=== PATIENT | female | born 1950 | race Caucasian/White ===

== ENCOUNTER 2019-05-15 00:03 | Inpatient (IN) | payer MEDICARE, MEDICAID ==
[~2019-05-15] VITALS: Ht 162.6 cm; Wt 92.6 kg
[2019-05-15 00:03] VITALS: BP 171/70
[~2019-05-15 00:03] MED LIST: NORCO 5-325 TA1 EACH ORAL
--- NOTE | 2019-05-15 00:03 | NUR ---
ED Nurse Note: Patient brought in by RA from home c/o SOB x 12hrs on and off. Saturation 96% on O2 tx @2L/min via nc. Not in any distress. Bilateral lungs are clear. Afebrile. VSS. Patient placed on cardiac cath rn.
--- NOTE | 2019-05-15 00:10 | NUR ---
ED Nurse Note: ERMD at bedside.
--- NOTE | 2019-05-15 00:30 | NUR ---
ED Nurse Note: IV line established. blood specimen collected and sent to lab.
--- NOTE | 2019-05-15 00:37 | NUR ---
ED Nurse Note: Xrya at bedside.
[2019-05-15 00:41] LABS: EOSINOPHILS % (AUTO) 1.5 % (0.0-3.0); HEMATOCRIT 25.7 % (37.0-47.0); HEMOGLOBIN 8.8 G/DL (12.0-16.0); LYMPHOCYTES % (AUTO) 14.5 % (20.0-45.0); MEAN CORPUSCULAR VOLUME 81 FL (80-99); MONOCYTES % (AUTO) 6.3 % (1.0-10.0); NEUTROPHILS % (AUTO) 76.8 % (45.0-75.0); PLATELET COUNT 180 K/UL (150-450); RED BLOOD COUNT 3.15 M/UL (4.20-5.40); RED CELL DISTRIBUTION WIDTH 13.3 % (11.6-14.8); WHITE BLOOD COUNT 7.1 K/UL (4.8-10.8)
[2019-05-15 01:06] LABS: ANION GAP 10 mmol/L (5-15); BLOOD UREA NITROGEN 34 mg/dL (7-18); CALCIUM 8.7 MG/DL (8.5-10.1); CARBON DIOXIDE 24 MMOL/L (21-32); CHLORIDE 112 MMOL/L (98-107); CREATININE 1.1 MG/DL (0.55-1.30); POTASSIUM 3.5 MMOL/L (3.5-5.1); SODIUM 145 MMOL/L (136-145)
[2019-05-15 01:17] LABS: ALANINE AMINOTRANSFERASE 9 U/L (12-78); ALBUMIN 2.8 G/DL (3.4-5.0); ALBUMIN/GLOBULIN RATIO 0.8 (1.0-2.7); ALKALINE PHOSPHATASE 70 U/L (46-116); ASPARTATE AMINO TRANSFERASE 12 U/L (15-37); BILIRUBIN,TOTAL 0.7 MG/DL (0.2-1.0)
--- NOTE | 2019-05-15 01:26 | Diagnostic Imaging Report ---
Indication: Shortness of breath Technique: One view of the chest Comparison: none Findings: There is bilateral interstitial disease, worse on the left than on the right. There is probably a pleural effusion on the left. There is some atelectasis at the right lung base. The heart size is borderline enlarged. There are left axillary surgical clips Impression: Borderline cardiomegaly Left effusion Bilateral interstitial congestion This agrees with the preliminary interpretation provided overnight by [facility] teleradiology service.
[2019-05-15] MEDS ORDERED: Hydromorphone 0.5mg/0.5ml inj IVP ONE ×2 (01:30→02:30)
--- NOTE | 2019-05-15 02:24 | NUR ---
ED Nurse Note: Pt seen sleeping in bed. No SOB. Not in nay distress. Will cont to monitor.
[2019-05-15 02:29] VITALS: BP 141/85
[2019-05-15] MEDS ORDERED: HYDROmorphone 1mg/ml Carpuject SUBQ PRN (04:00)
[2019-05-15 04:01] VITALS: BP 105/63
[2019-05-15] MEDS ORDERED: UNOBMED (04:08)
--- NOTE | 2019-05-15 04:28 | NUR ---
ED Nurse Note: Report given to Godwin STERLING.
[2019-05-15 04:30] VITALS: BP 120/85
--- NOTE | 2019-05-15 04:30 | NUR ---
TRANSFER TO FLOOR: Patient transferred to Telemetry unit. Report given to Godwin Carlton. Pt alert and oriented, verbally responsive. On O2 @2L/min via nc, saturating 100%. sinus rhythm. VSS. IV line on right AC 20g patent and intact. On Levaquin 750mg and NS 500ml, patent and infusing well. Afebrile. Pt unable to recall medications shes taking at home. Belongings list done. Family aware of the transfer.
--- NOTE | 2019-05-15 04:35 | NUR ---
NURSE NOTES: Luz Maria aeronautical test engineer received orders from Dr. Monroy: - Admitted inpatient for Pneumonia - continue home meds - pureed diet - DVT (SCDs) - follow pt's wishes for code status - Tylenol 500 mg PO q4h PRN for mild pain and temp over 100.5 - Dr. Rodriguez for pneumo - Dr. Kristopher Sharma for ID - Dr. Gama for renal - Dr. Kaur for cardio
[2019-05-15 04:45] VITALS: BP 159/73
--- NOTE | 2019-05-15 04:55 | NUR ---
NURSE NOTES: Received pt from [facility] alert and oriented x4 with no acute s/s of distress noted. Pale and jaundiced in appearance. On 2L NC, saturating at 99% VS stable, c/o of 8/10 headache. No wounds noted upon admission - but pt has notable dry scab scratches on bilateral lower extremities. Pt has only 1 night gown with her which pt refuses to remove and refuses to wear hospital gown. ekg monitor tech - Sinus Rhythm (78). Bed in lowest position, call light and belongings within reach.
--- NOTE | 2019-05-15 04:57 | NUR ---
NURSE NOTES: Pt unable to recall home meds. RN called and left message for son Bishop York ([phone]) to obtain meds, son did not answer phone call. Will ask morning shift to follow up.
--- NOTE | 2019-05-15 05:10 | NUR ---
NURSE NOTES: RN called son Fracisco York ([phone]) to obtain home meds for patient. Per Fracisco, "I did not consent to my mom to be admitted to this hospitall. She said that she wanted to be admitted to [facility] since her doctors are there." RN spoke with patient who stated, "When can I leave and be transferred to [facility]?" RN spoke with patient that she is admitted in telemetry unit of [facility] and transfer to [facility] will require further documentation, steps, and phone calls to accommodate transfer. Pt stated, "No, no. I wanted to be transferred to [facility], I did not want to be admitted in this hospital. My doctors are at [facility], they know how to take care of me." RN spoke with son, Fracisco, who stated that he will come in the AM to see his mom and speak to physician.
--- NOTE | 2019-05-15 05:27 | Emergency Room Report ---
History of Present Illness General Chief Complaint: Upper Respiratory Illness Source: Patient Present Illness HPI 69-year-old female presents ED for evaluation. Brought in by EMS from home. Complaining of shortness of breath x1 day. On and off. Denies chest pain. Denies cough. Denies fevers or chills. Status post renal transplant x2. Is on multiple medications. States she is compliant with her medications. States she was hospitalized about 1 month ago at [facility]. No other aggravating relieving factors. Denies any other associated symptoms Allergies: Coded Allergies: No Known Allergies (Unverified , 06/26/17) Patient History Past Medical History: DM, HTN, CHF Past Surgical History: other - kidney transplnt Pertinent Family History: none Social History: Denies: smoking, alcohol use, drug use Last Menstrual Period: na Now: No : 2 Para: 2 Immunizations: UTD Reviewed Nursing Documentation: PMH: Agreed; PSxH: Agreed Nursing Documentation-PMH Hx Cardiac Problems: Yes - CHF Hx Hypertension: Yes Hx Diabetes: Yes Hx Dialysis: No - kidney transplant Review of Systems All Other Systems: negative except mentioned in HPI Physical Exam Vital Signs Date Time Temp Pulse Resp B/P (MAP) Pulse Ox O2 Delivery O2 Flow Rate FiO2 05/14/19 23:57 97.9 84 20 171/70 (103) 93 Room Air 05/15/19 00:03 2.0 Sp02 EP Interpretation: reviewed, normal General Appearance: no apparent distress, alert, GCS 15, non-toxic Head: normocephalic, atraumatic Eyes: bilateral eye normal inspection, bilateral eye PERRL ENT: hearing grossly normal, normal pharynx, no angioedema, normal voice Neck: full range of motion, supple/symm/no masses Respiratory: chest non-tender, normal breath sounds, crackles, speaking full sentences Cardiovascular #1: regular rate, rhythm, no edema Cardiovascular #2: 2+ carotid (R), 2+ carotid (L), 2+ radial (R), 2+ radial (L) , 2+ dorsalis pedis (R), 2+ dorsalis pedis (L) Gastrointestinal: normal bowel sounds, non tender, soft, non-distended, no guarding, no rebound Rectal: deferred Genitourinary: normal inspection, no CVA tenderness Musculoskeletal: back normal, normal range of motion, gait/station normal, non- tender Neurologic: alert, motor strength/tone normal, oriented x3, sensory intact, responsive, speech normal Psychiatric: judgement/insight normal, memory normal, mood/affect normal, no suicidal/homicidal ideation Reflexes: 3+ bicep (R), 3+ bicep (L), 3+ tricep (R), 3+ tricep (L), 3+ knee (R) , 3+ knee (L) Skin: other - see nursing skin notes Lymphatic: no adenopathy Medical Decision Making Diagnostic Impression: Primary Impression: Pneumonia Qualified Codes: J18.9 - Pneumonia, unspecified organism Additional Impressions: CHF (congestive heart failure) Qualified Codes: I50.9 - Heart failure, unspecified Renal transplant, status post ER Course Hospital Course 69-year-old female presents ED complaining of shortness of breath Differential diagnoses include: IN/unstable angina, contusion, muscle strain, PTX, rib fracture Clinical course Patient placed on stretcher. on quality assurance monitor final. After initial history and physical I ordered labs, EKG, chest x-ray labs reviewed- no leukocytosis, hemoglobin/hematocrit stable, Cr ok, troponins negative, BNP elevated EKG - NSR, no acute ischemic changes inteprreted by me Chest x-ray- intersttial congestion - CHF vs PNA Multiple attempts made to contact PMD Dr. Bishop Villar. [facility] unable to accept patient at this time. Antibiotics given. Case discussed with Dr. Monroy and he agreed to accept the patient to his service for further care and support I. I feel this is a highly complex case requiring extensive working including EKG/Rhythm strip, Xray/CT/US, Blood/urine lab work, repeat exams while in ED, and administration of strong opiates/narcotics for pain control, admission to hospital or close patient follow up. Diagnosis - PNA, CHF, s/p renal transplant admitted to telemetry in serious condition Labs Test 05/15/19 00:31 05/15/19 03:40 White Blood Count 7.1 K/UL (4.8-10.8) Red Blood Count 3.15 M/UL (4.20-5.40) Hemoglobin 8.8 G/DL (12.0-16.0) Hematocrit 25.7 % (37.0-47.0) Mean Corpuscular Volume 81 FL (80-99) Mean Corpuscular Hemoglobin 27.9 PG (27.0-31.0) Mean Corpuscular Hemoglobin Concent 34.3 G/DL (32.0-36.0) Red Cell Distribution Width 13.3 % (11.6-14.8) Platelet Count 180 K/UL (150-450) Mean Platelet Volume 6.0 FL (6.5-10.1) Neutrophils (%) (Auto) 76.8 % (45.0-75.0) Lymphocytes (%) (Auto) 14.5 % (20.0-45.0) Monocytes (%) (Auto) 6.3 % (1.0-10.0) Eosinophils (%) (Auto) 1.5 % (0.0-3.0) Basophils (%) (Auto) 1.0 % (0.0-2.0) Sodium Level 145 MMOL/L (136-145) Potassium Level 3.5 MMOL/L (3.5-5.1) Chloride Level 112 MMOL/L (98-107) Carbon Dioxide Level 24 MMOL/L (21-32) Anion Gap 10 mmol/L (5-15) Blood Urea Nitrogen 34 mg/dL (7-18) Creatinine 1.1 MG/DL (0.55-1.30) Estimat Glomerular Filtration Rate mL/min (>60) Glucose Level 209 MG/DL (74-106) Calcium Level 8.7 MG/DL (8.5-10.1) Total Bilirubin 0.7 MG/DL (0.2-1.0) Aspartate Amino Transf (AST/SGOT) 12 U/L (15-37) Alanine Aminotransferase (ALT/SGPT) 9 U/L (12-78) Alkaline Phosphatase 70 U/L (46-116) Troponin I 0.036 ng/mL (0.000-0.056) Pro-B-Type Natriuretic Peptide 8488 pg/mL (0-125) Total Protein 6.2 G/DL (6.4-8.2) Albumin 2.8 G/DL (3.4-5.0) Globulin 3.4 g/dL Albumin/Globulin Ratio 0.8 (1.0-2.7) Lactic Acid Level 0.80 mmol/L (0.4-2.0) EKG Diagnostic Results Rate: normal Rhythm: NSR ST Segments: no acute changes ASA given to the pt in ED: No Rhythm Strip Diag. Results EP Interpretation: yes Rhythm: NSR, no PVC's, no ectopy Chest X-Ray Diagnostic Results Chest X-Ray Diagnostic Results : Chest X-Ray Ordered: Yes # of Views/Limited/Complete: 1 View Indication: Shortness of Breath EP Interpretation: Yes Interpretation: no pneumothorax, other - bilateral insterstitial infiltrates Impression: Other - chf/pna Electronically Signed by: Electronically signed by Kelvin Lindquist MD Last Vital Signs Date Time Temp Pulse Resp B/P (MAP) Pulse Ox O2 Delivery O2 Flow Rate FiO2 05/15/19 04:45 97.8 82 18 159/73 (101) 99 05/15/19 04:30 Nasal Cannula 2.0 Status: improved Disposition: ADMITTED INPATIENT Condition: Serious Referrals: NOT CHOSEN IPA/,REFERRING (PCP) Kelvin Lindquist MD May 15, 2019 05:27
--- NOTE | 2019-05-15 06:14 | NUR ---
NURSE NOTES: Son Fracisco arrived at bedside to pickle solution maker his mom and indicated his intention of leaving with the patient upon further discussion with her. Charge Nurse Luz Maria made aware.
--- NOTE | 2019-05-15 06:30 | NUR ---
NURSE NOTES: Pt and son informed RN that they wanted to leave against medical advice. RN advised pt and son that she is on Oxygen and advised them of risks of taking off Oxygen if she is unable to tolerate room air. Pt was adamant, "I don't care, I just want to go. You can take it off and see how I am without it, I'm okay." Son at bedside agreed to follow through with his mother's wishes, agreed to have pt be taken off Oxygen. Pt saturated at 96% at room air, breathing even and unlabored. RN informed Dr. Monroy and spoke with him regarding pt and son's wishes to leave the hospital and go to [facility] to be admitted there. Dr. Monroy, Charge Nurse Luz Maria, and Bakery And Deli Sales Manager No made aware of AMA.
--- NOTE | 2019-05-15 06:42 | NUR ---
AMA: Pt left in stable condition, on room air with son Fracisco in private vehicle. Pt refused to wear blanket or jacket upon transportation to private vehicle. IV site d/lory and wrist band removed as per protocol. Belongings with patient upon discharge. Upon removing IV, some of pt's blood got on blue night gown. Patient requested to have night gown be thrown away in trash, RN informed son Fracisco who agreed to follow with his mom's wishes. No new wounds noted upon discharge. SEE AMA FORM. Addendum: 05/15/19 at 0814 by Godwin Urias RN Patient and son, Fracisco York, both signed AMA form.
[2019-05-15] MEDS ORDERED: cefTRIAXone 1 GM in D5W 55 ML IVPB SCH (09:00)
--- NOTE | 2019-05-15 15:20 | Cardiology Report ---
APPROVED REPORT EKG Measurement Heart [id number] Sinus rhythm with marked sinus arrhythmia Septal infarct, age undetermined Abnormal ECG
--- NOTE | 2019-05-16 05:45 | History and Physical Report ---
DATE OF ADMISSION: 05/15/2019 HISTORY OF PRESENT ILLNESS: Please let this serve as History and Physical because the patient left against medical advice before I could see her. The patient just upon arrival to the floor, a couple of hours later insisted adamantly on leaving against medical advice. She wanted to go to [facility] and did not want to be admitted here. So, the patient left against medical advice a couple of hours after admission, and I could not do a History and Physical. So, please let this serve as History and Physical for the admission since she left AMA. The patient was a kidney transplant patient, and she was initially admitted for pneumonia and Dr. Bishop Mendoza is her early childhood education instructor. However, the patient signed AMA and wanted to go to [facility]. Originally came in with shortness of breath and was admitted for pneumonia. Cannot detail anymore because the patient left, and I could not obtain any history from the patient. Naomi Monroy M.D. DR: WILLEM JOB#: [id number] CC:
--- NOTE | 2019-05-16 10:39 | Discharge Summary ---
Discharge Summary Discharge Summary _ DATE OF ADMISSION: 05/15/2019 DATE OF DISCHARGE: 05/15/2019 Patient left AGAINST MEDICAL ADVICE REASON FOR ADMISSION: 69 years old female with past medical history of diabetes mellitus, congestive heart failure, hypertension, kidney transplantx2, presented to emergency room for evaluation complaining of intermittent shortness of breath for 1 day. Patient denied chest pain. Patient denied cough. Patient denied fever and chills. Patient reported compliance with her medications. Patient was hospitalized 1 month ago and [facility]. Upon evaluation patient required supplemental oxygen 2 L via nasal cannula to keep with oximetry above 92%. Blood pressure was high 171/70 , patient was afebrile. Laboratory work-up revealed no leukocytosis, hemoglobin 8.8 , hematocrit 25.7 , platelet count 180. Stable electrolytes. BUN 34, creatinine 1.1. Glucose 209. Troponin 0.036, pro BNP 8488 . Lactic acid 0.8. EKG revealed sinus rhythm with marked sinus arrhythmia. Chest x-ray revealed bilateral interstitial infiltrates , borderline cardiomegaly. In emergency department multiple attempts were made to reach her primary care provider Dr. Bishop Villar. [facility] did not accept the patient at this time. In ED Patient received empriic antibitoic and admitted to telemetry floor for further management. HOSPITAL COURSE: Patient admitted to telemetry floor . Supplemental oxygen provided and titrated to keep pulse oximetry above 92%. Pulse oximetry was stable on room air . Patient stayed only few hours and then decided to leave AMA and go to [facility]. The risks and consequences of signing AGAINST MEDICAL ADVICE were discussed with patient in detail. Patient verbalized understanding, nevertheless signed AMA form and left. FINAL DIAGNOSES: Pneumonia Congestive heart failure Status post renal transplantx2 I have been assigned to dictate discharge summary for this account. I was not involved in the patient's management. Dede Bryant NP May 16, 2019 10:39
== END 2019-05-15 06:55 | disposition left against medical advice (07) | DRG 194 ==
LOC: EDBD 00:03 → EMR 00:56 → 2E 03:35 → EDBEDREQ 04:07
DX: J18.9 Pneumonia, unspecified organism (principal); Z94.0 Kidney transplant status; I11.0 Hypertensive heart disease with heart failure; I50.9 Heart failure, unspecified; E11.9 Type 2 diabetes mellitus without complications; Z53.29 Procedure and treatment not carried out because of patient's decision for other reasons
CPT/HCPCS: 36415; 71045; 80053; 83605; 83880; 84484; 85025; 86710; 87040; 93005; 96365; 96375; 96376; 99285

== ENCOUNTER 2019-05-31 08:45 | Inpatient (IN) | payer MEDICARE, MEDICAID ==
[~2019-05-31] VITALS: Ht 157.5 cm; Wt 78.6 kg
[2019-05-31] VITALS (13 sets, daily range): BP systolic 88–110; BP diastolic 33–81
[~2019-05-31 08:45] MED LIST changes: +UNOBMED
--- NOTE | 2019-05-31 08:45 | NUR ---
ED Nurse Note: Pt BIBA from home with the c/o severe pain on LT leg. Pt is AOx4, cooperative. Per Pt she is claustrophobic. VSS. Per EMT pt has hx of DM and prev. kidney transplant. Placed on bed, hooked to director of cardiac cath lab.
--- NOTE | 2019-05-31 08:50 | NUR ---
ED Nurse Note: ERMD on bedside.
[2019-05-31] MEDS ORDERED: Morphine Sulfate 2mg/ml Inj(IV/IM USE ONLY) IM ONE (09:00)
--- NOTE | 2019-05-31 09:00 | NUR ---
ED Nurse Note: Pt still on stable condition. Able to obtain blood specimen, sent to labs.
--- NOTE | 2019-05-31 09:11 | Emergency Room Report ---
History of Present Illness General Chief Complaint: Lower Extremity Injury Source: Patient, EMS Present Illness HPI Patient presents with complaint of left leg pain Points mainly to the ankle on the lower leg region Did not complain of any knee pain or pelvic pain to me however there was report of possible discomfort from below the knee down to the ankle itself Denies any fall or trauma denies any chest pain or shortness of breath Patient reports that it has been hurting since last night she had a difficult time sleeping and presents for further evaluation On review of medical records there is significant past medical history including renal transplant, CHF, vascular disease Allergies: Coded Allergies: No Known Allergies (Unverified , 06/26/17) Patient History Past Medical History: see triage record Reviewed Nursing Documentation: PMH: Agreed; PSxH: Agreed Nursing Documentation-PMH Past Medical History: No History, Except For Hx Cardiac Problems: Yes - CKD Hx Hypertension: Yes Hx Diabetes: Yes Hx Cancer: No Hx Gastrointestinal Problems: No Hx Dialysis: No - kidney transplant Hx Neurological Problems: No Review of Systems All Other Systems: negative except mentioned in HPI Physical Exam Vital Signs Date Time Temp Pulse Resp B/P (MAP) Pulse Ox O2 Delivery O2 Flow Rate FiO2 05/31/19 08:39 98.1 99 20 119/59 (79) 94 Room Air Sp02 EP Interpretation: reviewed, normal General Appearance: moderate distress - Patient screaming in pain Head: normocephalic, atraumatic Eyes: bilateral eye PERRL, bilateral eye EOMI ENT: EOM grossly intact Neck: supple Respiratory: lungs clear, no respiratory distress, no retraction Cardiovascular #1: regular rate, rhythm Gastrointestinal: non tender, soft Musculoskeletal: other - Tenderness over the mid left dorsal foot no obvious erythema or fluctuance some minimal swelling is noted to the left calf area Neurologic: alert, oriented x3 Skin: other - Multiple areas of bruising Lymphatic: no adenopathy Procedures Critical Care Time Critical Care Time 80 minutes for multiple re-evaluations critical findings and presentation concerning for acute cardiopulmonary arrest not including any procedural time Medical Decision Making Diagnostic Impression: Primary Impression: GI bleed Additional Impressions: Leg pain Toe fracture, left ER Course On initial presentation multiple differentials including but not limited to acute fracture, DVT, sprain entertained patient did appear pale And blood work were also initiated and hemoglobin does return at 4.9 Patient remained in significant pain low-dose Dilaudid was provided which the patient requested she continued to scream Continuously and another dose of pain medication was provided Patient's x-ray shows some congestion However did not complain of any shortness of breath Patient has emergent type and screen provided and 1 unit was given in the ER of packed red blood cells Venous ultrasound does not reveal any obvious DVT and patient admitted to inpatient care for further evaluation Please note that the patient's foot x-ray did reveal evidence of acute third phalangeal fracture, given the patient's initial acute distress and delay in imaging Further intervention was deferred to inpatient process regarding any splint which the patient was not tolerating Labs Test 05/31/19 09:15 05/31/19 09:50 05/31/19 12:37 05/31/19 19:45 White Blood Count 11.7 K/UL (4.8-10.8) 10.5 K/UL (4.8-10.8) Red Blood Count 1.73 M/UL (4.20-5.40) 1.97 M/UL (4.20-5.40) Hemoglobin 4.9 G/DL (12.0-16.0) 5.7 G/DL (12.0-16.0) Hematocrit 14.8 % (37.0-47.0) 17.6 % (37.0-47.0) Mean Corpuscular Volume 86 FL (80-99) 89 FL (80-99) Mean Corpuscular Hemoglobin 28.2 PG (27.0-31.0) 29.1 PG (27.0-31.0) Mean Corpuscular Hemoglobin Concent 33.0 G/DL (32.0-36.0) 32.6 G/DL (32.0-36.0) Red Cell Distribution Width 18.2 % (11.6-14.8) 15.0 % (11.6-14.8) Platelet Count 206 K/UL (150-450) 167 K/UL (150-450) Mean Platelet Volume 5.8 FL (6.5-10.1) 6.5 FL (6.5-10.1) Neutrophils (%) (Auto) % (45.0-75.0) 81.4 % (45.0-75.0) Lymphocytes (%) (Auto) % (20.0-45.0) 10.2 % (20.0-45.0) Monocytes (%) (Auto) % (1.0-10.0) 6.7 % (1.0-10.0) Eosinophils (%) (Auto) % (0.0-3.0) 1.2 % (0.0-3.0) Basophils (%) (Auto) % (0.0-2.0) 0.5 % (0.0-2.0) Differential Total Cells Counted 100 Neutrophils % (Manual) 78 % (45-75) Lymphocytes % (Manual) 17 % (20-45) Monocytes % (Manual) 4 % (1-10) Eosinophils % (Manual) 1 % (0-3) Basophils % (Manual) 0 % (0-2) Band Neutrophils 0 % (0-8) Platelet Estimate Adequate Platelet Morphology Normal Polychromasia 1+ Hypochromasia 1+ Anisocytosis 2+ Sodium Level 138 MMOL/L (136-145) 138 MMOL/L (136-145) Potassium Level 4.1 MMOL/L (3.5-5.1) 4.5 MMOL/L (3.5-5.1) Chloride Level 108 MMOL/L (98-107) 108 MMOL/L (98-107) Carbon Dioxide Level 21 MMOL/L (21-32) 18 MMOL/L (21-32) Anion Gap 9 mmol/L (5-15) 12 mmol/L (5-15) Blood Urea Nitrogen 68 mg/dL (7-18) 68 mg/dL (7-18) Creatinine 1.0 MG/DL (0.55-1.30) 0.9 MG/DL (0.55-1.30) Estimat Glomerular Filtration Rate mL/min (>60) mL/min (>60) Glucose Level 153 MG/DL (74-106) 125 MG/DL (74-106) Calcium Level 8.7 MG/DL (8.5-10.1) 8.8 MG/DL (8.5-10.1) Troponin I 0.029 ng/mL (0.000-0.056) Prothrombin Time 13.0 SEC (9.30-11.50) Prothromb Time International Ratio 1.2 (0.9-1.1) Activated Partial Thromboplast Time 26 SEC (23-33) Arterial Blood pH 7.295 (7.350-7.450) Arterial Blood Partial Pressure CO2 45.0 mmHg (35.0-45.0) Arterial Blood Partial Pressure O2 147.8 mmHg (75.0-100.0) Arterial Blood HCO3 21.4 mmol/L (22.0-26.0) Arterial Blood Oxygen Saturation 97.7 % (95-100) Arterial Blood Base Excess -4.6 (-2-2) Rodolfo Test Positive Pro-B-Type Natriuretic Peptide 5831 pg/mL (0-125) Test 06/01/19 01:23 06/01/19 06:20 White Blood Count 10.2 K/UL (4.8-10.8) Red Blood Count 2.31 M/UL (4.20-5.40) Hemoglobin 6.9 G/DL (12.0-16.0) Hematocrit 20.0 % (37.0-47.0) Mean Corpuscular Volume 86 FL (80-99) Mean Corpuscular Hemoglobin 29.8 PG (27.0-31.0) Mean Corpuscular Hemoglobin Concent 34.5 G/DL (32.0-36.0) Red Cell Distribution Width 15.2 % (11.6-14.8) Platelet Count 160 K/UL (150-450) Mean Platelet Volume 6.6 FL (6.5-10.1) Neutrophils (%) (Auto) % (45.0-75.0) Lymphocytes (%) (Auto) % (20.0-45.0) Monocytes (%) (Auto) % (1.0-10.0) Eosinophils (%) (Auto) % (0.0-3.0) Basophils (%) (Auto) % (0.0-2.0) Differential Total Cells Counted 100 Neutrophils % (Manual) 77 % (45-75) Lymphocytes % (Manual) 14 % (20-45) Monocytes % (Manual) 8 % (1-10) Eosinophils % (Manual) 1 % (0-3) Basophils % (Manual) 0 % (0-2) Band Neutrophils 0 % (0-8) Platelet Estimate Adequate Platelet Morphology Normal EKG Diagnostic Results Rate: normal Rhythm: NSR ST Segments: other - Nonspecific ST and T wave changes Rhythm Strip Diag. Results EP Interpretation: yes Rate: 77 Rhythm: NSR, no PVC's, no ectopy Chest X-Ray Diagnostic Results Chest X-Ray Diagnostic Results : Chest X-Ray Ordered: Yes # of Views/Limited/Complete: 1 View Indication: Chest Pain EP Interpretation: Yes Interpretation: no consolidation, no pneumothorax, other - Pulmonary congestion Impression: Other - Pulmonary congestion Electronically Signed by: Naomi Antunez DO Other X-Ray Diagnostic Results Other X-Ray Diagnostic Results : X-Ray ordered: Left foot # of Views/Limited Vs Complete: 3 View Indication: Pain EP Interpretation: Yes Interpretation: no dislocation, no soft tissue swelling, other - Proximal third phalanx fracture Impression: Other - Proximal third phalanx fracture Electronically Signed by: Naomi Antunez DO Last Vital Signs Date Time Temp Pulse Resp B/P (MAP) Pulse Ox O2 Delivery O2 Flow Rate FiO2 05/31/19 08:39 98.1 99 20 119/59 (79) 94 Room Air Status: improved Disposition: ADMITTED INPATIENT Condition: Critical Referrals: NOT CHOSEN IPA/,REFERRING (PCP) Naomi Antunez DO May 31, 2019 09:11
[2019-05-31 09:31] LABS: HEMATOCRIT 14.8 % (37.0-47.0); MEAN CORPUSCULAR VOLUME 86 FL (80-99); PLATELET COUNT 206 K/UL (150-450); RED BLOOD COUNT 1.73 M/UL (4.20-5.40); RED CELL DISTRIBUTION WIDTH 18.2 % (11.6-14.8); WHITE BLOOD COUNT 11.7 K/UL (4.8-10.8)
[2019-05-31 09:35] LABS: HEMOGLOBIN 4.9 G/DL (12.0-16.0)
[2019-05-31 09:40] LABS: ANION GAP 9 mmol/L (5-15); BLOOD UREA NITROGEN 68 mg/dL (7-18); CALCIUM 8.7 MG/DL (8.5-10.1); CARBON DIOXIDE 21 MMOL/L (21-32); CHLORIDE 108 MMOL/L (98-107); POTASSIUM 4.1 MMOL/L (3.5-5.1); SODIUM 138 MMOL/L (136-145)
[2019-05-31] MEDS ORDERED: Hydromorphone 0.5mg/0.5ml inj IVP ONE (10:00)
[2019-05-31] MEDS ORDERED: HYDROmorphone 1mg/ml Carpuject IVP ONE (10:15)
[2019-05-31 10:45] LABS: INR 1.2 (0.9-1.1)
--- NOTE | 2019-05-31 11:07 | NUR ---
ED Nurse Note: Dr. Antunez spoke with pt's son, Fracisco York ; obtained telephone consent for blood transfusion.
--- NOTE | 2019-05-31 11:57 | Diagnostic Imaging Report ---
Indication: Foot pain Comparison: None Findings: 3 views of the left foot were obtained. There is a fracture involving the base of the fourth proximal phalange and suspected fracture at the base of the third proximal phalange as well. The bones are osteopenic. There are extensive small vessel arterial calcifications which may be related to renal disease or secondary hyperparathyroidism. Please correlate clinically. The bones are osteopenic. Osteoarthritis noted with marginal osteophytes joint space narrowing involving the foot and several locations. IMPRESSION: Suspected acute fractures involving the base of the third and fourth proximal phalanges. Osteoporosis. Other findings as above
--- NOTE | 2019-05-31 11:58 | Diagnostic Imaging Report ---
Indication: Dyspnea Comparison: 05/15/2019 A single view chest radiograph was obtained. Findings: Mixed interstitial alveolar opacities demonstrated within the lungs bilaterally. There is evidence of a left pleural effusion. Heart is enlarged. Lung volumes are low. Aorta is moderately calcified. Bones are osteopenic. IMPRESSION: Pulmonary edema. Left pleural effusion
--- NOTE | 2019-05-31 12:10 | Diagnostic Imaging Report ---
Indication: Left lower extremity pain and swelling. Technique: Duplex Doppler imaging performed from the left common femoral vein to the popliteal vein. FINDINGS: Normal compressibility demonstrated from the common femoral vein to the popliteal vein. Respiratory phasicity and good augmentation demonstrated on waveform analysis. There is no evidence of thrombosis. IMPRESSION: No evidence of deep venous thrombosis within the left lower extremity.
[2019-05-31] MEDS ORDERED: Albuterol/Ipratropium 3ml neb HHN PRN (12:15)
[2019-05-31] MEDS ORDERED: Pantoprazole Inj IV SCH (12:15)
[2019-05-31] MEDS ORDERED: HYDROmorphone 1mg/ml Carpuject IVP PRN (12:15)
--- NOTE | 2019-05-31 12:20 | History and Physical ---
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 Denies any fall or trauma denies any chest pain or shortness of breath. Patient reports that it has been hurting since last night she had a difficult time sleeping and presents for further evaluation. Information obtained from reviewing medical chart. At the time of my exam patient is lethargic on NRB mask. of note, early May she presented with shortness of breath patient was seen at [facility] early May before she signed out AMA and her son took her to [facility] 5 minutes after she got home. She was started on IV Lasix and continued on her antirejection medications. She also had PARAMJIT due to Toradol given in the ER and her creatinine returned to baseline. She continued on anticoagulation. She was stable to be discharged home Per [facility] records she had a EGD 01/30/19: medium amount of blood in stomach. Normal duodenum bulb and 2nd portion. S/p colonoscopy 01/30/2019: Diverticulosis left colon, non bleeding internal hemorrhoids. In the ER she was found to have hemoglobin 4.9, Bun 68, cr 1.0, and was pale. Received 2 units prbc Pain medication Placed on Oxygen mask Past medical history: As above Past surgical history: Cholecystectomy, renal transplant Family and social history: unable to obtain due to mental status Per [facility] chart review:Medications: BuSpar on 10 mg twice daily, Fioricet 50- 325-40 as needed for headache, carvedilol 25 mg twice daily, cinacalcet 30 mg every Monday, Starlix 120 mg 1 tab 3 times a day, nifedipine 30 mg daily, prednisone 5 mg daily Protonix 40 mg daily Xarelto 20 mg daily rosuvastatin 40 mg nightly, tacrolimus 1 mg every 12 hours, torsemide 20 mg daily, tramadol 50 mg every 4 hours as needed for pain ROS: unable to obtain due to mental status Allergies: Coded Allergies: No Known Allergies (Unverified , 06/26/17) Medication History Scheduled Amlodipine Besylate (Norvasc), 10 MG ORAL DAILY, (Reported) Buspirone Hcl* (Buspirone Hcl*), 10 MG ORAL BID, (Reported) Carvedilol* (Carvedilol*), 25 MG ORAL BID, (Reported) Cinacalcet* (Sensipar*), 30 MG ORAL THREE TIMES A WEEK, (Reported) Gabapentin* (Gabapentin*), 300 MG ORAL THREE TIMES A DAY, (Reported) Glipizide* (Glipizide*), 5 MG ORAL BIDAC, (Reported) Irbesartan* (Avapro*), 150 MG ORAL BID, (Reported) Lidocaine Patch* (Lidoderm Patch*), 1 PATCH TOPIC Q12HR, (Reported) Linagliptin (Tradjenta), 5 MG PO DAILY, (Reported) Magnesium Oxide (Magnesium), 400 MG PO DAILY, (Reported) Mycophenolate Mofetil (Mycophenolate Mofetil), 500 MG PO BID, (Reported) Nateglinide (Nateglinide), 120 MG PO THREE TIMES A DAY, (Reported) Pantoprazole* (Protonix*), 40 MG ORAL DAILY, (Reported) Potassium Chloride* (K-Dur*), 20 MEQ ORAL BID, (Reported) Prednisolone* (Prelone*), 5 MG ORAL DAILY, (Reported) Rosuvastatin Calcium* (Crestor*), 40 MG ORAL DAILY, (Reported) Tacrolimus (Tacrolimus), 2 MG PO BID, (Reported) Torsemide* (Demadex*), 20 MG ORAL DAILY, (Reported) Scheduled PRN Benzonatate* (Benzonatate*), 100 MG ORAL THREE TIMES A DAY PRN for For Cough, ( Reported) Butalb/Acetaminophen/Caffeine (Alazak-Xxpaolry-Okoh 50-325-40), Unknown Dose PO Q4HR PRN for HEADACHE, (Reported) Hydrocodone Bit/Acetaminophen 5-325* (Realitos 5-325*), 1 TAB ORAL Q6H PRN for For Pain Nitroglycerin 0.4MG table* (Nitroglycerin*), 0.4 MG SL Q 5MINS PRN for CHEST PAIN, (Reported) Tramadol Hcl* (Ultram*), 50 MG ORAL Q4HR PRN for For Pain, (Reported) Miscellaneous Medications Unable to Obtain Medications (Unable To Obtain Meds), (Reported) Discontinued Medications Tacrolimus (Tacrolimus), 0.5 GM MC Q12HR, (Reported) Discontinued Reason: Medication dose changed Patient History Healthcare decision maker Resuscitation status Advanced Directive on File Physical Exam Physical Exam Narrative General Appearance: respiratory distress on nrb mask, lethargic, gutierrez snot follow commands, pale Head: normocephalic, atraumatic Eyes: bilateral eye PERRL, bilateral eye EOMI ENT: EOM grossly intact Neck: supple Respiratory: lungs clear, no respiratory distress, no retraction Cardiovascular : regular rate, rhythm, no m/r/g, no edema Gastrointestinal: non tender, soft, non distended Musculoskeletal: Tenderness over the mid left dorsal foot Neurologic: Lethargic Skin: Multiple areas of bruising Last 24 Hour Vital Signs Date Time Temp Pulse Resp B/P (MAP) Pulse Ox O2 Delivery O2 Flow Rate FiO2 05/31/19 11:00 98.0 82 14 101/47 100 Simple Mask 10.0 05/31/19 09:50 98.0 05/31/19 08:39 98.1 99 20 119/59 (79) 94 Room Air Laboratory Tests Test 05/31/19 09:15 05/31/19 09:50 White Blood Count 11.7 K/UL (4.8-10.8) H Red Blood Count 1.73 M/UL (4.20-5.40) L Hemoglobin 4.9 G/DL (12.0-16.0) *L Hematocrit 14.8 % (37.0-47.0) L Mean Corpuscular Volume 86 FL (80-99) Mean Corpuscular Hemoglobin 28.2 PG (27.0-31.0) Mean Corpuscular Hemoglobin Concent 33.0 G/DL (32.0-36.0) Red Cell Distribution Width 18.2 % (11.6-14.8) H Platelet Count 206 K/UL (150-450) Mean Platelet Volume 5.8 FL (6.5-10.1) L Neutrophils (%) (Auto) % (45.0-75.0) Lymphocytes (%) (Auto) % (20.0-45.0) Monocytes (%) (Auto) % (1.0-10.0) Eosinophils (%) (Auto) % (0.0-3.0) Basophils (%) (Auto) % (0.0-2.0) Differential Total Cells Counted 100 Neutrophils % (Manual) 78 % (45-75) H Lymphocytes % (Manual) 17 % (20-45) L Monocytes % (Manual) 4 % (1-10) Eosinophils % (Manual) 1 % (0-3) Basophils % (Manual) 0 % (0-2) Band Neutrophils 0 % (0-8) Platelet Estimate Adequate Platelet Morphology Normal Polychromasia 1+ Hypochromasia 1+ Anisocytosis 2+ Sodium Level 138 MMOL/L (136-145) Potassium Level 4.1 MMOL/L (3.5-5.1) Chloride Level 108 MMOL/L (98-107) H Carbon Dioxide Level 21 MMOL/L (21-32) Anion Gap 9 mmol/L (5-15) Blood Urea Nitrogen 68 mg/dL (7-18) H Creatinine 1.0 MG/DL (0.55-1.30) Estimat Glomerular Filtration Rate mL/min (>60) Glucose Level 153 MG/DL (74-106) H Calcium Level 8.7 MG/DL (8.5-10.1) Troponin I 0.029 ng/mL (0.000-0.056) Prothrombin Time 13.0 SEC (9.30-11.50) H Prothromb Time International Ratio 1.2 (0.9-1.1) H Activated Partial Thromboplast Time 26 SEC (23-33) Height (Feet): 5 Height (Inches): 2.00 Weight (Pounds): 180 Objective Narrative CXR: pulmonary edema, L base effusion Foot xr: suspected acute fractures involving base of the 3rd and 4th proximal phalanges, osteoporosis Duplex LLE: negative for DVT EKG strip, personally reviewed by me: NSR@ 92 bpm, non specific acute st-t changes Assessment/Plan Status: stable Assessment/Plan: 69 year old female, with acute GI bleed likely upper. #Acute Encephalopathy. ? Dilaudid induced vs hypoxic #Acute upper GI bleed #Left foot base 3rd nad 4th phalanges fracture #CKD secondary to obstructive uropathy status post cadaveric renal transplant x2 on chronic immunosuppression #CAD #atrial fibrillation #hypertension #HFpEF #DM II #carotid stenosis #History of CVA Plan: -Admit to ICU -Transfuse prbc to hgb 8 given cardiac history . PPI bolus 80 mg, then drip -GI consult stat -Check stool for occult blood -Check ABG -Place on bipap -NPO -Hold home bp medications -Immunosuppression per nephrology consult -Ortho consult once hemodynamically more stable -Pain control -Call family, obtain further information, medication records -PCP: Bishop Villar -code: full code -vte ppx: NABIL mirza I spent 75 minutes on this patient's case, and 40 mins was dedicated to critical care Critical Care Services performed include: Telemetry Review Hemodynamic measurement interpretation Laboratory data review and interpretation Radiology image review and interpretation Interpretation of ABG's Discussion of patient's care with ICU team, ICU Nursing staff and/or consulting services time of this note may not reflect time of encounter. Cristian Zambrano M.D. May 31, 2019 12:20
[2019-05-31] MEDS ORDERED: Pantoprazole Inj IVP SCH (12:45)
--- NOTE | 2019-05-31 13:00 | NUR ---
ED Nurse Note: Pt still on blood transfusion; VSS, no signs of acute distress. Placed bed on low position, both side rails up. Will continue to monitor.
[2019-05-31] MEDS ORDERED: Pantoprazole Inj ONE (13:04)
--- NOTE | 2019-05-31 13:37 | NUR ---
ED Nurse Note: Per Dr. Antunez pt is okay to be on BIPAP once transferred to SDU.
--- NOTE | 2019-05-31 13:41 | NUR ---
NURSE NOTES: Received report ED ASHER Solis Addendum: 05/31/19 at 1428 by Onel GUERRA RN Primary ASHER Mari notified patient coming ,i got report
--- NOTE | 2019-05-31 13:50 | NUR ---
ED Nurse Note: per Dr. Antunez, ok to transfer the patient at this time, 2nd unit of PRBC can be started up stairs. RT paged.
--- NOTE | 2019-05-31 14:00 | NUR ---
TRANSFER TO [facility]: Patient transferred to [facility] RM 243-1 as ordered, per Dr. Rousseau. Report given to ASHER Menjivar. Belongings and medication list given to receiving RN. Family and or S/O informed of transfer.
--- NOTE | 2019-05-31 14:36 | NUR ---
HAND-OFF: Report given to ASHER Wan,patient pale,blood transfusion infusing,new order transfer to ICU,sitting up,transferred to ICU with respiratory therapist,Ghada,ASHER Mckee and ASHER Youssef Addendum: 05/31/19 at 1442 by Onel GUERRA RN has difficulty communication on BIPAP,uncomfortable with BIPAP
--- NOTE | 2019-05-31 14:36 | NUR ---
NURSE NOTES: Pt received from Tiara Kilgore RN without cardiopulmonary distress noted. Pt is asleep in bed and arousable to name, opens eyes spontaneously, pupils are both 3mm and reactive to light. Pt is unable to follow commands- Per ASHER Menjivar, pt was given multiple pain medication in ER that made her drowsy. Pt is SR hooked to monitor tech with 70 bpm HR, pt noted pale and cool to touch to feet. Pt currently on bipap 15/5 FiO2 100% spO2 100%. Lung sounds noted diminished to bilateral lower lobes and left upper lobe. Right upper lobe noted with rhonchi. Pt is currently NPO with hyperactive bowel sounds all quadrants. Abd is noted round and soft, non-tender. Pt is noted incontinent and voids in hilario pad. Pt has a RH 20g IV running PRBCs at 125 cc/hr. No signs of transfusion rxn, VS noted stable and recorded. Bed in lowest position, alarm on, side rails up x 3 - padded per seizure precaution, call light within reach. Will continue to monitor.
[2019-05-31] MEDS: NovoLOG Insulin Flexpen SUBQ SCH ×2 (16:30→21:00)
[2019-05-31] MEDS: Pantoprazole 80 MG in NS 250 ML IV SCH (16:48)
--- NOTE | 2019-05-31 17:16 | NUR ---
RESPIRATORY NOTES: Patient taken off BIPAP placed on NC 3LPM 32% FIO2.
--- NOTE | 2019-05-31 17:30 | NUR ---
NURSE NOTES: Pt cleaned and placed on purewick. Pt repositioned, no acute distress noted. Will continue to monitor.
--- NOTE | 2019-05-31 17:53 | NUR ---
NURSE NOTES: Pt now AAOx3, swabbed for MRSA, VRE and CRE. Wound care performed. on 3L NC spO2 98-100%. No acute distress. Will continue to monitor.
[2019-05-31] MEDS ORDERED: CRESTOR40 MG ORAL (18:14)
[2019-05-31] MEDS ORDERED: PROTONIX40 MG ORAL (18:14)
[2019-05-31] MEDS ORDERED: NORVASC10 MG ORAL (18:14)
[2019-05-31] MEDS ORDERED: BUTALB-ACETAMI1 EAC1 PO (18:14)
[2019-05-31] MEDS ORDERED: CARVEDILOL25 MG ORAL (18:14)
[2019-05-31] MEDS ORDERED: MAGNESIUM400 M1 PO (18:14)
[2019-05-31] MEDS ORDERED: SENSIPAR30 MG ORAL (18:14)
[2019-05-31] MEDS ORDERED: NITRO0.4 SL (18:14)
[2019-05-31] MEDS ORDERED: BENZONATATE200 MG ORAL (18:14)
[2019-05-31] MEDS ORDERED: GABAPENTIN300 MG ORAL (18:14)
[2019-05-31] MEDS ORDERED: TRAMADOL HCL50 MG ORAL (18:14)
[2019-05-31] MEDS ORDERED: PREDNISOLO15 MG/5 M1 ORAL (18:14)
[2019-05-31] MEDS ORDERED: AVAPRO150 MG ORAL (18:14)
[2019-05-31] MEDS ORDERED: LIDODERM700 M1 TOPIC (18:14)
[2019-05-31] MEDS ORDERED: MYCOPHENOLATE500 MG PO (18:14)
[2019-05-31] MEDS ORDERED: TRADJENTA5 MG PO (18:14)
[2019-05-31] MEDS ORDERED: BUSPIRONE HCL10 M1 ORAL (18:14)
[2019-05-31] MEDS ORDERED: TORSEMIDE20 MG ORAL (18:14)
[2019-05-31] MEDS ORDERED: NATEGLINIDE120 MG PO (18:14)
[2019-05-31] MEDS ORDERED: POTASSIUM CHLO20 ME1 ORAL (18:14)
[2019-05-31] MEDS ORDERED: GLIPIZIDE5 MG ORAL (18:14)
[2019-05-31] MEDS ORDERED: TACROLIMUS0.5 G1 MC (18:14)
--- NOTE | 2019-05-31 18:33 | NUR ---
NURSE NOTES: Left message for Dr Gaffney regarding EGD procedure consent, I let him know that pt's son Fracisco would like to speak to him for questions regarding EGD.
--- NOTE | 2019-05-31 18:50 | NUR ---
NURSE NOTES: Left message for Dr. Zambrano requesting call back to review pt's home meds. (Home med list obtained from pt's son Fracisco). Also requested orders for repeat CBC and BMP, DVT prophylaxis, and MD consults. Awaiting call back.
--- NOTE | 2019-05-31 19:30 | NUR ---
NURSE NOTES: Received pt in no apparent distress. Awake, alert, orientedx4 but currently complaining of pain on left leg. Pt irritable and wants some pain relief claiming the pain is really bothering her, and grades it at 7/10. Pt looked pale, afebrile and NSR on the monitor. Pt has a PIV on right hand g20 and Protonix gtt infusing at 8mg/h. No bleeding noted; denies nausea and vomiting, denies abdominal pain, denies SOB. On 3l NC and saturating 100% Voiding via purewick. Dr Landa called and updated on pt's status, reviewed home meds and received orders to transfuse one unit of PRBC and to give Lasix 20 mg after; repeat CBC after transfusion and transfuse another 1 unit if Hgb is less than 7. Also stat BNP ordered. Will continue to monitor for signs of bleeding.
--- NOTE | 2019-05-31 19:30 | NUR ---
NURSE NOTES: Received orders from Dr. Cordell Cox over phone who is covering for Dr. Kenya sagastume. Orders placed.
[2019-05-31] MEDS ORDERED: traMADol 50mg tab ORAL PRN ×2 (19:45→21:45)
--- NOTE | 2019-05-31 19:47 | NUR ---
HAND-OFF: Report given to ASHER Oates. Pt remains in unchanged condition, mentation improved since admission, pt is AAOx3 at this time in no acute distress on 3L NC spO2 100%.
--- NOTE | 2019-05-31 19:53 | NUR ---
NURSE NOTES: Dilaudid 1 mg IVP given for leg pain. Inserted another IV site on right AC using g 20 angiocath.
[2019-05-31 20:00] LABS: HEMATOCRIT 17.6 % (37.0-47.0); MEAN CORPUSCULAR VOLUME 89 FL (80-99); PLATELET COUNT 167 K/UL (150-450); RED BLOOD COUNT 1.97 M/UL (4.20-5.40); WHITE BLOOD COUNT 10.5 K/UL (4.8-10.8)
[2019-05-31 20:04] LABS: HEMOGLOBIN 5.7 G/DL (12.0-16.0)
[2019-05-31 20:06] LABS: BASOPHILS % (AUTO) 0.5 % (0.0-2.0); EOSINOPHILS % (AUTO) 1.2 % (0.0-3.0); LYMPHOCYTES % (AUTO) 10.2 % (20.0-45.0); MONOCYTES % (AUTO) 6.7 % (1.0-10.0); NEUTROPHILS % (AUTO) 81.4 % (45.0-75.0)
[2019-05-31 20:10] LABS: ANION GAP 12 mmol/L (5-15); BLOOD UREA NITROGEN 68 mg/dL (7-18); CALCIUM 8.8 MG/DL (8.5-10.1); CARBON DIOXIDE 18 MMOL/L (21-32); CHLORIDE 108 MMOL/L (98-107); CREATININE 0.9 MG/DL (0.55-1.30); POTASSIUM 4.5 MMOL/L (3.5-5.1); SODIUM 138 MMOL/L (136-145)
[2019-05-31] MEDS ORDERED: TACROLIMUS1 MG PO (20:13)
[2019-05-31] MEDS ORDERED: Miralax 17gm pkt ORAL PRN (21:00)
--- NOTE | 2019-05-31 21:00 | NUR ---
NURSE NOTES: 1 unit PRBC started on right AC IV; pre tx VSS. Pt sleeps on and off and still c/o pain on left leg. Tramadol given po.
--- NOTE | 2019-05-31 23:30 | NUR ---
NURSE NOTES: Called Dr Landa and informed him of the BNP result. Ordered to give Lasix 40mg IVP now and to cancel the 20mg he ordered earlier. Dose given
[2019-06-01] VITALS (17 sets, daily range): BP systolic 85–139; BP diastolic 24–116
--- NOTE | 2019-06-01 | Consultation ---
DATE OF CONSULTATION: 05/31/2019 GASTROENTEROLOGY CONSULTATION CHIEF COMPLAINT: Anemia and gastrointestinal bleeding. HISTORY OF PRESENT ILLNESS: The patient is a poor historian and currently on Venti mask and a dose of Dilaudid, so she is not a good historian. Most of the history is obtained from the chart from the recent discharge summary from [facility]. This is a 69-year-old female with numerous medical problems, which I will dictate in the second, apparently had an endoscopy and colonoscopy in January 2019 at [facility]. Endoscopy showed evidence of white nummular lesion in the esophagus, some amount of blood was seen in the stomach, but the source was not completely . Then, she had a colonoscopy, which showed evidence of diverticulosis in the left colon and hemorrhoids. The patient was admitted to the hospital for complaint of leg pain, was found to have a hemoglobin in very low ranges and GI consult was requested for possible evaluation for GI bleed. PAST MEDICAL HISTORY: 1. History of diastolic heart failure. 2. Aortic stenosis. 3. CHF. 4. CMV. 5. Coronary artery disease. 6. Diabetes. 7. DVT. 8. Gout. 9. Renal disease. 10. History of cholecystectomy. 11. Hyperlipidemia. 12. Hypertension. 13. Migraine headaches. 14. Paroxysmal atrial fibrillation. 15. PE. 16. Seizure disorder. 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 18. CVA. 19. Subdural hematoma. 20. Thyroid nodule. 21. Gastritis. 22. Diverticulosis. PAST SURGICAL HISTORY: As above. ALLERGIES: NSAIDs, metformin, sumatriptan. MEDICATIONS: Please see medication reconciliation list. SOCIAL HISTORY: The patient has no recent history of tobacco, alcohol, or IV drug use. FAMILY HISTORY: Noncontributory. REVIEW OF SYSTEMS: Limited. PHYSICAL EXAMINATION: GENERAL: Currently, in mild respiratory distress, on oxygen non-rebreather mask. VITAL SIGNS: Temperature 98, pulse 82, respirations 14, and blood pressure 101/47. HEENT: Normocephalic and atraumatic. Sclerae pale. NECK: Supple. No evidence of obvious lymphadenopathy. CARDIOVASCULAR: Tachy. Regular rate. Plus S1. Soft murmur in the left sternal border. LUNGS: Decreased breath sounds bilaterally diffusely on the supine exam. ABDOMEN: Soft and nontender. No rebound. No guarding. No peritoneal sign. EXTREMITIES: No cyanosis, no clubbing, no edema. LABORATORY AND DIAGNOSTIC DATA: White count is 11.7, hemoglobin 4.9, hematocrit 14, and platelet count is 206,000. Chem-7, sodium , potassium 4.1, BUN is 68, and creatinine is 1.0. ASSESSMENT AND PLANS: This is a 69-year-old female with profound anemia with hemoglobin of 4.9. BUN and creatinine ratio of 68 suggestive of possible upper GI bleeding. PLAN: The patient is NPO except for mild Protonix drip. The patient has received 2 units of blood transfusion to keep hemoglobin above 7. Given cardiac issues, we also make going to above 8. Plan to do an endoscopy once the patient is more stable most probably tomorrow. I want to thank, Dr. Zambrano, for this kind referral. Anuj Gaffney M.D. DR: NILDA JOB#: [id number] CC: Cristian Zambrano M.D.
--- NOTE | 2019-06-01 01:00 | NUR ---
NURSE NOTES: Pt irritable and complaining that she is constantly wet with urine. Cleaned and underpad changed.
[2019-06-01 01:31] LABS: MEAN CORPUSCULAR VOLUME 86 FL (80-99); PLATELET COUNT 160 K/UL (150-450); RED BLOOD COUNT 2.31 M/UL (4.20-5.40); RED CELL DISTRIBUTION WIDTH 15.2 % (11.6-14.8); WHITE BLOOD COUNT 10.2 K/UL (4.8-10.8)
[2019-06-01 01:37] LABS: HEMOGLOBIN 6.9 G/DL (12.0-16.0)
--- NOTE | 2019-06-01 02:00 | NUR ---
NURSE NOTES: Pt getting angry and irritable complaining she is constantly wet and refuses to use the purewick device. Pt wanted a franco cath inserted so she can rest and sleep. Complains that her left leg hurts a lot if she moves constantly. Order obtained for franco cath insertion; inserted a Fr 16. Dilaudid 2 mg IVP given
--- NOTE | 2019-06-01 02:15 | NUR ---
NURSE NOTES: 2nd unit of PRBC started for Hgb 6.9. No signs of bleeding noted. Will continue to monitor
[2019-06-01] MEDS: Pantoprazole 80 MG in NS 250 ML IV SCH (02:56)
--- NOTE | 2019-06-01 04:00 | NUR ---
NURSE NOTES: Blood transfusion in progress. No untoward reaction noted. IV site intact. VSS. AM care rendered. FC patent. Currently denies pain, denies SOB
--- NOTE | 2019-06-01 05:50 | NUR ---
NURSE NOTES: Transfusion completed without any incident. VSS, Pt asleep
[2019-06-01] MEDS: NovoLOG Insulin Flexpen SUBQ SCH ×4 (06:17→20:20)
[2019-06-01 07:01] LABS: BASOPHILS % (AUTO) 0.7 % (0.0-2.0); EOSINOPHILS % (AUTO) 1.1 % (0.0-3.0); HEMATOCRIT 23.8 % (37.0-47.0); HEMOGLOBIN 8.2 G/DL (12.0-16.0); LYMPHOCYTES % (AUTO) 10.5 % (20.0-45.0); MEAN CORPUSCULAR VOLUME 87 FL (80-99); MONOCYTES % (AUTO) 5.5 % (1.0-10.0); NEUTROPHILS % (AUTO) 82.2 % (45.0-75.0); PLATELET COUNT 128 K/UL (150-450); RED BLOOD COUNT 2.72 M/UL (4.20-5.40); RED CELL DISTRIBUTION WIDTH 14.9 % (11.6-14.8); WHITE BLOOD COUNT 11.8 K/UL (4.8-10.8)
--- NOTE | 2019-06-01 07:05 | NUR ---
RESPIRATORY NOTE: received pt off bipap, on 3L NC. no redness or skin wounds around facial area. pt in no apparent resp distress at this time. will cont to monitor.
[2019-06-01 07:12] LABS: ALANINE AMINOTRANSFERASE 14 U/L (12-78); ALBUMIN 2.7 G/DL (3.4-5.0); ALBUMIN/GLOBULIN RATIO 0.9 (1.0-2.7); ALKALINE PHOSPHATASE 66 U/L (46-116); ASPARTATE AMINO TRANSFERASE 19 U/L (15-37); BILIRUBIN,TOTAL 1.6 MG/DL (0.2-1.0); BLOOD UREA NITROGEN 75 mg/dL (7-18); CALCIUM 8.2 MG/DL (8.5-10.1); CHLORIDE 108 MMOL/L (98-107); CREATININE 1.6 MG/DL (0.55-1.30); SODIUM 137 MMOL/L (136-145)
[2019-06-01 07:13] LABS: BILIRUBIN,DIRECT 0.3 MG/DL (0.0-0.3)
--- NOTE | 2019-06-01 07:13 | NUR ---
HAND-OFF: Report given to Elva STERLING.
--- NOTE | 2019-06-01 07:20 | NUR ---
NURSE NOTES: Received bedside report from Иван STERLING. Pt. in bed, awake, a/o x 4. No sign of distress. On O2 at 2LPM via NC. Denies pain at present. NPO at present for possible EGD today. IV at right hand #20g. in placed and right AC #20g in placed patent/intact running Protonix drip with rate of 8cc/hr. Bed in low position, locked. Call light within reach. Will cont. to monitor.
[2019-06-01 07:38] LABS: CARBON DIOXIDE 16 MMOL/L (21-32)
--- NOTE | 2019-06-01 08:16 | NUR ---
NURSE NOTES: Pt. refused to sign consent for EGD procedure this a.m. Called Dr. Gaffney and told RN he coming to talk to the pt.
--- NOTE | 2019-06-01 08:24 | Pre-Procedure Note/Attestation ---
Pre-Procedure Note/Attestation Complete Prior to Procedure Planned Procedure: not applicable Procedure Narrative: egd Indications for Procedure Pre-Operative Diagnosis: GIB Attestation I attest that I discussed the nature of the procedure; its benefits; risks and complications; and alternatives (and the risks and benefits of such alternatives ), prior to the procedure, with the patient (or the patient's legal field marketing representative). I attest that, if there was a reasonable possibility of needing a blood transfusion, the patient (or the patient's legal field marketing representative) was given the [facility] standardized written summary, pursuant to the [employer] Blood Safety Act ([place] Health and Safety Code # 1645, as amended). I attest that I re-evaluated the patient just prior to the surgery and that there has been no change in the patient's H&P, except as documented below: Anuj Gaffney MD Jun 01, 2019 08:24
--- NOTE | 2019-06-01 08:26 | General Progress Note ---
Assessment/Plan Problem List: (1) GI bleed ICD Codes: K92.2 - Gastrointestinal hemorrhage, unspecified SNOMED: 24613047 (2) Pneumonia ICD Codes: J18.9 - Pneumonia, unspecified organism SNOMED: 045945546 (3) Upper respiratory symptom ICD Codes: R09.89 - Other specified symptoms and signs involving the circulatory and respiratory systems SNOMED: 086853561 (4) Contusion ICD Codes: T14.8 - Other injury of unspecified body region SNOMED: 405218683 Status: stable Assessment/Plan: s/p blood transfusion protonix pending EGd for today Subjective ROS Limited/Unobtainable: Yes Allergies: Coded Allergies: No Known Allergies (Unverified , 06/26/17) Objective Last 24 Hour Vital Signs Date Time Temp Pulse Resp B/P (MAP) Pulse Ox O2 Delivery O2 Flow Rate FiO2 06/01/19 07:04 77 20 95 06/01/19 07:00 98.6 72 11 103/43 (63) 98 06/01/19 06:10 73 11 94/71 (79) 06/01/19 06:00 73 11 94/71 (79) 98 06/01/19 05:00 12 92/32 (52) 99 06/01/19 04:00 Nasal Cannula 3.0 Nasal Cannula 3.0 Nasal Cannula 3.0 06/01/19 04:00 97.8 74 9 90/40 (57) 100 06/01/19 04:00 75 06/01/19 03:00 76 9 98/40 (59) 93 06/01/19 02:00 82 18 94/54 (67) 100 06/01/19 01:00 73 14 97/24 (48) 100 06/01/19 00:00 Nasal Cannula 3.0 Nasal Cannula 3.0 Nasal Cannula 3.0 06/01/19 00:00 97.7 76 15 94/25 (48) 100 05/31/19 23:00 71 20 93/61 (72) 100 05/31/19 22:00 79 17 92/45 (61) 100 05/31/19 21:00 74 12 94/33 (53) 100 05/31/19 20:00 96.5 76 19 104/37 (59) 99 05/31/19 20:00 Nasal Cannula 3.0 Nasal Cannula 3.0 Nasal Cannula 3.0 05/31/19 20:00 76 05/31/19 19:00 76 28 103/39 (60) 100 05/31/19 18:30 76 24 105/39 (61) 100 05/31/19 18:00 71 13 88/34 (52) 100 05/31/19 17:54 Nasal Cannula 3.0 Nasal Cannula 3.0 Nasal Cannula 3.0 05/31/19 17:16 3.0 05/31/19 17:00 97.5 69 15 104/41 (62) 100 05/31/19 16:00 71 05/31/19 16:00 Bi-pap Bi-pap Bi-pap 05/31/19 16:00 69 15 98/40 (59) 100 05/31/19 15:45 45 05/31/19 15:00 100 05/31/19 15:00 70 05/31/19 15:00 69 15 99/38 (58) 100 05/31/19 15:00 Bi-pap Bi-pap Bi-pap 05/31/19 14:36 97.8 73 15 110/41 (64) 100 05/31/19 14:32 102 24 99 Bi-Pap 100 05/31/19 14:31 114 24 99 Facial 100 05/31/19 14:00 98.0 84 18 102/84 100 Simple Mask 10.0 05/31/19 13:15 98.0 85 16 101/81 100 Simple Mask 10.0 05/31/19 11:00 98.0 82 14 101/47 100 Simple Mask 10.0 05/31/19 09:50 98.0 05/31/19 08:39 98.1 99 20 119/59 (79) 94 Room Air Intake and Output 05/31/19 06/01/19 19:00 07:00 Intake Total 545 ml 1235 ml Output Total 160 ml Balance 545 ml 1075 ml Intake Oral 240 ml 360 ml IV Total 55 ml 275 ml Blood Product 250 ml 600 ml Output Urine Total 160 ml # Voids 1 Laboratory Tests 05/31/19 09:15: White Blood Count 11.7H, Red Blood Count 1.73L, Hemoglobin 4.9*L, Hematocrit 14.8L, Mean Corpuscular Volume 86, Mean Corpuscular Hemoglobin 28.2, Mean Corpuscular Hemoglobin Concent 33.0, Red Cell Distribution Width 18.2H, Platelet Count 206, Mean Platelet Volume 5.8L, Neutrophils (%) (Auto) , Lymphocytes (%) (Auto) , Monocytes (%) (Auto) , Eosinophils (%) (Auto) , Basophils (%) (Auto) , Differential Total Cells Counted 100, Neutrophils % ( Manual) 78H, Lymphocytes % (Manual) 17L, Monocytes % (Manual) 4, Eosinophils % ( Manual) 1, Basophils % (Manual) 0, Band Neutrophils 0, Platelet Estimate Adequate, Platelet Morphology Normal, Polychromasia 1+, Hypochromasia 1+, Anisocytosis 2+, Sodium Level 138, Potassium Level 4.1, Chloride Level 108H, Carbon Dioxide Level 21, Anion Gap 9, Blood Urea Nitrogen 68H, Creatinine 1.0, Estimat Glomerular Filtration Rate , Glucose Level 153H, Calcium Level 8.7, Troponin I 0.029 05/31/19 09:50: Prothrombin Time 13.0H, Prothromb Time International Ratio 1.2H, Activated Partial Thromboplast Time 26 05/31/19 12:37: Arterial Blood pH 7.295L, Arterial Blood Partial Pressure CO2 45.0, Arterial Blood Partial Pressure O2 147.8H, Arterial Blood HCO3 21.4L, Arterial Blood Oxygen Saturation 97.7, Arterial Blood Base Excess -4.6L, Rodolfo Test Positive 05/31/19 19:45: White Blood Count 10.5, Red Blood Count 1.97L, Hemoglobin 5.7*L, Hematocrit 17.6L, Mean Corpuscular Volume 89, Mean Corpuscular Hemoglobin 29.1, Mean Corpuscular Hemoglobin Concent 32.6, Red Cell Distribution Width 15.0H, Platelet Count 167, Mean Platelet Volume 6.5, Neutrophils (%) (Auto) 81.4H, Lymphocytes (%) (Auto) 10.2L, Monocytes (%) (Auto) 6.7, Eosinophils (%) (Auto) 1.2, Basophils (%) (Auto) 0.5, Sodium Level 138, Potassium Level 4.5, Chloride Level 108H, Carbon Dioxide Level 18L, Anion Gap 12, Blood Urea Nitrogen 68H, Creatinine 0.9, Estimat Glomerular Filtration Rate , Glucose Level 125H, Calcium Level 8.8, Pro-B-Type Natriuretic Peptide 5831H 06/01/19 01:23: White Blood Count 10.2, Red Blood Count 2.31L, Hemoglobin 6.9*L, Hematocrit 20.0L, Mean Corpuscular Volume 86, Mean Corpuscular Hemoglobin 29.8, Mean Corpuscular Hemoglobin Concent 34.5, Red Cell Distribution Width 15.2H, Platelet Count 160, Mean Platelet Volume 6.6, Neutrophils (%) (Auto) , Lymphocytes (%) (Auto) , Monocytes (%) (Auto) , Eosinophils (%) (Auto) , Basophils (%) (Auto) , Differential Total Cells Counted 100, Neutrophils % ( Manual) 77H, Lymphocytes % (Manual) 14L, Monocytes % (Manual) 8, Eosinophils % ( Manual) 1, Basophils % (Manual) 0, Band Neutrophils 0, Platelet Estimate Adequate, Platelet Morphology Normal 06/01/19 06:20: White Blood Count 11.8H, Red Blood Count 2.72L, Hemoglobin 8.2L, Hematocrit 23.8L, Mean Corpuscular Volume 87, Mean Corpuscular Hemoglobin 30.0, Mean Corpuscular Hemoglobin Concent 34.4, Red Cell Distribution Width 14.9H, Platelet Count 128L, Mean Platelet Volume 5.8L, Neutrophils (%) (Auto) 82.2H, Lymphocytes (%) (Auto) 10.5L, Monocytes (%) (Auto) 5.5, Eosinophils (%) (Auto) 1.1, Basophils (%) (Auto) 0.7, Sodium Level 137, Potassium Level 5.0, Chloride Level 108H, Carbon Dioxide Level 16L, Blood Urea Nitrogen 75H, Creatinine 1.6#H , Estimat Glomerular Filtration Rate , Glucose Level 143H, Calcium Level 8.2L, Total Bilirubin 1.6H, Direct Bilirubin 0.3, Aspartate Amino Transf (AST/SGOT) 19 , Alanine Aminotransferase (ALT/SGPT) 14, Alkaline Phosphatase 66, Total Protein 5.6L, Albumin 2.7L, Globulin 2.9, Albumin/Globulin Ratio 0.9L Height (Feet): 5 Height (Inches): 2.00 Weight (Pounds): 178 General Appearance: alert EENT: normal ENT inspection Neck: supple Cardiovascular: normal rate Respiratory/Chest: decreased breath sounds Abdomen: normal bowel sounds, non tender, soft Extremities: non-tender Anuj Gaffney MD Jun 01, 2019 08:26
[2019-06-01] MEDS ORDERED: Ketamine 500mg/10ml vial ONE (08:56)
[2019-06-01] MEDS ORDERED: LR 1000ml ONE (09:00)
[2019-06-01] MEDS ORDERED: Lidocaine 1% MPF 10mg/ml 5ml ONE (09:00)
[2019-06-01] MEDS ORDERED: Propofol 200mg/20ml IV ONE (09:00)
[2019-06-01] MEDS ORDERED: Mycophenolate 250mg cap ORAL SCH (09:00)
--- NOTE | 2019-06-01 09:00 | NUR ---
NURSE NOTES: EGD procedure on going at bedside with Dr. Gaffney and Dr. Gillespie.
--- NOTE | 2019-06-01 09:06 | Endoscopy Procedure Note ---
Endoscopy Procedure Note General Indication for Procedure: gib Operative Findings/Diagnosis: gastritis Specimen: yes Pt Tolerated Procedure Well: Yes Estimated Blood Loss: none Anesthesia Anesthesiologist: patti Anesthesia: MAC Inserted Devices Implant(s) used?: No GI Core Measures 50 yrs or older w/o bx or poly: Not Applicable 10yrs. F/U recommended: Not Applicable Anuj Gaffney MD Jun 01, 2019 09:06
--- NOTE | 2019-06-01 09:10 | Anethesia Preoperative Eval ---
Anesthesia Pre-op PMH/ROS General Date of Evaluation: Jun 01, 2019 Time of Evaluation: 08:54 Anesthesiologist: Jose Miguel ASA Score: ASA 4 - Emergency Mallampati Score Class I : Soft palate, uvula, fauces, pillars visible Class II: Soft palate, uvula, fauces visible Class III: Soft palate, base of uvula visible Class IV: Only hard plate visible Mallampati Classification: Class III Surgeon: Yeimy Diagnosis: GI Bleed Surgical Procedure: EGD Anesthesia History: none Family History: no anesthesia problems Allergies: Coded Allergies: No Known Allergies (Unverified , 06/26/17) Medications: see eMAR Patient NPO?: Yes Past Medical History Cardiovascular: Reports: HTN, other - CHF, Cardiomyopathy Gastrointestinal/Genitourinary: Reports: GERD, ESRD - Dialysis Neurologic/Psychiatric: Reports: CVA - Seizures Endocrine: Reports: DM Hematology/Immune: Reports: anemia, other - Squamous Cell CA Other: obesity - BMI 34 Anesthesia Pre-op Phys. Exam Physician Exam Last Vital Signs Date Time Temp Pulse Resp B/P (MAP) Pulse Ox O2 Delivery O2 Flow Rate FiO2 06/01/19 08:00 79 12 86/27 (46) 100 06/01/19 07:00 98.6 06/01/19 04:00 Nasal Cannula 3.0 Nasal Cannula 3.0 Nasal Cannula 3.0 05/31/19 15:45 45 Constitutional: NAD Neurologic: CN 2-12 intact Cardiovascular: RRR Respiratory: CTA Gastrointestinal: S/NT/ND Airway Exam Mallampati Score: Class III MO: limited ROM: limited Teeth: missing, intact Anesthesia Pre-op A/P Labs Hematology Test 05/31/19 09:15 05/31/19 19:45 06/01/19 01:23 06/01/19 06:20 White Blood Count 11.7 K/UL (4.8-10.8) H 10.5 K/UL (4.8-10.8) 10.2 K/UL (4.8-10.8) 11.8 K/UL (4.8-10.8) H Red Blood Count 1.73 M/UL (4.20-5.40) L 1.97 M/UL (4.20-5.40) L 2.31 M/UL (4.20-5.40) L 2.72 M/UL (4.20-5.40) L Hemoglobin 4.9 G/DL (12.0-16.0) *L 5.7 G/DL (12.0-16.0) *L 6.9 G/DL (12.0-16.0) *L 8.2 G/DL (12.0-16.0) L Hematocrit 14.8 % (37.0-47.0) L 17.6 % (37.0-47.0) L 20.0 % (37.0-47.0) L 23.8 % (37.0-47.0) L Mean Corpuscular Volume 86 FL (80-99) 89 FL (80-99) 86 FL (80-99) 87 FL ( 80-99) Mean Corpuscular Hemoglobin 28.2 PG (27.0-31.0) 29.1 PG (27.0-31.0) 29.8 PG (27.0-31.0) 30.0 PG (27.0-31.0) Mean Corpuscular Hemoglobin Concent 33.0 G/DL (32.0-36.0) 32.6 G/DL (32.0-36.0) 34.5 G/DL (32.0-36.0) 34.4 G/DL (32.0-36.0) Red Cell Distribution Width 18.2 % (11.6-14.8) H 15.0 % (11.6-14.8) H 15.2 % (11.6-14.8) H 14.9 % (11.6-14.8) H Platelet Count 206 K/UL (150-450) 167 K/UL (150-450) 160 K/UL (150-450) 128 K/UL (150-450) L Mean Platelet Volume 5.8 FL (6.5-10.1) L 6.5 FL (6.5-10.1) 6.6 FL (6.5-10.1) 5.8 FL (6.5-10.1) L Neutrophils (%) (Auto) % (45.0-75.0) 81.4 % (45.0-75.0) H % (45.0-75.0) 82.2 % (45.0-75.0) H Lymphocytes (%) (Auto) % (20.0-45.0) 10.2 % (20.0-45.0) L % (20.0-45.0) 10.5 % (20.0-45.0) L Monocytes (%) (Auto) % (1.0-10.0) 6.7 % (1.0-10.0) % (1.0-10.0) 5.5 % (1.0-10.0) Eosinophils (%) (Auto) % (0.0-3.0) 1.2 % (0.0-3.0) % (0.0-3.0) 1.1 % (0.0-3.0) Basophils (%) (Auto) % (0.0-2.0) 0.5 % (0.0-2.0) % (0.0-2.0) 0.7 % (0.0-2.0) Differential Total Cells Counted 100 100 Neutrophils % (Manual) 78 % (45-75) H 77 % (45-75) H Lymphocytes % (Manual) 17 % (20-45) L 14 % (20-45) L Monocytes % (Manual) 4 % (1-10) 8 % (1-10) Eosinophils % (Manual) 1 % (0-3) 1 % (0-3) Basophils % (Manual) 0 % (0-2) 0 % (0-2) Band Neutrophils 0 % (0-8) 0 % (0-8) Platelet Estimate Adequate Adequate Platelet Morphology Normal Normal Polychromasia 1+ Hypochromasia 1+ Anisocytosis 2+ Coagulation Test 05/31/19 09:50 Prothrombin Time 13.0 SEC (9.30-11.50) H Prothromb Time International Ratio 1.2 (0.9-1.1) H Activated Partial Thromboplast Time 26 SEC (23-33) Chemistry Test 05/31/19 09:15 05/31/19 19:45 06/01/19 06:20 Sodium Level 138 MMOL/L (136-145) 138 MMOL/L (136-145) 137 MMOL/L (136-145) Potassium Level 4.1 MMOL/L (3.5-5.1) 4.5 MMOL/L (3.5-5.1) 5.0 MMOL/L (3.5-5.1) Chloride Level 108 MMOL/L (98-107) H 108 MMOL/L (98-107) H 108 MMOL/L (98-107) H Carbon Dioxide Level 21 MMOL/L (21-32) 18 MMOL/L (21-32) L 16 MMOL/L (21-32) L Anion Gap 9 mmol/L (5-15) 12 mmol/L (5-15) Blood Urea Nitrogen 68 mg/dL (7-18) H 68 mg/dL (7-18) H 75 mg/dL (7-18) H Creatinine 1.0 MG/DL (0.55-1.30) 0.9 MG/DL (0.55-1.30) 1.6 MG/DL (0.55-1.30) #H Estimat Glomerular Filtration Rate mL/min (>60) mL/min (>60) mL/min (>60) Glucose Level 153 MG/DL (74-106) H 125 MG/DL (74-106) H 143 MG/DL (74-106) H Calcium Level 8.7 MG/DL (8.5-10.1) 8.8 MG/DL (8.5-10.1) 8.2 MG/DL (8.5-10.1) L Troponin I 0.029 ng/mL (0.000-0.056) Pro-B-Type Natriuretic Peptide 5831 pg/mL (0-125) H Total Bilirubin 1.6 MG/DL (0.2-1.0) H Direct Bilirubin 0.3 MG/DL (0.0-0.3) Aspartate Amino Transf (AST/SGOT) 19 U/L (15-37) Alanine Aminotransferase (ALT/SGPT) 14 U/L (12-78) Alkaline Phosphatase 66 U/L (46-116) Total Protein 5.6 G/DL (6.4-8.2) L Albumin 2.7 G/DL (3.4-5.0) L Globulin 2.9 g/dL Albumin/Globulin Ratio 0.9 (1.0-2.7) L Risk Assessment & Plan Assessment: ASA 4E Plan: GA Status Change Before Surgery: Sajan Sherman MD 28, 2019 09:10
--- NOTE | 2019-06-01 09:41 | Immediate Post-Op Evaluation ---
Immediate Post-Op Evalulation Immediate Post-Op Evalulation Procedure: EGD Date of Evaluation: Jun 01, 2019 Time of Evaluation: 09:52 IV Fluids: 25cc NS Blood Products: 0 Estimated Blood Loss: 2 Urinary Output: 0 Blood Pressure Systolic: 91 Blood Pressure Diastolic: 57 Pulse Rate: 83 Respiratory Rate: 18 O2 Sat by Pulse Oximetry: 98 Temperature (Fahrenheit): 98.3 Pain Score (1-10): 1 Nausea: No Vomiting: No Complications 0 Patient Status: awake, reacts, patent, none Hydration Status: adequate Sajan Gillespie MD Jun 01, 2019 09:41
--- NOTE | 2019-06-01 09:42 | 48 Hour Post Anesthesia Eval ---
Post Anesthesia Evaluation Procedure: EGD Date of Evaluation: Jun 01, 2019 Time of Evaluation: 11:56 Blood Pressure Systolic: 89 0: 52 Pulse Rate: 84 Respiratory Rate: 18 Temperature (Fahrenheit): 98.4 O2 Sat by Pulse Oximetry: 97 Airway: patent Nausea: No Vomiting: No Pain Intensity: 1 Hydration Status: adequate Cardiopulmonary Status: Stable Mental Status/LOC: patient returned to baseline Follow-up Care/Observations: 0 Post-Anesthesia Complications: 0 Follow-up care needed: N/A Sajan Gillespie MD Jun 01, 2019 09:42
--- NOTE | 2019-06-01 10:00 | NUR ---
NURSE NOTES: S/P EGD procedure. Pt. tolerated procedure well. Remained stable.
[2019-06-01 11:23] LABS: CHOLESTEROL 91 MG/DL (< 200); FERRITIN 288 NG/ML (8-388); HDL CHOLESTEROL 28 MG/DL (40-60); PHOSPHORUS 4.3 MG/DL (2.5-4.9); TRIGLYCERIDES 321 MG/DL (30-150)
--- NOTE | 2019-06-01 12:00 | NUR ---
NURSE NOTES: Pt. awake keeps on asking for water to drink. Assisted pt. to drink water and she is taking ice chips. Remain stable.
--- NOTE | 2019-06-01 12:00 | Procedure Note ---
DATE OF PROCEDURE: 06/01/2019 SURGEON: Anuj Gaffney M.D. PROCEDURE: Upper endoscopy with biopsy. ANESTHESIA: Per Dr. Sajan Gillespie. INSTRUMENT: Olympus adult flexible upper endoscope. INDICATION: Upper GI bleeding. REASON FOR PROCEDURE: The procedure, risks, benefits, and possible consequences, including hemorrhage, aspiration, perforation and infection, and alternative treatments, were explained to the patient/legal guardian by Dr. Anuj Gaffney and the patient/legal guardian understood and accepted these risks. DESCRIPTION OF PROCEDURE: After informed consent was obtained and the patient was adequately sedated, Olympus upper endoscope was advanced from mouth into the second portion of duodenum and retroflexion was performed in the stomach. The patient has evidence of diffuse gastritis. Random biopsy from antrum was obtained to rule out H. pylori infection. Otherwise, there was no evidence of any active upper GI bleeding source. At this time, the scope was gradually retrieved and procedure was terminated. SUMMARY OF FINDINGS: Gastritis, status post biopsy, otherwise normal upper endoscopic examination. RECOMMENDATIONS: Follow up biopsy results and treat accordingly. We will going to start the patient on clear liquid diet and advance as tolerated. We are going to send the stool for OB. If the stool OB comes back positive, the patient might benefit from colonoscopy for evaluation of GI bleeding. I want to thank, Dr. Rousseau, for this kind referral. Anuj Gaffney M.D. DR: MAURY JOB#: [id number] CC: Oswald Rousseau M.D.; Fax#: [phone]
--- NOTE | 2019-06-01 12:01 | Consultation ---
Consult Note Consult Note asked to eval at the request of Mer Zambrano and Aurea ( Patient's Patient Monitor) Patient admitted via ER yesterday Normal BUN and Cr on admit today Cr up 1.6] ER: Patient presents with complaint of left leg pain Points mainly to the ankle on the lower leg region Did not complain of any knee pain or pelvic pain to me however there was report of possible discomfort from below the knee down to the ankle itself Denies any fall or trauma denies any chest pain or shortness of breath Patient reports that it has been hurting since last night she had a difficult time sleeping and presents for further evaluation On review of medical records there is significant past medical history including renal transplant, CHF, vascular disease No Known Allergies (Unverified , 06/26/17) Past Medical History: No History, Except For Hx Cardiac Problems: Yes - CKD Hx Hypertension: Yes Hx Diabetes: Yes Hx Dialysis: No - kidney transplant examined in ICU Data reviewed . Assessment/Plan Severe Anemia transfused 5 units Acute renal failure s/p Kidney Tx DM Obese Hypotension h/o Obstructive uropathy CAD At fib Carotid Stenosis CVA s/p cholecystectomy Spaulding Fluid challenge monitor renal parameters Keep BP and BS in check Per orders Joaquim Gama MD Jun 01, 2019 12:01
[2019-06-01] MEDS ORDERED: Hydrocortisone 100mg Inj IV SCH (12:15)
[2019-06-01 12:51] LABS: % IRON SATURATION 27 % (15-50); IRON 57 ug/dL (50-175); TOTAL IRON BINDING CAPACITY 208 ug/dL (250-450)
--- NOTE | 2019-06-01 13:00 | NUR ---
NURSE NOTES: Pt. turned and repositioned.
--- NOTE | 2019-06-01 16:29 | Cardiac Electrophysiology PN ---
Subjective Subjective [id number] Objective Last 24 Hour Vital Signs Date Time Temp Pulse Resp B/P (MAP) Pulse Ox O2 Delivery O2 Flow Rate FiO2 06/01/19 14:00 84 29 130/116 (121) 92 06/01/19 13:21 100 Nasal Cannula 3.0 32 06/01/19 13:00 82 28 128/90 (103) 97 06/01/19 12:00 Nasal Cannula 3.0 Nasal Cannula 3.0 Nasal Cannula 3.0 06/01/19 12:00 98.8 76 24 85/66 (72) 100 06/01/19 10:00 81 15 89/32 (51) 99 06/01/19 09:42 84 18 97 06/01/19 09:41 83 18 98 06/01/19 09:00 81 14 91/34 (53) 98 06/01/19 08:00 79 12 86/27 (46) 100 06/01/19 08:00 Nasal Cannula 3.0 Nasal Cannula 3.0 Nasal Cannula 3.0 06/01/19 08:00 76 06/01/19 07:04 77 20 95 06/01/19 07:00 98.6 72 11 103/43 (63) 98 06/01/19 06:10 73 11 94/71 (79) 06/01/19 06:00 73 11 94/71 (79) 98 06/01/19 05:00 12 92/32 (52) 99 06/01/19 04:00 Nasal Cannula 3.0 Nasal Cannula 3.0 Nasal Cannula 3.0 06/01/19 04:00 97.8 74 9 90/40 (57) 100 06/01/19 04:00 75 06/01/19 03:00 76 9 98/40 (59) 93 06/01/19 02:00 82 18 94/54 (67) 100 06/01/19 01:00 73 14 97/24 (48) 100 06/01/19 00:00 Nasal Cannula 3.0 Nasal Cannula 3.0 Nasal Cannula 3.0 06/01/19 00:00 97.7 76 15 94/25 (48) 100 05/31/19 23:00 71 20 93/61 (72) 100 05/31/19 22:00 79 17 92/45 (61) 100 05/31/19 21:00 74 12 94/33 (53) 100 05/31/19 20:00 96.5 76 19 104/37 (59) 99 05/31/19 20:00 Nasal Cannula 3.0 Nasal Cannula 3.0 Nasal Cannula 3.0 05/31/19 20:00 76 05/31/19 19:00 76 28 103/39 (60) 100 05/31/19 18:30 76 24 105/39 (61) 100 05/31/19 18:00 71 13 88/34 (52) 100 05/31/19 17:54 Nasal Cannula 3.0 Nasal Cannula 3.0 Nasal Cannula 3.0 05/31/19 17:16 3.0 05/31/19 17:00 97.5 69 15 104/41 (62) 100 Intake and Output 05/31/19 06/01/19 19:00 07:00 Intake Total 545 ml 1235 ml Output Total 180 ml Balance 545 ml 1055 ml Intake Oral 240 ml 360 ml IV Total 55 ml 275 ml Blood Product 250 ml 600 ml Output Urine Total 180 ml # Voids 1 Laboratory Tests Test 05/31/19 19:45 06/01/19 01:23 06/01/19 06:20 06/01/19 11:45 White Blood Count 10.5 K/UL (4.8-10.8) 10.2 K/UL (4.8-10.8) 11.8 K/UL (4.8-10.8) H Red Blood Count 1.97 M/UL (4.20-5.40) L 2.31 M/UL (4.20-5.40) L 2.72 M/UL (4.20-5.40) L Hemoglobin 5.7 G/DL (12.0-16.0) *L 6.9 G/DL (12.0-16.0) *L 8.2 G/DL (12.0-16.0) L Hematocrit 17.6 % (37.0-47.0) L 20.0 % (37.0-47.0) L 23.8 % (37.0-47.0) L Mean Corpuscular Volume 89 FL (80-99) 86 FL (80-99) 87 FL (80-99) Mean Corpuscular Hemoglobin 29.1 PG (27.0-31.0) 29.8 PG (27.0-31.0) 30.0 PG (27.0-31.0) Mean Corpuscular Hemoglobin Concent 32.6 G/DL (32.0-36.0) 34.5 G/DL (32.0-36.0) 34.4 G/DL (32.0-36.0) Red Cell Distribution Width 15.0 % (11.6-14.8) H 15.2 % (11.6-14.8) H 14.9 % (11.6-14.8) H Platelet Count 167 K/UL (150-450) 160 K/UL (150-450) 128 K/UL (150-450) L Mean Platelet Volume 6.5 FL (6.5-10.1) 6.6 FL (6.5-10.1) 5.8 FL (6.5-10.1) L Neutrophils (%) (Auto) 81.4 % (45.0-75.0) H % (45.0-75.0) 82.2 % (45.0-75.0) H Lymphocytes (%) (Auto) 10.2 % (20.0-45.0) L % (20.0-45.0) 10.5 % (20.0-45.0) L Monocytes (%) (Auto) 6.7 % (1.0-10.0) % (1.0-10.0) 5.5 % (1.0-10.0) Eosinophils (%) (Auto) 1.2 % (0.0-3.0) % (0.0-3.0) 1.1 % (0.0-3.0) Basophils (%) (Auto) 0.5 % (0.0-2.0) % (0.0-2.0) 0.7 % (0.0-2.0) Sodium Level 138 MMOL/L (136-145) 137 MMOL/L (136-145) Potassium Level 4.5 MMOL/L (3.5-5.1) 5.0 MMOL/L (3.5-5.1) Chloride Level 108 MMOL/L (98-107) H 108 MMOL/L (98-107) H Carbon Dioxide Level 18 MMOL/L (21-32) L 16 MMOL/L (21-32) L Anion Gap 12 mmol/L (5-15) Blood Urea Nitrogen 68 mg/dL (7-18) H 75 mg/dL (7-18) H Creatinine 0.9 MG/DL (0.55-1.30) 1.6 MG/DL (0.55-1.30) #H Estimat Glomerular Filtration Rate mL/min (>60) mL/min (>60) Glucose Level 125 MG/DL (74-106) H 143 MG/DL (74-106) H Calcium Level 8.8 MG/DL (8.5-10.1) 8.2 MG/DL (8.5-10.1) L Pro-B-Type Natriuretic Peptide 5831 pg/mL (0-125) H Differential Total Cells Counted 100 Neutrophils % (Manual) 77 % (45-75) H Lymphocytes % (Manual) 14 % (20-45) L Monocytes % (Manual) 8 % (1-10) Eosinophils % (Manual) 1 % (0-3) Basophils % (Manual) 0 % (0-2) Band Neutrophils 0 % (0-8) Platelet Estimate Adequate Platelet Morphology Normal Hemoglobin A1c 5.7 % (4.3-6.0) Phosphorus Level 4.3 MG/DL (2.5-4.9) Magnesium Level 2.2 MG/DL (1.8-2.4) Ferritin 288 NG/ML (8-388) Total Bilirubin 1.6 MG/DL (0.2-1.0) H Direct Bilirubin 0.3 MG/DL (0.0-0.3) Aspartate Amino Transf (AST/SGOT) 19 U/L (15-37) Alanine Aminotransferase (ALT/SGPT) 14 U/L (12-78) Alkaline Phosphatase 66 U/L (46-116) Total Protein 5.6 G/DL (6.4-8.2) L Albumin 2.7 G/DL (3.4-5.0) L Globulin 2.9 g/dL Albumin/Globulin Ratio 0.9 (1.0-2.7) L Triglycerides Level 321 MG/DL (30-150) H Cholesterol Level 91 MG/DL (< 200) LDL Cholesterol 22 mg/dL (<100) HDL Cholesterol 28 MG/DL (40-60) L Cholesterol/HDL Ratio 3.3 (3.3-4.4) Folate 16.2 NG/ML (8.6-58.9) Iron Level 57 ug/dL (50-175) Total Iron Binding Capacity 208 ug/dL (250-450) L Percent Iron Saturation 27 % (15-50) Unsaturated Iron Binding 151 ug/dL (112-346) Vitamin B12 Level 552 PG/ML (193-986) Anderson Reddy MD Jun 01, 2019 16:29
[2019-06-01] MEDS ORDERED: NS 275ml ONE (17:43)
[2019-06-01] MEDS ORDERED: Tubing IV Blood Pump IV ONE (17:43)
[2019-06-01] MEDS ORDERED: Docusate 100mg cap ORAL SCH (18:00)
[2019-06-01] MEDS: Docusate 100mg cap ORAL SCH (18:15)
[2019-06-01] MEDS ORDERED: traMADol 50mg tab ORAL PRN (18:15)
[2019-06-01] MEDS ORDERED: Albuterol/Ipratropium 3ml neb HHN PRN (18:15)
[2019-06-01] MEDS: Mycophenolate 250mg cap ORAL SCH (18:15)
--- NOTE | 2019-06-01 19:17 | General Progress Note ---
Assessment/Plan Problem List: (1) Upper respiratory infection ICD Codes: J06.9 - Acute upper respiratory infection, unspecified SNOMED: 81298520 (2) Leg pain ICD Codes: M79.606 - Pain in leg, unspecified SNOMED: 77881100 (3) Pneumonia ICD Codes: J18.9 - Pneumonia, unspecified organism SNOMED: 998591606 (4) GI bleed ICD Codes: K92.2 - Gastrointestinal hemorrhage, unspecified SNOMED: 03290777 (5) Upper respiratory symptom ICD Codes: R09.89 - Other specified symptoms and signs involving the circulatory and respiratory systems SNOMED: 864193911 Status: stable Assessment/Plan: 69 year old female, with acute GI bleed likely upper. #Acute Encephalopathy. ? Dilaudid induced vs hypoxic #Acute upper GI bleed s/p EGD showing gastris #Left foot base 3rd nad 4th phalanges fracture #CKD secondary to obstructive uropathy status post cadaveric renal transplant x2 on chronic immunosuppression #CAD #atrial fibrillation #hypertension #HFpEF #DM II #carotid stenosis #History of CVA Plan: - f/u egd path, f/u fobt, if positive, consider colo -Transfuse prbc to hgb 8 given cardiac history . PPI bolus 80 mg, then drip -GI consult stat -Check stool for occult blood -Check ABG -Place on bipap - advance diet per gi -Hold home bp medications -Immunosuppression per nephrology consult -Ortho consult once hemodynamically more stable -Pain control -Call family, obtain further information, medication records -PCP: Bishop Villar -code: full code -vte ppx: SCD boots I spent 75 minutes on this patient's case, and 40 mins was dedicated to critical care time of this note may not reflect time of encounter. Subjective Date patient seen: Jun 01, 2019 Allergies: Coded Allergies: No Known Allergies (Unverified , 06/26/17) Subjective patient feels anxious denies bleeding, sob, cp Objective Last 24 Hour Vital Signs Date Time Temp Pulse Resp B/P (MAP) Pulse Ox O2 Delivery O2 Flow Rate FiO2 06/01/19 16:00 Nasal Cannula 3.0 Nasal Cannula 3.0 Nasal Cannula 3.0 06/01/19 16:00 98.9 97 19 139/84 (102) 91 06/01/19 15:37 85 06/01/19 14:00 84 29 130/116 (121) 92 06/01/19 13:21 100 Nasal Cannula 3.0 32 06/01/19 13:00 82 28 128/90 (103) 97 06/01/19 12:00 Nasal Cannula 3.0 Nasal Cannula 3.0 Nasal Cannula 3.0 06/01/19 12:00 98.8 76 24 85/66 (72) 100 06/01/19 11:48 78 06/01/19 10:00 81 15 89/32 (51) 99 06/01/19 09:42 84 18 97 06/01/19 09:41 83 18 98 06/01/19 09:00 81 14 91/34 (53) 98 06/01/19 08:00 79 12 86/27 (46) 100 06/01/19 08:00 Nasal Cannula 3.0 Nasal Cannula 3.0 Nasal Cannula 3.0 06/01/19 08:00 76 06/01/19 07:04 77 20 95 06/01/19 07:00 98.6 72 11 103/43 (63) 98 06/01/19 06:10 73 11 94/71 (79) 06/01/19 06:00 73 11 94/71 (79) 98 06/01/19 05:00 12 92/32 (52) 99 06/01/19 04:00 Nasal Cannula 3.0 Nasal Cannula 3.0 Nasal Cannula 3.0 06/01/19 04:00 97.8 74 9 90/40 (57) 100 06/01/19 04:00 75 06/01/19 03:00 76 9 98/40 (59) 93 06/01/19 02:00 82 18 94/54 (67) 100 06/01/19 01:00 73 14 97/24 (48) 100 06/01/19 00:00 Nasal Cannula 3.0 Nasal Cannula 3.0 Nasal Cannula 3.0 06/01/19 00:00 97.7 76 15 94/25 (48) 100 05/31/19 23:00 71 20 93/61 (72) 100 05/31/19 22:00 79 17 92/45 (61) 100 05/31/19 21:00 74 12 94/33 (53) 100 05/31/19 20:00 96.5 76 19 104/37 (59) 99 05/31/19 20:00 Nasal Cannula 3.0 Nasal Cannula 3.0 Nasal Cannula 3.0 05/31/19 20:00 76 Intake and Output 05/31/19 06/01/19 19:00 07:00 Intake Total 545 ml 1235 ml Output Total 180 ml Balance 545 ml 1055 ml Intake Oral 240 ml 360 ml IV Total 55 ml 275 ml Blood Product 250 ml 600 ml Output Urine Total 180 ml # Voids 1 Laboratory Tests 05/31/19 19:45: White Blood Count 10.5, Red Blood Count 1.97L, Hemoglobin 5.7*L, Hematocrit 17.6L, Mean Corpuscular Volume 89, Mean Corpuscular Hemoglobin 29.1, Mean Corpuscular Hemoglobin Concent 32.6, Red Cell Distribution Width 15.0H, Platelet Count 167, Mean Platelet Volume 6.5, Neutrophils (%) (Auto) 81.4H, Lymphocytes (%) (Auto) 10.2L, Monocytes (%) (Auto) 6.7, Eosinophils (%) (Auto) 1.2, Basophils (%) (Auto) 0.5, Sodium Level 138, Potassium Level 4.5, Chloride Level 108H, Carbon Dioxide Level 18L, Anion Gap 12, Blood Urea Nitrogen 68H, Creatinine 0.9, Estimat Glomerular Filtration Rate , Glucose Level 125H, Calcium Level 8.8, Pro-B-Type Natriuretic Peptide 5831H 06/01/19 01:23: White Blood Count 10.2, Red Blood Count 2.31L, Hemoglobin 6.9*L, Hematocrit 20.0L, Mean Corpuscular Volume 86, Mean Corpuscular Hemoglobin 29.8, Mean Corpuscular Hemoglobin Concent 34.5, Red Cell Distribution Width 15.2H, Platelet Count 160, Mean Platelet Volume 6.6, Neutrophils (%) (Auto) , Lymphocytes (%) (Auto) , Monocytes (%) (Auto) , Eosinophils (%) (Auto) , Basophils (%) (Auto) , Differential Total Cells Counted 100, Neutrophils % ( Manual) 77H, Lymphocytes % (Manual) 14L, Monocytes % (Manual) 8, Eosinophils % ( Manual) 1, Basophils % (Manual) 0, Band Neutrophils 0, Platelet Estimate Adequate, Platelet Morphology Normal 06/01/19 06:20: White Blood Count 11.8H, Red Blood Count 2.72L, Hemoglobin 8.2L, Hematocrit 23.8L, Mean Corpuscular Volume 87, Mean Corpuscular Hemoglobin 30.0, Mean Corpuscular Hemoglobin Concent 34.4, Red Cell Distribution Width 14.9H, Platelet Count 128L, Mean Platelet Volume 5.8L, Neutrophils (%) (Auto) 82.2H, Lymphocytes (%) (Auto) 10.5L, Monocytes (%) (Auto) 5.5, Eosinophils (%) (Auto) 1.1, Basophils (%) (Auto) 0.7, Sodium Level 137, Potassium Level 5.0, Chloride Level 108H, Carbon Dioxide Level 16L, Blood Urea Nitrogen 75H, Creatinine 1.6#H , Estimat Glomerular Filtration Rate , Glucose Level 143H, Calcium Level 8.2L, Hemoglobin A1c 5.7, Phosphorus Level 4.3, Magnesium Level 2.2, Ferritin 288, Total Bilirubin 1.6H, Direct Bilirubin 0.3, Aspartate Amino Transf (AST/SGOT) 19 , Alanine Aminotransferase (ALT/SGPT) 14, Alkaline Phosphatase 66, Total Protein 5.6L, Albumin 2.7L, Globulin 2.9, Albumin/Globulin Ratio 0.9L, Triglycerides Level 321H, Cholesterol Level 91, LDL Cholesterol 22, HDL Cholesterol 28L, Cholesterol/HDL Ratio 3.3, Folate 16.2 06/01/19 11:45: Iron Level 57, Total Iron Binding Capacity 208L, Percent Iron Saturation 27, Unsaturated Iron Binding 151, Vitamin B12 Level 552 Height (Feet): 5 Height (Inches): 2.00 Weight (Pounds): 178 General Appearance: mild distress, obese, alert oriented x3 Neck: non-tender, normal alignment, supple Cardiovascular: normal rate, regular rhythm, regularly irregular Respiratory/Chest: lungs clear, normal breath sounds, no respiratory distress Abdomen: non tender, soft, no organomegaly Extremities: normal range of motion, non-tender Edema: no edema noted Arm (L), no edema noted Arm (R), no edema noted Leg (L), no edema noted Leg (R), no edema noted Pedal (L), no edema noted Pedal (R), no edema noted Generalized Neurologic: rod piler II-XII grossly normal, oriented x 3, responsive Margaret Lorenzo DO Jun 01, 2019 19:17
--- NOTE | 2019-06-01 19:21 | NUR ---
HAND-OFF: Report given to Naveed STERLING. Pt. remain stable.
--- NOTE | 2019-06-01 20:00 | NUR ---
NURSE NOTES: Patient received and is awake and oriented. Patient is trached to ventilator AC 16/600/30%/6 Portex 7.0. Patient is NSR on the monitor and BP is stable. Patient has an macerated wound around the an old GT site that covered with a dry dressing. Patient has a Purewick and working well. Sacral wound noted. Right IJ TLC noted running TKO , no acute distress at this time, will continue to monitor. Addendum: 06/02/19 at 0043 by KIM TAM RN NURSE NOTES: wrong patient entry, wrong patient, disregard this note.
--- NOTE | 2019-06-01 20:00 | NUR ---
NURSE NOTES: Patient received from Nava STERLING. Patient is awake and oriented X4, Patient can make needs know. R Ac 20G and R FA 20G SL. L wrist 22G SL. Patient is in semi-fowlers position and receiving 3L NC O2. Spaulding catheter noted. No respiratory distress at this time. Will continue to monitor. NSR.
[2019-06-01] MEDS: Carvedilol 25mg Tab ORAL SCH (20:14)
[2019-06-01] MEDS: LORazepam 1mg tab ORAL PRN (20:14)
[2019-06-01] MEDS: Atorvastatin 20mg tab ORAL SCH (20:14)
[2019-06-01] MEDS: Pantoprazole Inj IVP SCH (20:14)
[2019-06-01] MEDS ORDERED: Atorvastatin 20mg tab ORAL SCH (21:00)
[2019-06-01] MEDS ORDERED: Carvedilol 25mg Tab ORAL SCH (21:00)
[2019-06-01] MEDS ORDERED: Pantoprazole Inj IVP SCH (21:00)
[2019-06-01] MEDS ORDERED: Miralax 17gm pkt ORAL PRN (21:00)
[2019-06-02] VITALS: BP 142/60
[2019-06-02] MEDS: HYDROmorphone 1mg/ml Carpuject IVP PRN
--- NOTE | 2019-06-02 | NUR ---
NURSE NOTES: Patient contnues to state of having left lower extremity pain. I have given patient Dilaudid already and patient states that its not working very well. Patient was repositioned and elevated extremity for comfort. Vitals have remained stable.
--- NOTE | 2019-06-02 00:45 | Consultation ---
DATE OF CONSULTATION: 06/01/2019 CARDIOLOGY CONSULTATION CONSULTING PHYSICIAN: Anderson Reddy M.D. REFERRING PHYSICIAN: 1. Oswald Rousseau M.D. 2. Cristian Zambrano M.D. REASON FOR CONSULTATION: Management of hypertension and paroxysmal atrial fibrillation. HISTORY OF PRESENT ILLNESS: The patient is a 69-year-old lady with history of hypertension and paroxysmal atrial fibrillation as well as chronic kidney disease secondary to obstructive uropathy status post renal transplant x2, on chronic immunosuppression. The patient reportedly has also coronary artery disease and history of heart failure with preserved ejection fraction, type 2 diabetes , history of CVA, as well as history of prior cholecystectomy. The patient presented to the emergency room complaining of left leg pain as well as ankle pain. The patient was noted to be severely anemic. Per the patient's records, the patient had EGD on January 30, 2019 that had medium amount of blood in the stomach and normal duodenal bulb. The patient also had colonoscopy in January 22, 2019 that showed diverticulosis of left colon. The patient was seen in May at [facility] where she signed out AMA and she was taken to [facility] after she got home. On this admission, the patient was found to have hemoglobin of 4.9, BUN of 68, and creatinine of 1. The patient received 2 units of blood transfusion. The patient underwent EGD earlier this morning by Dr. Gaffney that showed gastritis. At the time of my evaluation, the patient denies any chest pain or shortness of breath. REVIEW OF SYSTEMS: Review of systems was negative other than what was mentioned in the history of present illness. PAST MEDICAL HISTORY: As mentioned above. MEDICATIONS: Include Norvasc 10 mg daily, Coreg 25 mg b.i.d., Avapro 150 mg daily, Crestor, Demadex 20 mg daily, prednisone, tacrolimus, glipizide, and buspirone. FAMILY HISTORY: Noncontributory. SOCIAL HISTORY: She lives at home. Does not smoke or drink alcohol. PHYSICAL EXAMINATION: VITAL SIGNS: Show blood pressure of 130/90, pulse is 90, respirations 18, and she is afebrile. HEAD AND NECK: Shows no JVD. LUNGS: Clear. CARDIOVASCULAR: Shows regular S1 and S2 with no gallop. ABDOMEN: Soft. EXTREMITIES: Trace pitting edema. LABORATORY AND DIAGNOSTIC DATA: Her EKG shows sinus rhythm with inferolateral ischemia. Her labs show hemoglobin was 4.9, currently after blood transfusion is 8.2, white count of 11.8, and platelet count is 128,000. Sodium is 137, potassium 5.0, BUN of 75, creatinine 1.6, and glucose of 143. BNP is 5831. Her first troponin is negative. ASSESSMENT AND PLAN: 1. Paroxysmal atrial fibrillation, currently in sinus rhythm. The patient is off anticoagulation obviously in view of gastrointestinal bleed. 2. Inferolateral ischemia on the EKG, likely due to severe anemia. EKG will be repeated. We will get an echocardiogram for further evaluation. 3. Upper GI bleed with hemoglobin of 4.5. The patient underwent esophagogastroduodenoscopy by Dr. Gaffney today that showed gastritis and underwent biopsy. Otherwise normal upper gastrointestinal examination. 4. Severe azotemia, likely due to gastrointestinal bleed, status post renal transplant, followed by Dr. Gama, who is corporate aircraft mechanic, . 5. Diabetes. 6. Obesity. 7. History of . 8. History of CVA. 9. History of cholecystectomy. Thank you very much, Dr. Zambrano, for allowing me to participate in the care of this patient. Please do not hesitate to contact me for any questions regarding my evaluation. Anderson Reddy M.D. DR: BARRINGTON JOB#: [id number] CC:
--- NOTE | 2019-06-02 02:00 | NUR ---
NURSE NOTES: Patient continues state pain of lower leg pain, left leg, IV meds not due yet, patient is refusing PO pain medications.
--- NOTE | 2019-06-02 03:38 | NUR ---
NURSE NOTES: Patient is refusing AM EKG at this time, will try again later, patient is stable at this time.
[2019-06-02 04:00] VITALS: BP 144/63
[2019-06-02 04:02] LABS: HEMATOCRIT 20.6 % (37.0-47.0); MEAN CORPUSCULAR VOLUME 89 FL (80-99); PLATELET COUNT 151 K/UL (150-450); RED BLOOD COUNT 2.32 M/UL (4.20-5.40); WHITE BLOOD COUNT 10.3 K/UL (4.8-10.8)
--- NOTE | 2019-06-02 04:11 | NUR ---
NURSE NOTES: Patient continues to refuse AM EKG. Patient was cleaned and reposition, no BM. Urine collected and sent to lab. Patient continues to left foot pain, already gave 2mg of Dilaudid. BP is stable.
--- NOTE | 2019-06-02 05:46 | NUR ---
NURSE NOTES: Asked if I could do AM EKG but patient refuses at this time stating that patient wants better pain medication if she is to comply. Patient refuses PO pain medication.
[2019-06-02] MEDS: NovoLOG Insulin Flexpen SUBQ SCH ×4 (05:56→22:12)
[2019-06-02 06:00] LABS: ALANINE AMINOTRANSFERASE 14 U/L (12-78); ALBUMIN 2.9 G/DL (3.4-5.0); ALKALINE PHOSPHATASE 62 U/L (46-116); ANION GAP 13 mmol/L (5-15); ASPARTATE AMINO TRANSFERASE 12 U/L (15-37); BILIRUBIN,TOTAL 0.8 MG/DL (0.2-1.0); BLOOD UREA NITROGEN 77 mg/dL (7-18); CALCIUM 8.4 MG/DL (8.5-10.1); CARBON DIOXIDE 17 MMOL/L (21-32); CHLORIDE 110 MMOL/L (98-107); CREATININE 1.4 MG/DL (0.55-1.30); PHOSPHORUS 3.9 MG/DL (2.5-4.9); POTASSIUM 4.9 MMOL/L (3.5-5.1); SODIUM 139 MMOL/L (136-145)
--- NOTE | 2019-06-02 06:49 | NUR ---
NURSE NOTES: Called Dr. Cope answering service line and left messgae regarding Hg of 7.0, awaiting for Dr. Cope production proofreader
--- NOTE | 2019-06-02 06:55 | NUR ---
NURSE NOTES: Dr. Leonardo Simpson called back, I gave him updates on patients status. Dr. Patterson wants to have another CBC at noon to follow up on patients hg level, until now just monitor patient. Patient is hemodynamically stable at this time.
--- NOTE | 2019-06-02 07:25 | NUR ---
NURSE NOTES: Received report from Linda Shaw RN. Patient awake in bed, alert and oriented x 4, able to make needs known. Receiving O2 via nasal cannula @ 3L/min, no s/s of respiratory distress noted. Spaulding catheter patent and draining well. Left wrist 22g, right hand 20g and right AC 20g saline locks patent and asymptomatic. Bed locked in lowest position with padded side rails up x 3. All needs attended to. Call light within reach. Will continue to monitor.
[2019-06-02 08:00] VITALS: BP 138/63
[2019-06-02] MEDS: Docusate 100mg cap ORAL SCH ×2 (09:00→17:40)
[2019-06-02] MEDS: Pantoprazole Inj IVP SCH ×2 (09:09→22:05)
--- NOTE | 2019-06-02 09:09 | General Progress Note ---
Assessment/Plan Problem List: (1) GI bleed ICD Codes: K92.2 - Gastrointestinal hemorrhage, unspecified SNOMED: 00850737 (2) Pneumonia ICD Codes: J18.9 - Pneumonia, unspecified organism SNOMED: 477858839 (3) Upper respiratory symptom ICD Codes: R09.89 - Other specified symptoms and signs involving the circulatory and respiratory systems SNOMED: 523231205 (4) Contusion ICD Codes: T14.8 - Other injury of unspecified body region SNOMED: 738603238 Status: stable Assessment/Plan: s/p EGD yesterday no obvious active GIB on diet fu H&H stool ob Subjective ROS Limited/Unobtainable: Yes Allergies: Coded Allergies: No Known Allergies (Unverified , 06/26/17) Objective Last 24 Hour Vital Signs Date Time Temp Pulse Resp B/P (MAP) Pulse Ox O2 Delivery O2 Flow Rate FiO2 06/02/19 08:00 98.4 87 18 138/63 (88) 97 06/02/19 07:17 96 Nasal Cannula 3.0 32 06/02/19 04:00 99.0 91 20 144/63 (90) 97 06/02/19 04:00 88 06/02/19 04:00 Nasal Cannula 3.0 Nasal Cannula 3.0 Nasal Cannula 3.0 06/02/19 00:21 87 20 100 Nasal Cannula 3.0 32 88 20 100 06/02/19 00:00 96.0 88 22 142/60 (87) 100 06/02/19 00:00 91 06/02/19 00:00 Nasal Cannula 3.0 Nasal Cannula 3.0 Nasal Cannula 3.0 06/01/19 20:14 97 139/84 06/01/19 20:00 95 22 130/64 (86) 93 06/01/19 20:00 Nasal Cannula 3.0 Nasal Cannula 3.0 Nasal Cannula 3.0 06/01/19 20:00 90 06/01/19 19:26 91 Nasal Cannula 3.0 32 06/01/19 16:00 Nasal Cannula 3.0 Nasal Cannula 3.0 Nasal Cannula 3.0 06/01/19 16:00 98.9 97 19 139/84 (102) 91 06/01/19 15:37 85 06/01/19 14:00 84 29 130/116 (121) 92 06/01/19 13:21 100 Nasal Cannula 3.0 32 06/01/19 13:00 82 28 128/90 (103) 97 06/01/19 12:00 Nasal Cannula 3.0 Nasal Cannula 3.0 Nasal Cannula 3.0 06/01/19 12:00 98.8 76 24 85/66 (72) 100 06/01/19 11:48 78 06/01/19 10:00 81 15 89/32 (51) 99 06/01/19 09:42 84 18 97 06/01/19 09:41 83 18 98 Intake and Output 06/01/19 06/02/19 19:00 07:00 Intake Total 550 ml 200 ml Output Total 420 ml 700 ml Balance 130 ml -500 ml Intake Oral 250 ml 200 ml IV Total 300 ml Output Urine Total 420 ml 700 ml Laboratory Tests 06/01/19 11:45: Iron Level 57, Total Iron Binding Capacity 208L, Percent Iron Saturation 27, Unsaturated Iron Binding 151, Vitamin B12 Level 552 06/01/19 19:00: Troponin I 0.007 06/02/19 03:40: Troponin I 0.016, White Blood Count 10.3, Red Blood Count 2.32L, Hemoglobin 7.0L , Hematocrit 20.6L, Mean Corpuscular Volume 89, Mean Corpuscular Hemoglobin 30.3 , Mean Corpuscular Hemoglobin Concent 34.1, Red Cell Distribution Width 15.0H, Platelet Count 151, Mean Platelet Volume 6.7, Neutrophils (%) (Auto) , Lymphocytes (%) (Auto) , Monocytes (%) (Auto) , Eosinophils (%) (Auto) , Basophils (%) (Auto) , Differential Total Cells Counted 100, Neutrophils % ( Manual) 92H, Lymphocytes % (Manual) 5L, Monocytes % (Manual) 3, Eosinophils % ( Manual) 0, Basophils % (Manual) 0, Band Neutrophils 0, Platelet Estimate Adequate, Platelet Morphology Normal, Anisocytosis 1+, Sodium Level 139, Potassium Level 4.9, Chloride Level 110H, Carbon Dioxide Level 17L, Anion Gap 13 , Blood Urea Nitrogen 77H, Creatinine 1.4H, Estimat Glomerular Filtration Rate , Glucose Level 239H, Lactic Acid Level 0.80, Uric Acid 10.3H, Calcium Level 8.4L, Phosphorus Level 3.9, Magnesium Level 2.3, Total Bilirubin 0.8, Aspartate Amino Transf (AST/SGOT) 12L, Alanine Aminotransferase (ALT/SGPT) 14, Alkaline Phosphatase 62, C-Reactive Protein, Quantitative 7.6H, Pro-B-Type Natriuretic Peptide 33558X, Total Protein 5.9L, Albumin 2.9L, Globulin 3.0, Albumin/ Globulin Ratio 1.0, Lipase 62L, Thyroid Stimulating Hormone (TSH) 0.234L 06/02/19 04:00: Urine Eosinophils None seen Height (Feet): 5 Height (Inches): 2.00 Weight (Pounds): 175 General Appearance: alert EENT: normal ENT inspection Neck: supple Cardiovascular: normal rate Respiratory/Chest: decreased breath sounds Abdomen: normal bowel sounds, non tender, soft Extremities: non-tender Anuj Gaffney MD Jun 02, 2019 09:09
[2019-06-02] MEDS: LORazepam 1mg tab ORAL PRN (09:10)
[2019-06-02] MEDS: Mycophenolate 250mg cap ORAL SCH ×2 (09:10→17:40)
[2019-06-02] MEDS: Carvedilol 25mg Tab ORAL SCH ×2 (09:10→22:05)
--- NOTE | 2019-06-02 10:38 | General Progress Note ---
Assessment/Plan Problem List: (1) Upper respiratory infection ICD Codes: J06.9 - Acute upper respiratory infection, unspecified SNOMED: 10964952 (2) Leg pain ICD Codes: M79.606 - Pain in leg, unspecified SNOMED: 47721237 (3) Pneumonia ICD Codes: J18.9 - Pneumonia, unspecified organism SNOMED: 899863913 (4) GI bleed ICD Codes: K92.2 - Gastrointestinal hemorrhage, unspecified SNOMED: 17596296 (5) Upper respiratory symptom ICD Codes: R09.89 - Other specified symptoms and signs involving the circulatory and respiratory systems SNOMED: 875848800 Status: stable Assessment/Plan: 69 year old female, with acute GI bleed likely upper. #Acute Encephalopathy. ? Dilaudid induced vs hypoxic #Acute upper GI bleed s/p EGD showing gastris #Left foot base 3rd nad 4th phalanges fracture #CKD secondary to obstructive uropathy status post cadaveric renal transplant x2 on chronic immunosuppression #CAD #atrial fibrillation #hypertension #HFpEF #DM II #carotid stenosis #History of CVA Plan: - f/u egd path, f/u fobt, if positive, consider colo IV fluids stopped, left pleural effusion to be evaluated for thoracentesis tomorrow, follow-up TTE -Transfuse prbc to hgb 8 given cardiac history . PPI bolus 80 mg, then drip -GI consult stat -Check stool for occult blood -Check ABG -Place on bipap - advance diet per gi -Hold home bp medications -Immunosuppression per nephrology consult -Ortho consult once hemodynamically more stable -Pain control -Call family, obtain further information, medication records -PCP: Bishop Villar -code: full code -vte ppx: SCD boots I spent 40minutes on this patient's case, 50% was dedicated to care coordination and counseling I spent an additional 36 Minutes on reviewing patient's chart from admission. This includes review of imaging, labs, notes, and interpretation of results. Time of note may not reflect time of encounter time of this note may not reflect time of encounter. Subjective Date patient seen: Jun 02, 2019 Allergies: Coded Allergies: No Known Allergies (Unverified , 06/26/17) Subjective patient feels anxious denies bleeding, sob, cp the time of my note may not reflect the time of my patient encounter. No melena or hematochezia, 2 L nasal cannula with O2 saturation of 90% Objective Last 24 Hour Vital Signs Date Time Temp Pulse Resp B/P (MAP) Pulse Ox O2 Delivery O2 Flow Rate FiO2 06/02/19 09:10 87 138/63 06/02/19 08:00 Nasal Cannula 3.0 Nasal Cannula 3.0 Nasal Cannula 3.0 06/02/19 08:00 98.4 87 18 138/63 (88) 97 06/02/19 07:17 96 Nasal Cannula 3.0 32 06/02/19 04:00 99.0 91 20 144/63 (90) 97 06/02/19 04:00 88 06/02/19 04:00 Nasal Cannula 3.0 Nasal Cannula 3.0 Nasal Cannula 3.0 06/02/19 00:21 87 20 100 Nasal Cannula 3.0 32 88 20 100 06/02/19 00:00 96.0 88 22 142/60 (87) 100 06/02/19 00:00 91 06/02/19 00:00 Nasal Cannula 3.0 Nasal Cannula 3.0 Nasal Cannula 3.0 06/01/19 20:14 97 139/84 06/01/19 20:00 95 22 130/64 (86) 93 06/01/19 20:00 Nasal Cannula 3.0 Nasal Cannula 3.0 Nasal Cannula 3.0 06/01/19 20:00 90 06/01/19 19:26 91 Nasal Cannula 3.0 32 06/01/19 16:00 Nasal Cannula 3.0 Nasal Cannula 3.0 Nasal Cannula 3.0 06/01/19 16:00 98.9 97 19 139/84 (102) 91 06/01/19 15:37 85 06/01/19 14:00 84 29 130/116 (121) 92 06/01/19 13:21 100 Nasal Cannula 3.0 32 06/01/19 13:00 82 28 128/90 (103) 97 06/01/19 12:00 Nasal Cannula 3.0 Nasal Cannula 3.0 Nasal Cannula 3.0 06/01/19 12:00 98.8 76 24 85/66 (72) 100 06/01/19 11:48 78 Intake and Output 06/01/19 06/02/19 19:00 07:00 Intake Total 550 ml 200 ml Output Total 420 ml 700 ml Balance 130 ml -500 ml Intake Oral 250 ml 200 ml IV Total 300 ml Output Urine Total 420 ml 700 ml Laboratory Tests 06/01/19 11:45: Iron Level 57, Total Iron Binding Capacity 208L, Percent Iron Saturation 27, Unsaturated Iron Binding 151, Vitamin B12 Level 552 06/01/19 19:00: Troponin I 0.007 06/02/19 03:40: Troponin I 0.016, White Blood Count 10.3, Red Blood Count 2.32L, Hemoglobin 7.0L , Hematocrit 20.6L, Mean Corpuscular Volume 89, Mean Corpuscular Hemoglobin 30.3 , Mean Corpuscular Hemoglobin Concent 34.1, Red Cell Distribution Width 15.0H, Platelet Count 151, Mean Platelet Volume 6.7, Neutrophils (%) (Auto) , Lymphocytes (%) (Auto) , Monocytes (%) (Auto) , Eosinophils (%) (Auto) , Basophils (%) (Auto) , Differential Total Cells Counted 100, Neutrophils % ( Manual) 92H, Lymphocytes % (Manual) 5L, Monocytes % (Manual) 3, Eosinophils % ( Manual) 0, Basophils % (Manual) 0, Band Neutrophils 0, Platelet Estimate Adequate, Platelet Morphology Normal, Anisocytosis 1+, Sodium Level 139, Potassium Level 4.9, Chloride Level 110H, Carbon Dioxide Level 17L, Anion Gap 13 , Blood Urea Nitrogen 77H, Creatinine 1.4H, Estimat Glomerular Filtration Rate , Glucose Level 239H, Lactic Acid Level 0.80, Uric Acid 10.3H, Calcium Level 8.4L, Phosphorus Level 3.9, Magnesium Level 2.3, Total Bilirubin 0.8, Aspartate Amino Transf (AST/SGOT) 12L, Alanine Aminotransferase (ALT/SGPT) 14, Alkaline Phosphatase 62, C-Reactive Protein, Quantitative 7.6H, Pro-B-Type Natriuretic Peptide 29084O, Total Protein 5.9L, Albumin 2.9L, Globulin 3.0, Albumin/ Globulin Ratio 1.0, Lipase 62L, Thyroid Stimulating Hormone (TSH) 0.234L 06/02/19 04:00: Urine Eosinophils None seen Height (Feet): 5 Height (Inches): 2.00 Weight (Pounds): 175 Objective GENERAL: No acute distress, appears comfortable, alert, patient anxious HEENT: NCAT, non-icteric eyes, pupils PERRLA Neck: No cervical lymphadenopathy, trachea midline CV: Regular rate and rhythm, no murmurs rubs or gallops RESP: Decreased breath sounds left lower lung field, otherwise clear to auscultation bilaterally ABD: soft, non-distended, no TTP EXT: Normal muscle tone, +5/5 muscle strength NEURO: No obvious deficits, alert and oriented x3 Margaret Lorenzo DO Jun 02, 2019 10:38
--- NOTE | 2019-06-02 10:51 | Nephrology Progress Note ---
Assessment/Plan Problem List: (1) Acute renal failure (2) DMII (diabetes mellitus, type 2) (3) Severe anemia (4) Kidney transplant status Assessment Severe Anemia transfused 5 units Acute renal failure- Cr down to 1.4 from 1.6 s/p Kidney Tx DM Obese Hypotension h/o Obstructive uropathy CAD At fib Carotid Stenosis CVA s/p cholecystectomy Plan [place] Fluid challenge as needed more transfusion for low H&H IV Iron once monitor renal parameters Keep BP and BS in check ECHO RESULTS?? Per orders Subjective ROS Limited/Unobtainable: No Constitutional: Reports: malaise, weakness Objective Objective Last 24 Hour Vital Signs Date Time Temp Pulse Resp B/P (MAP) Pulse Ox O2 Delivery O2 Flow Rate FiO2 06/02/19 09:10 87 138/63 06/02/19 08:00 Nasal Cannula 3.0 Nasal Cannula 3.0 Nasal Cannula 3.0 06/02/19 08:00 98.4 87 18 138/63 (88) 97 06/02/19 07:53 80 06/02/19 07:17 96 Nasal Cannula 3.0 32 06/02/19 04:00 99.0 91 20 144/63 (90) 97 06/02/19 04:00 88 06/02/19 04:00 Nasal Cannula 3.0 Nasal Cannula 3.0 Nasal Cannula 3.0 06/02/19 00:21 87 20 100 Nasal Cannula 3.0 32 88 20 100 06/02/19 00:00 96.0 88 22 142/60 (87) 100 06/02/19 00:00 91 06/02/19 00:00 Nasal Cannula 3.0 Nasal Cannula 3.0 Nasal Cannula 3.0 06/01/19 20:14 97 139/84 06/01/19 20:00 95 22 130/64 (86) 93 06/01/19 20:00 Nasal Cannula 3.0 Nasal Cannula 3.0 Nasal Cannula 3.0 06/01/19 20:00 90 06/01/19 19:26 91 Nasal Cannula 3.0 32 06/01/19 16:00 Nasal Cannula 3.0 Nasal Cannula 3.0 Nasal Cannula 3.0 06/01/19 16:00 98.9 97 19 139/84 (102) 91 06/01/19 15:37 85 06/01/19 14:00 84 29 130/116 (121) 92 06/01/19 13:21 100 Nasal Cannula 3.0 32 06/01/19 13:00 82 28 128/90 (103) 97 06/01/19 12:00 Nasal Cannula 3.0 Nasal Cannula 3.0 Nasal Cannula 3.0 06/01/19 12:00 98.8 76 24 85/66 (72) 100 06/01/19 11:48 78 Intake and Output 06/01/19 06/02/19 19:00 07:00 Intake Total 550 ml 200 ml Output Total 420 ml 700 ml Balance 130 ml -500 ml Intake Oral 250 ml 200 ml IV Total 300 ml Output Urine Total 420 ml 700 ml Laboratory Tests 06/01/19 11:45: Iron Level 57, Total Iron Binding Capacity 208L, Percent Iron Saturation 27, Unsaturated Iron Binding 151, Vitamin B12 Level 552 06/01/19 19:00: Troponin I 0.007 06/02/19 03:40: Troponin I 0.016, White Blood Count 10.3, Red Blood Count 2.32L, Hemoglobin 7.0L , Hematocrit 20.6L, Mean Corpuscular Volume 89, Mean Corpuscular Hemoglobin 30.3 , Mean Corpuscular Hemoglobin Concent 34.1, Red Cell Distribution Width 15.0H, Platelet Count 151, Mean Platelet Volume 6.7, Neutrophils (%) (Auto) , Lymphocytes (%) (Auto) , Monocytes (%) (Auto) , Eosinophils (%) (Auto) , Basophils (%) (Auto) , Differential Total Cells Counted 100, Neutrophils % ( Manual) 92H, Lymphocytes % (Manual) 5L, Monocytes % (Manual) 3, Eosinophils % ( Manual) 0, Basophils % (Manual) 0, Band Neutrophils 0, Platelet Estimate Adequate, Platelet Morphology Normal, Anisocytosis 1+, Sodium Level 139, Potassium Level 4.9, Chloride Level 110H, Carbon Dioxide Level 17L, Anion Gap 13 , Blood Urea Nitrogen 77H, Creatinine 1.4H, Estimat Glomerular Filtration Rate , Glucose Level 239H, Lactic Acid Level 0.80, Uric Acid 10.3H, Calcium Level 8.4L, Phosphorus Level 3.9, Magnesium Level 2.3, Total Bilirubin 0.8, Aspartate Amino Transf (AST/SGOT) 12L, Alanine Aminotransferase (ALT/SGPT) 14, Alkaline Phosphatase 62, C-Reactive Protein, Quantitative 7.6H, Pro-B-Type Natriuretic Peptide 05148Q, Total Protein 5.9L, Albumin 2.9L, Globulin 3.0, Albumin/ Globulin Ratio 1.0, Lipase 62L, Thyroid Stimulating Hormone (TSH) 0.234L 06/02/19 04:00: Urine Eosinophils None seen Height (Feet): 5 Height (Inches): 2.00 Weight (Pounds): 175 General Appearance: no apparent distress, lethargic Cardiovascular: tachycardia Respiratory/Chest: decreased breath sounds Abdomen: soft, distended Joaquim Gama MD Jun 02, 2019 10:51
[2019-06-02] MEDS ORDERED: Iron Sucrose 200 MG in NS 50 ML IV SCH (11:00)
[2019-06-02 12:00] VITALS: BP 130/69
--- NOTE | 2019-06-02 12:22 | NUR ---
RD ASSESSMENT & RECOMMENDATIONS SEE CARE ACTIVITY FOR COMPLETE ASSESSMENT DAILY ESTIMATED NEEDS: Needs based on Wounds, cardiac, renal, 57kg adj 25-35 kcals/kg 8517-6083 total kcals 1.25-1.5 g protein/kg 71-86 g total protein fluid per MD NUTRITION DIAGNOSIS: Increased kcal and pro needs r/t wound healing as evidenced by sacral redness and R heel DTPI. CURRENT DIET:Full liquid diet PO DIET RECOMMENDATIONS: Advance as tolerated to Soft/ CCHO LOW / LOW NA diet ADDITIONAL RECOMMENDATIONS: 1) Wound care: add AURE FRUIT PUNCH in 8oz H2O BID + Vit C 250mg daily 2) Pt refused Ensure/ or Glucerna 3) High Pro snacks in b.w meals as tolerated w/ advanced diet 4) [employer]ENDER eval if appropriate
--- NOTE | 2019-06-02 14:51 | Cardiac Electrophysiology PN ---
Assessment/Plan Assessment/Plan 1. Paroxysmal atrial fibrillation, currently in sinus rhythm. On Coreg 25 bid. Off anticoagulation in view of gastrointestinal bleed. 2. Inferolateral ischemia on the EKG, likely due to severe anemia. EKG will be repeated. Echocardiogram pendingf 3. Upper GI bleed with hemoglobin of 4.5. S/P 5 units of PRBC. The patient underwent esophagogastroduodenoscopy by Dr. Gaffney that showed gastritis and underwent biopsy. Otherwise normal upper gastrointestinal examination. 4. Severe azotemia, likely due to gastrointestinal bleed, status post renal transplant, followed by Dr. 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 Diabetes. 6. Obesity. 7. History of CVA. 8. History of cholecystectomy. Subjective Subjective Alert in NAD. No CP or SOB. RN at bedside Objective Last 24 Hour Vital Signs Date Time Temp Pulse Resp B/P (MAP) Pulse Ox O2 Delivery O2 Flow Rate FiO2 06/02/19 12:00 Nasal Cannula 3.0 Nasal Cannula 3.0 Nasal Cannula 3.0 06/02/19 12:00 98.3 82 18 130/69 (89) 98 06/02/19 11:33 71 06/02/19 09:10 87 138/63 06/02/19 08:00 Nasal Cannula 3.0 Nasal Cannula 3.0 Nasal Cannula 3.0 06/02/19 08:00 98.4 87 18 138/63 (88) 97 06/02/19 07:53 80 06/02/19 07:17 96 Nasal Cannula 3.0 32 06/02/19 04:00 99.0 91 20 144/63 (90) 97 06/02/19 04:00 88 06/02/19 04:00 Nasal Cannula 3.0 Nasal Cannula 3.0 Nasal Cannula 3.0 06/02/19 00:21 87 20 100 Nasal Cannula 3.0 32 88 20 100 06/02/19 00:00 96.0 88 22 142/60 (87) 100 06/02/19 00:00 91 06/02/19 00:00 Nasal Cannula 3.0 Nasal Cannula 3.0 Nasal Cannula 3.0 06/01/19 20:14 97 139/84 06/01/19 20:00 95 22 130/64 (86) 93 06/01/19 20:00 Nasal Cannula 3.0 Nasal Cannula 3.0 Nasal Cannula 3.0 06/01/19 20:00 90 06/01/19 19:26 91 Nasal Cannula 3.0 32 06/01/19 16:00 Nasal Cannula 3.0 Nasal Cannula 3.0 Nasal Cannula 3.0 06/01/19 16:00 98.9 97 19 139/84 (102) 91 06/01/19 15:37 85 Intake and Output 06/01/19 06/02/19 19:00 07:00 Intake Total 550 ml 200 ml Output Total 420 ml 700 ml Balance 130 ml -500 ml Intake Oral 250 ml 200 ml IV Total 300 ml Output Urine Total 420 ml 700 ml Laboratory Tests Test 06/01/19 19:00 06/02/19 03:40 06/02/19 04:00 Troponin I 0.007 ng/mL (0.000-0.056) 0.016 ng/mL (0.000-0.056) White Blood Count 10.3 K/UL (4.8-10.8) Red Blood Count 2.32 M/UL (4.20-5.40) L Hemoglobin 7.0 G/DL (12.0-16.0) L Hematocrit 20.6 % (37.0-47.0) L Mean Corpuscular Volume 89 FL (80-99) Mean Corpuscular Hemoglobin 30.3 PG (27.0-31.0) Mean Corpuscular Hemoglobin Concent 34.1 G/DL (32.0-36.0) Red Cell Distribution Width 15.0 % (11.6-14.8) H Platelet Count 151 K/UL (150-450) Mean Platelet Volume 6.7 FL (6.5-10.1) Neutrophils (%) (Auto) % (45.0-75.0) Lymphocytes (%) (Auto) % (20.0-45.0) Monocytes (%) (Auto) % (1.0-10.0) Eosinophils (%) (Auto) % (0.0-3.0) Basophils (%) (Auto) % (0.0-2.0) Differential Total Cells Counted 100 Neutrophils % (Manual) 92 % (45-75) H Lymphocytes % (Manual) 5 % (20-45) L Monocytes % (Manual) 3 % (1-10) Eosinophils % (Manual) 0 % (0-3) Basophils % (Manual) 0 % (0-2) Band Neutrophils 0 % (0-8) Platelet Estimate Adequate Platelet Morphology Normal Anisocytosis 1+ Sodium Level 139 MMOL/L (136-145) Potassium Level 4.9 MMOL/L (3.5-5.1) Chloride Level 110 MMOL/L (98-107) H Carbon Dioxide Level 17 MMOL/L (21-32) L Anion Gap 13 mmol/L (5-15) Blood Urea Nitrogen 77 mg/dL (7-18) H Creatinine 1.4 MG/DL (0.55-1.30) H Estimat Glomerular Filtration Rate mL/min (>60) Glucose Level 239 MG/DL (74-106) H Lactic Acid Level 0.80 mmol/L (0.4-2.0) Uric Acid 10.3 MG/DL (2.6-7.2) H Calcium Level 8.4 MG/DL (8.5-10.1) L Phosphorus Level 3.9 MG/DL (2.5-4.9) Magnesium Level 2.3 MG/DL (1.8-2.4) Total Bilirubin 0.8 MG/DL (0.2-1.0) Aspartate Amino Transf (AST/SGOT) 12 U/L (15-37) L Alanine Aminotransferase (ALT/SGPT) 14 U/L (12-78) Alkaline Phosphatase 62 U/L (46-116) C-Reactive Protein, Quantitative 7.6 mg/dL (0.00-0.90) H Pro-B-Type Natriuretic Peptide 57981 pg/mL (0-125) H Total Protein 5.9 G/DL (6.4-8.2) L Albumin 2.9 G/DL (3.4-5.0) L Globulin 3.0 g/dL Albumin/Globulin Ratio 1.0 (1.0-2.7) Lipase 62 U/L (73-393) L Thyroid Stimulating Hormone (TSH) 0.234 uiU/mL (0.358-3.740) Urine Eosinophils None seen (NONE SEEN) Objective HEAD AND NECK: No JVD. LUNGS: Clear. CARDIOVASCULAR: Regular S1 and S2 with no gallop. ABDOMEN: Soft. EXTREMITIES: Trace pitting edema. Anderson Reddy MD Jun 02, 2019 14:51
[2019-06-02 16:00] VITALS: BP 114/54
--- NOTE | 2019-06-02 18:00 | NUR ---
NURSE NOTES: Patient previously refused labs x 2. Dr. Lorenzo notified. Re-educated patient and patient agreed to have labs drawn. Laboratory made aware.
--- NOTE | 2019-06-02 19:00 | NUR ---
NURSE NOTES: Pt report received from Lolis Olmos RN CHRIS. pt is alert and oriented times 2, able to answer yes or no to simple questions. pt is on ekg monitor tech showing NSR, no cardiac abnormalities noted. pt is currently on T piece sating at 100%, no resp distress noted. Pt bed is low, locked, armed, bed rails up times 3, call light within reach. will follow plan of care. Addendum: 06/03/19 at 0125 by BEV SHEN RN NURSE NOTES: Pt report received from Lolis Olmos RN CHRIS. pt is alert and oriented times 2, able to answer yes or no to simple questions. pt is on ekg monitor tech showing NSR, no cardiac abnormalities noted. pt is currently on nasal canula sating at 100%, no resp distress noted. Pt bed is low, locked, armed, bed rails up times 3, call light within reach. will follow plan of care.
[2019-06-02 19:14] LABS: HEMATOCRIT 17.4 % (37.0-47.0); MEAN CORPUSCULAR VOLUME 90 FL (80-99); PLATELET COUNT 125 K/UL (150-450); RED BLOOD COUNT 1.92 M/UL (4.20-5.40); RED CELL DISTRIBUTION WIDTH 14.1 % (11.6-14.8); WHITE BLOOD COUNT 8.1 K/UL (4.8-10.8)
--- NOTE | 2019-06-02 19:17 | NUR ---
HAND-OFF: Report given to Arron Card RN. Endorsed to follow up on CBC results
[2019-06-02 19:21] LABS: BASOPHILS % (AUTO) 0.2 % (0.0-2.0); EOSINOPHILS % (AUTO) 0.3 % (0.0-3.0); LYMPHOCYTES % (AUTO) 5.8 % (20.0-45.0); MONOCYTES % (AUTO) 4.7 % (1.0-10.0); NEUTROPHILS % (AUTO) 88.9 % (45.0-75.0)
[2019-06-02] MEDS ORDERED: NS 275ml ONE (19:34)
[2019-06-02] MEDS ORDERED: Tubing IV Secondary IV ONE (19:34)
--- NOTE | 2019-06-02 19:42 | NUR ---
NURSE NOTES: Called MD Cope office. reported Urgent lab values and requested urgent request for MD Cope orders for critical lab value of HGB 6.0. pt appears stable at the moment.
--- NOTE | 2019-06-02 19:55 | NUR ---
NURSE NOTES: Called MD Gama to report critical lab of HGB 6.0. stated to contact [facility].
[2019-06-02 20:00] VITALS: BP 132/61
--- NOTE | 2019-06-02 20:00 | NUR ---
NURSE NOTES: Spoke with MD Swenson covoring for MD Rousseau. reported critical lab value HGB 6.0, current vital signs, 136/61, HR 83, o2 95%, aux temp 97.0. MD Swenson ordered 1 Unit PRBC. will follow orders. Addendum: 06/02/19 at 2017 by BEV SHEN RN NURSE NOTES: Spoke with MD Swenson covoring for MD Rousseau. reported critical lab value HGB 6.0, current vital signs, 136/61, HR 83, o2 95%, aux temp 97.0. MD Swenson ordered 1 Unit PRBC, repeat CBC, BNP in 0400 AM LABS. will follow orders.
--- NOTE | 2019-06-02 20:59 | NUR ---
NURSE NOTES: Pt refuses to have IV line. Reminded pt that IV is needed for blood transfusion. endorsed to construction plumber NEMIA. RN stated she will reeducate Pt.
[2019-06-02] MEDS: Atorvastatin 20mg tab ORAL SCH (22:05)
--- NOTE | 2019-06-02 23:35 | NUR ---
NURSE NOTES: Pts blood transfusion has now begun. pt is stable.
[2019-06-03] VITALS: BP 141/68
--- NOTE | 2019-06-03 03:40 | NUR ---
NURSE NOTES: blood (PRBC) sent back to lab. Addendum: 06/03/19 at 0529 by BEV SHEN RN NURSE NOTES: blood (PRBC) finished and sent back to lab.
[2019-06-03 04:00] VITALS: BP 146/62
[2019-06-03] MEDS: NovoLOG Insulin Flexpen SUBQ SCH ×4 (05:43→21:28)
[2019-06-03 06:33] LABS: HEMATOCRIT 19.8 % (37.0-47.0); MEAN CORPUSCULAR VOLUME 91 FL (80-99); PLATELET COUNT 117 K/UL (150-450); RED BLOOD COUNT 2.19 M/UL (4.20-5.40); RED CELL DISTRIBUTION WIDTH 15.3 % (11.6-14.8); WHITE BLOOD COUNT 7.8 K/UL (4.8-10.8)
[2019-06-03 06:57] LABS: PHOSPHORUS 2.6 MG/DL (2.5-4.9)
[2019-06-03 07:06] LABS: HEMOGLOBIN 6.5 G/DL (12.0-16.0)
--- NOTE | 2019-06-03 07:20 | NUR ---
HAND-OFF: Report given to Drew STERLING. Pt remains stable. Addendum: 06/03/19 at 0810 by BEV SHEN RN HAND-OFF: Report given to Melida Shea RN. Pt remains stable.
[2019-06-03 07:32] LABS: ALANINE AMINOTRANSFERASE 13 U/L (12-78); ALBUMIN 2.9 G/DL (3.4-5.0); ALBUMIN/GLOBULIN RATIO 1.1 (1.0-2.7); ALKALINE PHOSPHATASE 57 U/L (46-116); ANION GAP 11 mmol/L (5-15); ASPARTATE AMINO TRANSFERASE 9 U/L (15-37); BILIRUBIN,TOTAL 1.3 MG/DL (0.2-1.0); BLOOD UREA NITROGEN 60 mg/dL (7-18); CALCIUM 8.5 MG/DL (8.5-10.1); CARBON DIOXIDE 19 MMOL/L (21-32); CHLORIDE 113 MMOL/L (98-107); CREATININE 1.1 MG/DL (0.55-1.30); POTASSIUM 3.9 MMOL/L (3.5-5.1); SODIUM 143 MMOL/L (136-145)
[2019-06-03 07:36] LABS: BILIRUBIN,DIRECT 0.3 MG/DL (0.0-0.3)
--- NOTE | 2019-06-03 07:46 | General Progress Note ---
Assessment/Plan Problem List: (1) Severe anemia ICD Codes: D64.9 - Anemia, unspecified SNOMED: 422504669 (2) DMII (diabetes mellitus, type 2) ICD Codes: E11.9 - Type 2 diabetes mellitus without complications SNOMED: 69692268 (3) Acute renal failure ICD Codes: N17.9 - Acute kidney failure, unspecified SNOMED: 64414818 (4) GI bleed ICD Codes: K92.2 - Gastrointestinal hemorrhage, unspecified SNOMED: 19695568 (5) Toe fracture, left ICD Codes: S92.912A - Unspecified fracture of left toe(s), initial encounter for closed fracture SNOMED: 47189117 (6) Contusion ICD Codes: T14.8 - Other injury of unspecified body region SNOMED: 451632908 Status: stable Assessment/Plan: 69 year old female, with acute GI bleed likely upper. #Acute Encephalopathy. ? Dilaudid induced vs hypoxic #Acute upper GI bleed, egd unrevealing #Left foot base 3rd nad 4th phalanges fracture #CKD secondary to obstructive uropathy status post cadaveric renal transplant x2 on chronic immunosuppression #CAD #atrial fibrillation #hypertension #HFpEF #DM II #carotid stenosis #History of CVA Plan: -continue to monitor in SDU -Transfuse prbc to hgb 8 given cardiac history . PPI -GI consult appreciated, s/p EGD, no source of bleeding. No stool for occult blood yet. ?retroperitoneal bleed. For CT abdomen pelvis -Check stool for occult blood -bipap prn, o2 via nc, keep sats >92% -Immunosuppression per nephrology consult -Ortho consult once hemodynamically more stable -Pain control -PCP: Bishop Villar -code: full code -vte ppx: SCD boots I spent 40 minutes on this patient's case, and 20 mins dedicated to counselling and care coordination. case d/w consultants and patient's pcp Dr. Villar. time of this note may not reflect time of encounter. Subjective Date patient seen: Jun 03, 2019 ROS Limited/Unobtainable: No Constitutional: Reports: weakness, other - leg pain HEENT: Denies: no symptoms, eye pain, blurred vision, tearing, double vision, ear pain, ear discharge, nose pain, nose congestion, throat pain, throat swelling, mouth pain, mouth swelling, other Cardiovascular: Denies: no symptoms, chest pain, edema, irregular heart rate, lightheadedness, palpitations, syncope, other Respiratory: Reports: shortness of breath Gastrointestinal/Abdominal: Denies: no symptoms, abdomen distended, abdominal pain, black stools, tarry stools, blood in stool, constipated, diarrhea, difficulty swallowing, nausea, poor appetite, poor fluid intake, rectal bleeding , vomiting, other Hematologic/Lymphatic: Reports: anemia Allergies: Coded Allergies: No Known Allergies (Unverified , 06/26/17) Subjective seen, has required multiple prbc transfusions ( over the weekend. EGD without source of bleed. renal function better. Only complains of pain in her leg and sob Objective Last 24 Hour Vital Signs Date Time Temp Pulse Resp B/P (MAP) Pulse Ox O2 Delivery O2 Flow Rate FiO2 06/03/19 04:00 97.7 93 21 146/62 (90) 98 06/03/19 04:00 Nasal Cannula 3.0 Nasal Cannula 3.0 Nasal Cannula 3.0 06/03/19 03:57 94 06/03/19 00:00 97.4 83 20 141/68 (92) 98 06/03/19 00:00 Nasal Cannula 3.0 Nasal Cannula 3.0 Nasal Cannula 3.0 06/02/19 23:24 93 06/02/19 22:05 89 135/69 06/02/19 21:05 96 Nasal Cannula 4.0 36 06/02/19 20:00 97.2 85 19 132/61 (84) 99 06/02/19 20:00 Nasal Cannula 3.0 Nasal Cannula 3.0 Nasal Cannula 3.0 06/02/19 19:36 78 06/02/19 17:02 98.3 06/02/19 16:04 77 06/02/19 16:00 98.3 74 17 114/54 (74) 97 06/02/19 16:00 Nasal Cannula 3.0 Nasal Cannula 3.0 Nasal Cannula 3.0 06/02/19 12:00 Nasal Cannula 3.0 Nasal Cannula 3.0 Nasal Cannula 3.0 06/02/19 12:00 98.3 82 18 130/69 (89) 98 06/02/19 11:33 71 06/02/19 09:10 87 138/63 06/02/19 08:00 Nasal Cannula 3.0 Nasal Cannula 3.0 Nasal Cannula 3.0 06/02/19 08:00 98.4 87 18 138/63 (88) 97 06/02/19 07:53 80 Intake and Output 06/02/19 06/03/19 19:00 07:00 Intake Total 520 ml Output Total 900 ml 1100 ml Balance -380 ml -1100 ml Intake Oral 360 ml IV Total 160 ml Output Urine Total 900 ml 1100 ml Laboratory Tests 06/02/19 18:45: White Blood Count 8.1, Red Blood Count 1.92L, Hemoglobin 6.0*L, Hematocrit 17.4L , Mean Corpuscular Volume 90, Mean Corpuscular Hemoglobin 31.0, Mean Corpuscular Hemoglobin Concent 34.3, Red Cell Distribution Width 14.1, Platelet Count 125L, Mean Platelet Volume 6.6, Neutrophils (%) (Auto) 88.9H, Lymphocytes (%) (Auto) 5.8L, Monocytes (%) (Auto) 4.7, Eosinophils (%) (Auto) 0.3, Basophils (%) (Auto) 0.2, Differential Total Cells Counted 100, Neutrophils % ( Manual) 96H, Lymphocytes % (Manual) 4L, Monocytes % (Manual) 0L, Eosinophils % ( Manual) 0, Basophils % (Manual) 0, Band Neutrophils 0, Platelet Estimate DecreasedL, Platelet Morphology Normal, Polychromasia 1+, Anisocytosis 1+ 06/03/19 05:35: White Blood Count 7.8, Red Blood Count 2.19L, Hemoglobin 6.5*L, Hematocrit 19.8L , Mean Corpuscular Volume 91, Mean Corpuscular Hemoglobin 29.7, Mean Corpuscular Hemoglobin Concent 32.8, Red Cell Distribution Width 15.3H, Platelet Count 117L, Mean Platelet Volume 6.4L, Neutrophils (%) (Auto) , Lymphocytes (%) (Auto) , Monocytes (%) (Auto) , Eosinophils (%) (Auto) , Basophils (%) (Auto) , Neutrophils % (Manual) [Pending], Lymphocytes % (Manual) [Pending], Platelet Estimate [Pending], Platelet Morphology [Pending], Sodium Level 143, Potassium Level 3.9, Chloride Level 113H, Carbon Dioxide Level 19L, Anion Gap 11, Blood Urea Nitrogen 60H, Creatinine 1.1, Estimat Glomerular Filtration Rate , Glucose Level 200H, Calcium Level 8.5, Phosphorus Level 2.6, Magnesium Level 2.2, Total Bilirubin 1.3H, Direct Bilirubin 0.3, Aspartate Amino Transf (AST/SGOT) 9L, Alanine Aminotransferase (ALT/SGPT) 13, Alkaline Phosphatase 57, Troponin I 0.028, Total Protein 5.6L, Albumin 2.9L, Globulin 2.7 , Albumin/Globulin Ratio 1.1 Height (Feet): 5 Height (Inches): 2.00 Weight (Pounds): 175 General Appearance: alert, mild distress EENT: pale conjunctivae Neck: supple Cardiovascular: normal peripheral pulses, normal rate, regular rhythm, no gallop/murmur, no JVD Respiratory/Chest: lungs clear, respiratory distress Abdomen: normal bowel sounds, non tender, soft, no organomegaly Edema: trace edema Neurologic: oriented x 3, responsive Cristian Zambrano M.D. Jun 03, 2019 07:46
[2019-06-03 08:00] VITALS: BP 148/63
[2019-06-03] MEDS ORDERED: Omnipaque-300 100ml vial INJ PRN (08:45)
--- NOTE | 2019-06-03 08:47 | General Progress Note ---
Assessment/Plan Problem List: (1) GI bleed ICD Codes: K92.2 - Gastrointestinal hemorrhage, unspecified SNOMED: 58704232 (2) Pneumonia ICD Codes: J18.9 - Pneumonia, unspecified organism SNOMED: 471660648 (3) Upper respiratory symptom ICD Codes: R09.89 - Other specified symptoms and signs involving the circulatory and respiratory systems SNOMED: 155878702 (4) Contusion ICD Codes: T14.8 - Other injury of unspecified body region SNOMED: 879465867 Status: stable Assessment/Plan: s/p EGD no obvious active GIB on diet fu H&H stool ob bowel regimen CT of abd and pelvic pending blood transfusion for today Subjective ROS Limited/Unobtainable: Yes Allergies: Coded Allergies: No Known Allergies (Unverified , 06/26/17) Objective Last 24 Hour Vital Signs Date Time Temp Pulse Resp B/P (MAP) Pulse Ox O2 Delivery O2 Flow Rate FiO2 06/03/19 08:00 99.2 96 32 148/63 (91) 96 06/03/19 04:00 97.7 93 21 146/62 (90) 98 06/03/19 04:00 Nasal Cannula 3.0 Nasal Cannula 3.0 Nasal Cannula 3.0 06/03/19 03:57 94 06/03/19 00:00 97.4 83 20 141/68 (92) 98 06/03/19 00:00 Nasal Cannula 3.0 Nasal Cannula 3.0 Nasal Cannula 3.0 06/02/19 23:24 93 06/02/19 22:05 89 135/69 06/02/19 21:05 96 Nasal Cannula 4.0 36 06/02/19 20:00 97.2 85 19 132/61 (84) 99 06/02/19 20:00 Nasal Cannula 3.0 Nasal Cannula 3.0 Nasal Cannula 3.0 06/02/19 19:36 78 06/02/19 17:02 98.3 06/02/19 16:04 77 06/02/19 16:00 98.3 74 17 114/54 (74) 97 06/02/19 16:00 Nasal Cannula 3.0 Nasal Cannula 3.0 Nasal Cannula 3.0 06/02/19 12:00 Nasal Cannula 3.0 Nasal Cannula 3.0 Nasal Cannula 3.0 06/02/19 12:00 98.3 82 18 130/69 (89) 98 06/02/19 11:33 71 06/02/19 09:10 87 138/63 Intake and Output 06/02/19 06/03/19 19:00 07:00 Intake Total 520 ml Output Total 900 ml 1100 ml Balance -380 ml -1100 ml Intake Oral 360 ml IV Total 160 ml Output Urine Total 900 ml 1100 ml Laboratory Tests 06/02/19 18:45: White Blood Count 8.1, Red Blood Count 1.92L, Hemoglobin 6.0*L, Hematocrit 17.4L , Mean Corpuscular Volume 90, Mean Corpuscular Hemoglobin 31.0, Mean Corpuscular Hemoglobin Concent 34.3, Red Cell Distribution Width 14.1, Platelet Count 125L, Mean Platelet Volume 6.6, Neutrophils (%) (Auto) 88.9H, Lymphocytes (%) (Auto) 5.8L, Monocytes (%) (Auto) 4.7, Eosinophils (%) (Auto) 0.3, Basophils (%) (Auto) 0.2, Differential Total Cells Counted 100, Neutrophils % ( Manual) 96H, Lymphocytes % (Manual) 4L, Monocytes % (Manual) 0L, Eosinophils % ( Manual) 0, Basophils % (Manual) 0, Band Neutrophils 0, Platelet Estimate DecreasedL, Platelet Morphology Normal, Polychromasia 1+, Anisocytosis 1+ 06/03/19 05:35: White Blood Count 7.8, Red Blood Count 2.19L, Hemoglobin 6.5*L, Hematocrit 19.8L , Mean Corpuscular Volume 91, Mean Corpuscular Hemoglobin 29.7, Mean Corpuscular Hemoglobin Concent 32.8, Red Cell Distribution Width 15.3H, Platelet Count 117L, Mean Platelet Volume 6.4L, Neutrophils (%) (Auto) , Lymphocytes (%) (Auto) , Monocytes (%) (Auto) , Eosinophils (%) (Auto) , Basophils (%) (Auto) , Neutrophils % (Manual) [Pending], Lymphocytes % (Manual) [Pending], Platelet Estimate [Pending], Platelet Morphology [Pending], Sodium Level 143, Potassium Level 3.9, Chloride Level 113H, Carbon Dioxide Level 19L, Anion Gap 11, Blood Urea Nitrogen 60H, Creatinine 1.1, Estimat Glomerular Filtration Rate , Glucose Level 200H, Calcium Level 8.5, Phosphorus Level 2.6, Magnesium Level 2.2, Total Bilirubin 1.3H, Direct Bilirubin 0.3, Aspartate Amino Transf (AST/SGOT) 9L, Alanine Aminotransferase (ALT/SGPT) 13, Alkaline Phosphatase 57, Troponin I 0.028, Total Protein 5.6L, Albumin 2.9L, Globulin 2.7 , Albumin/Globulin Ratio 1.1 Height (Feet): 5 Height (Inches): 2.00 Weight (Pounds): 175 General Appearance: alert EENT: normal ENT inspection Neck: supple Cardiovascular: normal rate Respiratory/Chest: decreased breath sounds Abdomen: normal bowel sounds, non tender, soft Extremities: non-tender Anuj Gaffney MD Jun 03, 2019 08:47
[2019-06-03] MEDS: Carvedilol 25mg Tab ORAL SCH ×2 (09:08→21:26)
[2019-06-03] MEDS: Lactulose 10gm/15ml UDC ORAL SCH ×2 (09:09→17:19)
[2019-06-03] MEDS: Mycophenolate 250mg cap ORAL SCH ×2 (09:09→17:19)
[2019-06-03] MEDS: Docusate 100mg cap ORAL SCH ×2 (09:09→17:19)
[2019-06-03] MEDS: HYDROmorphone 1mg/ml Carpuject IVP PRN ×2 (09:10→17:19)
[2019-06-03] MEDS: Pantoprazole Inj IVP SCH ×2 (09:10→21:16)
--- NOTE | 2019-06-03 09:47 | CDS Physician Query ---
Clarification is required for compliance, coding accuracy, and to reflect severity of illness for this patient Dear Dr. Young Date: 06.03.19 CDS: Elisa Steele Please clarify the specific type of anemia below:patient diagnosed with severe anemia, tranfused on 05.31,06.01 and 06.02. Acuity [ ]Acute [ ]Acute on Chronic [ ]Chronic Etiology [ ] Blood loss [ ] ESRD [ ] Neoplastic disease [ ] Iron deficiency [ ] GI Bleeding [ ] Anemia of chronic disease [ ] Dilutional [ ] Postoperative [ *] Unable to determine [ ] Other: Present on Admission: [ ] Yes [ ] No [ ] Clinically Undetermined Physician signature Date Please also document in your Progress Notes and/or Discharge Summary and indicate if the condition was present on admission. MTDD
--- NOTE | 2019-06-03 09:52 | CDS Physician Query ---
Clarification is required for compliance, coding accuracy, and to reflect severity of illness for this patient Dear Dr. Zambrano Date: 06.03.19 CDS: Elisa Steele Encephalopathy is documented as being diaudid induced versus hypoxic. Please indicate the nature and chronicity of the condition below: [ ] Metabolic Encephalopathy [ ] Toxic Encephalopathy [x ] Toxic - Metabolic Encephalopathy [ ] Encephalopathy, Other [ ] Dementia with Delirium [ x] Hypoxic encephalopathy [ ] Posterior reversible encephalopathy syndrome [ ] Other: [ ] Not Applicable Present on Admission: [ x] Yes [ ] No [ ] Clinically Undetermined janet zambrano 06/04/2019 Physician signature Date Please also document in your Progress Notes and/or Discharge Summary and indicate if the condition was present on admission. DERICK
--- NOTE | 2019-06-03 11:39 | NUR ---
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 98.0 HR 99 RR 20 B/P 119/59 WBC 11.7 H/H 4.9/14.8 BUN 69 PT 13.0 INR 1.2 PH 7.29 PCO2 45.0 PO2 147.8 HCO3 21.4 O2 SAT 92.7 SIMPLE MASK CXR= LEFT PLEURAL EFFUSION RIGHT FOOT X-RAY=ACUTE FRACTURE VENOUS DOPPLER= NEGATIVE IS: MORPHINE IV ADMITTED TO STEP DOWN STEP DOWN STATUS DCP RETURN HOME
--- NOTE | 2019-06-03 11:50 | Nephrology Progress Note ---
Assessment/Plan Problem List: (1) Acute renal failure Assessment: Cr lowering (2) DMII (diabetes mellitus, type 2) (3) Severe anemia (4) Kidney transplant status Assessment Severe Anemia transfused 5 units Acute renal failure- Cr down to 1.1 from 1.4 from 1.6 s/p Kidney Tx DM Obese Hypotension h/o Obstructive uropathy CAD At fib Carotid Stenosis CVA s/p cholecystectomy Plan Spaulding Fluid challenge as needed more transfusion for low H&H IV Iron once monitor renal parameters Keep BP and BS in check ECHO RESULTS?? reordered Per orders Subjective ROS Limited/Unobtainable: No Constitutional: Reports: malaise, weakness Objective Objective Last 24 Hour Vital Signs Date Time Temp Pulse Resp B/P (MAP) Pulse Ox O2 Delivery O2 Flow Rate FiO2 06/03/19 09:40 99.2 06/03/19 09:08 96 148/63 06/03/19 08:00 99.2 96 32 148/63 (91) 96 06/03/19 07:26 94 Nasal Cannula 4.0 36 06/03/19 04:00 97.7 93 21 146/62 (90) 98 06/03/19 04:00 Nasal Cannula 3.0 Nasal Cannula 3.0 Nasal Cannula 3.0 06/03/19 03:57 94 06/03/19 00:00 97.4 83 20 141/68 (92) 98 06/03/19 00:00 Nasal Cannula 3.0 Nasal Cannula 3.0 Nasal Cannula 3.0 06/02/19 23:24 93 06/02/19 22:05 89 135/69 06/02/19 21:05 96 Nasal Cannula 4.0 36 06/02/19 20:00 97.2 85 19 132/61 (84) 99 06/02/19 20:00 Nasal Cannula 3.0 Nasal Cannula 3.0 Nasal Cannula 3.0 06/02/19 19:36 78 06/02/19 17:02 98.3 06/02/19 16:04 77 06/02/19 16:00 98.3 74 17 114/54 (74) 97 06/02/19 16:00 Nasal Cannula 3.0 Nasal Cannula 3.0 Nasal Cannula 3.0 06/02/19 12:00 Nasal Cannula 3.0 Nasal Cannula 3.0 Nasal Cannula 3.0 06/02/19 12:00 98.3 82 18 130/69 (89) 98 Intake and Output 06/02/19 06/03/19 19:00 07:00 Intake Total 520 ml Output Total 900 ml 1100 ml Balance -380 ml -1100 ml Intake Oral 360 ml IV Total 160 ml Output Urine Total 900 ml 1100 ml Laboratory Tests 06/02/19 18:45: White Blood Count 8.1, Red Blood Count 1.92L, Hemoglobin 6.0*L, Hematocrit 17.4L , Mean Corpuscular Volume 90, Mean Corpuscular Hemoglobin 31.0, Mean Corpuscular Hemoglobin Concent 34.3, Red Cell Distribution Width 14.1, Platelet Count 125L, Mean Platelet Volume 6.6, Neutrophils (%) (Auto) 88.9H, Lymphocytes (%) (Auto) 5.8L, Monocytes (%) (Auto) 4.7, Eosinophils (%) (Auto) 0.3, Basophils (%) (Auto) 0.2, Differential Total Cells Counted 100, Neutrophils % ( Manual) 96H, Lymphocytes % (Manual) 4L, Monocytes % (Manual) 0L, Eosinophils % ( Manual) 0, Basophils % (Manual) 0, Band Neutrophils 0, Platelet Estimate DecreasedL, Platelet Morphology Normal, Polychromasia 1+, Anisocytosis 1+ 06/03/19 05:35: White Blood Count 7.8, Red Blood Count 2.19L, Hemoglobin 6.5*L, Hematocrit 19.8L , Mean Corpuscular Volume 91, Mean Corpuscular Hemoglobin 29.7, Mean Corpuscular Hemoglobin Concent 32.8, Red Cell Distribution Width 15.3H, Platelet Count 117L, Mean Platelet Volume 6.4L, Neutrophils (%) (Auto) , Lymphocytes (%) (Auto) , Monocytes (%) (Auto) , Eosinophils (%) (Auto) , Basophils (%) (Auto) , Differential Total Cells Counted 100, Neutrophils % ( Manual) 90H, Lymphocytes % (Manual) 6L, Monocytes % (Manual) 4, Eosinophils % ( Manual) 0, Basophils % (Manual) 0, Band Neutrophils 0, Platelet Estimate DecreasedL, Platelet Morphology Normal, Polychromasia 1+, Anisocytosis 1+, Hypochromasia 1+, Sodium Level 143, Potassium Level 3.9, Chloride Level 113H, Carbon Dioxide Level 19L, Anion Gap 11, Blood Urea Nitrogen 60H, Creatinine 1.1 , Estimat Glomerular Filtration Rate , Glucose Level 200H, Calcium Level 8.5, Phosphorus Level 2.6, Magnesium Level 2.2, Total Bilirubin 1.3H, Direct Bilirubin 0.3, Aspartate Amino Transf (AST/SGOT) 9L, Alanine Aminotransferase ( ALT/SGPT) 13, Alkaline Phosphatase 57, Troponin I 0.028, Total Protein 5.6L, Albumin 2.9L, Globulin 2.7, Albumin/Globulin Ratio 1.1 06/03/19 08:30: Uric Acid 9.8H Height (Feet): 5 Height (Inches): 2.00 Weight (Pounds): 175 General Appearance: no apparent distress, lethargic Cardiovascular: tachycardia Respiratory/Chest: decreased breath sounds Abdomen: distended Joqauim Gama MD Jun 03, 2019 11:50
[2019-06-03 12:00] VITALS: BP 136/67
--- NOTE | 2019-06-03 12:00 | NUR ---
NURSE NOTES: O2 down to 85, pt now on Non- Rebreather mask, continue monitoring.
--- NOTE | 2019-06-03 14:42 | NUR ---
NURSE NOTES: received pt in the bed, awake, agitated, vital signs stable, no co pain, pt on o2 3l, HGB 6.5, one unit of PRBC ordered, skin warm and dry to touch, Spaulding with yellow urine, bed in low position, call light within reach.
--- NOTE | 2019-06-03 15:10 | Consultation ---
Consult Note Assessment/Plan DICT # [id number] Jose Miranda MD Jun 03, 2019 15:10
--- NOTE | 2019-06-03 15:44 | NUR ---
NURSE NOTES: ABG done, dr. WHITMAN notified with result.
[2019-06-03 16:00] VITALS: BP 127/60
--- NOTE | 2019-06-03 16:04 | Cardiac Electrophysiology PN ---
Assessment/Plan Assessment/Plan 1. Paroxysmal atrial fibrillation, currently in sinus rhythm. On Coreg 25 bid. Off anticoagulation in view of gastrointestinal bleed. 2. Inferolateral ischemia on the EKG, likely due to severe anemia. Echocardiogram EF 65% 3. Upper GI bleed with hemoglobin of 4.5. S/P 5 units of PRBC. Getting another PRBC today S/P EGD by Dr. Gaffney that showed gastritis and underwent biopsy. Otherwise normal upper gastrointestinal examination. 4. Severe azotemia, likely due to gastrointestinal bleed, status post renal transplant, followed by Dr. Gama, who is psychiatric np. 5. Diabetes. 6. Obesity. 7. History of CVA. 8. History of cholecystectomy. Subjective Subjective Alert in NAD. No CP or SOB. RN at bedside. Constantly asking for water. Just had PRBC transfusion. Objective Last 24 Hour Vital Signs Date Time Temp Pulse Resp B/P (MAP) Pulse Ox O2 Delivery O2 Flow Rate FiO2 06/03/19 12:00 98.9 86 28 136/67 (90) 90 06/03/19 12:00 Nasal Cannula 3.0 Non-Rebreather 3.0 Nasal Cannula 06/03/19 12:00 86 06/03/19 11:48 99.2 06/03/19 09:40 99.2 06/03/19 09:08 96 148/63 06/03/19 08:00 99.2 96 32 148/63 (91) 96 06/03/19 08:00 96 06/03/19 08:00 Nasal Cannula 3.0 Nasal Cannula 3.0 Nasal Cannula 3.0 06/03/19 07:26 94 Nasal Cannula 4.0 36 06/03/19 04:00 97.7 93 21 146/62 (90) 98 06/03/19 04:00 Nasal Cannula 3.0 Nasal Cannula 3.0 Nasal Cannula 3.0 06/03/19 03:57 94 06/03/19 00:00 97.4 83 20 141/68 (92) 98 06/03/19 00:00 Nasal Cannula 3.0 Nasal Cannula 3.0 Nasal Cannula 3.0 06/02/19 23:24 93 06/02/19 22:05 89 135/69 06/02/19 21:05 96 Nasal Cannula 4.0 36 06/02/19 20:00 97.2 85 19 132/61 (84) 99 06/02/19 20:00 Nasal Cannula 3.0 Nasal Cannula 3.0 Nasal Cannula 3.0 06/02/19 19:36 78 06/02/19 17:02 98.3 06/02/19 16:04 77 06/02/19 16:00 98.3 74 17 114/54 (74) 97 06/02/19 16:00 Nasal Cannula 3.0 Nasal Cannula 3.0 Nasal Cannula 3.0 Intake and Output 06/02/19 06/03/19 19:00 07:00 Intake Total 520 ml Output Total 900 ml 1100 ml Balance -380 ml -1100 ml Intake Oral 360 ml IV Total 160 ml Output Urine Total 900 ml 1100 ml Laboratory Tests Test 06/02/19 18:45 06/03/19 05:35 06/03/19 05:38 06/03/19 08:30 White Blood Count 8.1 K/UL (4.8-10.8) 7.8 K/UL (4.8-10.8) Red Blood Count 1.92 M/UL (4.20-5.40) L 2.19 M/UL (4.20-5.40) L Hemoglobin 6.0 G/DL (12.0-16.0) *L 6.5 G/DL (12.0-16.0) *L Hematocrit 17.4 % (37.0-47.0) L 19.8 % (37.0-47.0) L Mean Corpuscular Volume 90 FL (80-99) 91 FL (80-99) Mean Corpuscular Hemoglobin 31.0 PG (27.0-31.0) 29.7 PG (27.0-31.0) Mean Corpuscular Hemoglobin Concent 34.3 G/DL (32.0-36.0) 32.8 G/DL (32.0-36.0) Red Cell Distribution Width 14.1 % (11.6-14.8) 15.3 % (11.6-14.8) H Platelet Count 125 K/UL (150-450) L 117 K/UL (150-450) L Mean Platelet Volume 6.6 FL (6.5-10.1) 6.4 FL (6.5-10.1) L Neutrophils (%) (Auto) 88.9 % (45.0-75.0) H % (45.0-75.0) Lymphocytes (%) (Auto) 5.8 % (20.0-45.0) L % (20.0-45.0) Monocytes (%) (Auto) 4.7 % (1.0-10.0) % (1.0-10.0) Eosinophils (%) (Auto) 0.3 % (0.0-3.0) % (0.0-3.0) Basophils (%) (Auto) 0.2 % (0.0-2.0) % (0.0-2.0) Differential Total Cells Counted 100 100 Neutrophils % (Manual) 96 % (45-75) H 90 % (45-75) H Lymphocytes % (Manual) 4 % (20-45) L 6 % (20-45) L Monocytes % (Manual) 0 % (1-10) L 4 % (1-10) Eosinophils % (Manual) 0 % (0-3) 0 % (0-3) Basophils % (Manual) 0 % (0-2) 0 % (0-2) Band Neutrophils 0 % (0-8) 0 % (0-8) Platelet Estimate Decreased L Decreased L Platelet Morphology Normal Normal Polychromasia 1+ 1+ Anisocytosis 1+ 1+ Hypochromasia 1+ Sodium Level 143 MMOL/L (136-145) Potassium Level 3.9 MMOL/L (3.5-5.1) Chloride Level 113 MMOL/L (98-107) H Carbon Dioxide Level 19 MMOL/L (21-32) L Anion Gap 11 mmol/L (5-15) Blood Urea Nitrogen 60 mg/dL (7-18) H Creatinine 1.1 MG/DL (0.55-1.30) Estimat Glomerular Filtration Rate mL/min (>60) Glucose Level 200 MG/DL (74-106) H Calcium Level 8.5 MG/DL (8.5-10.1) Phosphorus Level 2.6 MG/DL (2.5-4.9) Magnesium Level 2.2 MG/DL (1.8-2.4) Total Bilirubin 1.3 MG/DL (0.2-1.0) H Direct Bilirubin 0.3 MG/DL (0.0-0.3) Aspartate Amino Transf (AST/SGOT) 9 U/L (15-37) L Alanine Aminotransferase (ALT/SGPT) 13 U/L (12-78) Alkaline Phosphatase 57 U/L (46-116) Troponin I 0.028 ng/mL (0.000-0.056) Total Protein 5.6 G/DL (6.4-8.2) L Albumin 2.9 G/DL (3.4-5.0) L Globulin 2.7 g/dL Albumin/Globulin Ratio 1.1 (1.0-2.7) D-Dimer Pending Pro-B-Type Natriuretic Peptide 45524 pg/mL (0-125) H Uric Acid 9.8 MG/DL (2.6-7.2) H Test 06/03/19 14:27 Arterial Blood pH 7.305 (7.350-7.450) Arterial Blood Partial Pressure CO2 38.3 mmHg (35.0-45.0) Arterial Blood Partial Pressure O2 107.9 mmHg (75.0-100.0) H Arterial Blood HCO3 18.6 mmol/L (22.0-26.0) L Arterial Blood Oxygen Saturation 96.9 % (95-100) Arterial Blood Base Excess 7.1 (-2-2) H Rodolfo Test Positive Microbiology Date/Time Source Procedure Growth Status 05/31/19 19:00 Nasal Nares Right MRSA Culture - Final NO METHICILLIN RESISTANT STAPH AUREUS... Complete 05/31/19 19:00 Rectum - Final NO CARBAPENEM-RESISTANT ENTEROBACTERI... Complete 05/31/19 19:00 Rectum VRE Culture - Final Enterococcus Faecalis - Vre Complete Objective HEAD AND NECK: No JVD. LUNGS: Clear. CARDIOVASCULAR: Regular S1 and S2 with no gallop. ABDOMEN: Soft. EXTREMITIES: Trace pitting edema. Anderson Reddy MD Jun 03, 2019 16:04
--- NOTE | 2019-06-03 16:40 | NUR ---
NURSE NOTES: blood transfusion completed, no reaction, vital signs stable, pt not stable to go to CT, dr. Gaffney aware.
--- NOTE | 2019-06-03 19:00 | Consultation ---
DATE OF CONSULTATION: 06/03/2019 PULMONARY CONSULTATION CONSULTING PHYSICIAN: Jose Miranda M.D. REFERRING PHYSICIAN: Cristian Zambrano M.D. REASON FOR CONSULTATION: Respiratory failure. HISTORY OF PRESENT ILLNESS: The patient is a 69-year-old female with a history of obstructive uropathy and CKD status post cadaveric transplant x2, CAD, atrial fibrillation, hypertension, CHF, pulmonary hypertension, diabetes, carotic stenosis, and prior CVA, who initially presented with left leg pain. She had no fall or trauma. She was seen and evaluated, was hypoxemic. She presented with shortness of breath earlier in the month, but signed out AMA and went to [facility]. She was treated for decompensated heart failure there. She also had PARAMJIT secondary to Toradol, but her creatinine returned to baseline. She had an endoscopy a few months ago. Here in the ER, she was noted to be markedly anemic with a hemoglobin of 4.9 and uremia. The patient has since had an endoscopy, which was unrevealing for source of bleeding. She is getting CT of the abdomen and pelvis today and further blood draws. She was initially treated with BiPAP, but she has been refusing the BiPAP. She was saturating well on nasal cannula 2 to 3 liters, but today she became more hypoxemic requiring a non-rebreather facemask. Her last blood gas from the was 7.29/45/__/. As stated, she is getting PRBCs today. The patient herself notes shortness of breath. Denies cough. Denies wheezing. Denies hemoptysis. No fevers, chills, chest pain, or other complaints. PAST MEDICAL HISTORY: 1. End-stage renal disease secondary to obstructive uropathy, status post cadaveric transplant x2. 2. CAD. 3. AFib. 4. Hypertension. 5. CHF with diastolic dysfunction. 6. Diabetes. 7. Carotid stenosis. 8. Prior CVA. 9. Prior cholecystectomy. ALLERGIES: No known drug allergies. MEDICATIONS: Prior to admission medications reviewed. Current medications reviewed. SOCIAL HISTORY: She denies tobacco, alcohol, or drug use. FAMILY HISTORY: Noncontributory. REVIEW OF SYSTEMS: Negative other than history of present illness. PHYSICAL EXAMINATION: VITAL SIGNS: Temperature 99.2, pulse 96, blood pressure 140/60, and respiratory rate 32. Saturating 98% on non-rebreather mask. GENERAL: She is an obese female, in no acute distress. Awake, alert, and oriented x3. HEENT: Normocephalic and atraumatic. Oropharynx is clear with moist mucous membranes. NECK: Supple. No lymphadenopathy or JVD. CHEST: Bibasilar rales, scattered coarse. HEART: Regular rate and rhythm. ABDOMEN: Soft, nontender, and nondistended. EXTREMITIES: No cyanosis or clubbing. There is 1+ edema. ANCILLARY DATA: ABG from May 31, 7./45/__/. CBC, white count 7.8, hemoglobin 6.5, and platelet count 117,000. INR 1.2. Sodium 142, potassium 3.9, chloride 113, bicarbonate 19, gap 11, BUN 60, creatinine 1.1. Glucose 200. Uric acid 9.8. Urinalysis, no eos seen. Cultures no growth so far. Chest x-ray from admission showed a left-sided pleural effusion and pulmonary edema. Duplex ultrasound from the admission showed no evidence of DVT. Echocardiogram from presentation from the showed an LVEF of 65%, mild left LVH, no collapse of IVC, normal pulmonic valve and tricuspid valve. PA systolic pressure of 90 with moderate to severe TR. ASSESSMENT: The patient is a 69-year-old female with a history of end-stage renal disease secondary to presumed obstructive uropathy, status post cadaveric transplant x2, presenting with acute anemia presumed to be secondary to gastrointestinal bleed, though her endoscopy was unrevealing. She is progressively hypoxemic likely secondary to decompensated heart failure. Unfortunately, I's and O's have not been managed, but her initial chest x-ray on presentation was suggestive of pulmonary edema with an effusion. We will repeat an x-ray as well as a BNP, but I suspect that the patient will require some diuresis. I will get a D-dimer to rule out venous thromboembolism as well. We will check a repeat ABG to assess baseline gas exchange and I will write for p.r.n. BiPAP. PROBLEM LIST: 1. Acute hypoxemic and hypercapnic respiratory failure. 2. Congestive heart failure with diastolic dysfunction, valvular heart disease, and pulmonary hypertension. 3. 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 4. History of obstructive uropathy. 5. Likely acute on chronic anemia, status post negative EGD, still with suspicion for gastrointestinal source of bleeding. 6. Multiple medical problems: Diabetes, hypertension, congestive heart failure with preserved ejection fraction, paroxysmal atrial fibrillation, history of carotid stenosis, and prior CVA. TREATMENT PLAN: 1. Optimize pulmonary hygiene/mobilize as tolerated. 2. Titrate down FiO2 to keep saturations greater than 90%. 3. BiPAP as needed and nightly. Continue current settings with IPAP of 15, EPAP of 5. 4. Check an ABG to assess baseline gas exchange. 5. P.r.n. DuoNebs. 6. Monitor volumes and renal function, I would consider more aggressive diuresis. We will discuss with team. 7. Monitor H and H, transfuse as needed. 8. Follow up GI records, consider colonoscopy and WCE. Follow-up CT abdomen and pelvis. 9. Aspiration precautions. 10. DVT prophylaxis, SCDs. 11. The patient is a Full Code, continue to discuss goals of care. Dr. Zambrano, thank you for allowing me to assist in the care of the patient. If I may be of any assistance, please do not hesitate to ask. Jose Miranda M.D. DR: ADOLPH JOB#: [id number] CC:
--- NOTE | 2019-06-03 19:29 | NUR ---
HAND-OFF: Report given to TANYA STERLING, no distress at this time.
--- NOTE | 2019-06-03 19:30 | NUR ---
NURSE NOTES: Received pt from ASHER Montez. Pt is AAOX3 with forgetfulness, vss, no acute distress, and on data modeler. Pt on non-rebreather at 100% saturating at 98%, full liquid diet. Pt keeps taking off mask with family member at bedside. Left forearm 18g and Lt/Rt upper arm AV-shunt (dialysis) non-functioning. Bed at its lowest position, call light in reach and x3 bed and rails are up.
[2019-06-03 20:00] VITALS: BP 134/63
--- NOTE | 2019-06-03 20:48 | NUR ---
NURSE NOTES: Denisa from lab called to report lab could not be drawn due to AV shunt, difficult to draw on swollen right arm and IV running on left. IV was turned off in order to draw left arm. Will call Lab [id number] to redraw.
[2019-06-03] MEDS: Atorvastatin 20mg tab ORAL SCH (21:16)
--- NOTE | 2019-06-03 21:20 | NUR ---
NURSE NOTES: Labs completed. IV turned back on.
[2019-06-03 21:43] LABS: HEMOGLOBIN 7.4 G/DL (12.0-16.0); MEAN CORPUSCULAR VOLUME 90 FL (80-99); PLATELET COUNT 112 K/UL (150-450); RED BLOOD COUNT 2.44 M/UL (4.20-5.40); RED CELL DISTRIBUTION WIDTH 14.9 % (11.6-14.8); WHITE BLOOD COUNT 7.1 K/UL (4.8-10.8)
[2019-06-03] MEDS: LORazepam 1mg tab ORAL PRN (23:06)
[2019-06-04] VITALS: BP 125/65
[2019-06-04 03:41] VITALS: BP 107/62
[2019-06-04 05:18] LABS: HEMATOCRIT 20.6 % (37.0-47.0); MEAN CORPUSCULAR VOLUME 91 FL (80-99); PLATELET COUNT 105 K/UL (150-450); RED BLOOD COUNT 2.26 M/UL (4.20-5.40); RED CELL DISTRIBUTION WIDTH 14.6 % (11.6-14.8); WHITE BLOOD COUNT 6.1 K/UL (4.8-10.8)
[2019-06-04 05:52] LABS: ALANINE AMINOTRANSFERASE 19 U/L (12-78); ALBUMIN 2.5 G/DL (3.4-5.0); ALBUMIN/GLOBULIN RATIO 0.9 (1.0-2.7); ALKALINE PHOSPHATASE 56 U/L (46-116); ANION GAP 7 mmol/L (5-15); ASPARTATE AMINO TRANSFERASE 13 U/L (15-37); BILIRUBIN,TOTAL 1.5 MG/DL (0.2-1.0); BLOOD UREA NITROGEN 42 mg/dL (7-18); CALCIUM 8.3 MG/DL (8.5-10.1); CARBON DIOXIDE 23 MMOL/L (21-32); CHLORIDE 113 MMOL/L (98-107); CREATININE 1.2 MG/DL (0.55-1.30); PHOSPHORUS 2.9 MG/DL (2.5-4.9); POTASSIUM 3.8 MMOL/L (3.5-5.1); SODIUM 143 MMOL/L (136-145)
[2019-06-04 06:01] LABS: BILIRUBIN,DIRECT 0.5 MG/DL (0.0-0.3)
[2019-06-04 06:04] LABS: HEMOGLOBIN 6.9 G/DL (12.0-16.0)
--- NOTE | 2019-06-04 06:30 | NUR ---
HAND-OFF: Report given to ASHER Donovan.
[2019-06-04] MEDS: LORazepam 1mg tab ORAL PRN (06:41)
--- NOTE | 2019-06-04 07:20 | NUR ---
NURSE NOTES: Received report from ASHER Alas. The patient is agitated, combative, and pulling out device including non rebreather mask. The patient has labored and abdominal breathing and O2 saturation drops when the patient removes non rebreather mask. The patient's bed in the lowest position, call light in reach, and fall, aspiration, and seizure precaution reinforced. IV site L FA 18G intact and patent. Spaulding intact and draining well. Will continue plan of care.
[2019-06-04] MEDS: NovoLOG Insulin Flexpen SUBQ SCH ×4 (07:25→21:00)
[2019-06-04 08:00] VITALS: BP 125/64
--- NOTE | 2019-06-04 08:25 | NUR ---
NURSE NOTES: Dr. Zambrano at the bedside assessed the patient. Dr. Zambrano ordered the patient to be transferred to [facility] for continuous Bipap for oxygen therapy. For agitation and the behavior of removing device, Dr. Zambrano ordered bilateral soft wrist restraints, and the son agreed for non-behavioral bilateral soft wrist restraints. Dr. Zambrano hold for blood transfusion but ordered to get CT w/ and w/o abdomen to be done as soon as possible. Dr. Zambrano consulted Dr. Nj for toe fracture. Notified the charge nurse regarding stat transfer order of the patient to [facility]. Will continue plan of care while awaiting for [facility] room.
[2019-06-04] MEDS: Pantoprazole Inj IVP SCH ×2 (09:08→20:45)
[2019-06-04] MEDS: Mycophenolate 250mg cap ORAL SCH ×2 (09:09→17:15)
[2019-06-04] MEDS: Lactulose 10gm/15ml UDC ORAL SCH ×2 (09:09→17:16)
[2019-06-04] MEDS: Docusate 100mg cap ORAL SCH ×2 (09:09→17:16)
[2019-06-04] MEDS: Carvedilol 25mg Tab ORAL SCH ×2 (09:09→20:44)
--- NOTE | 2019-06-04 09:32 | General Progress Note ---
Assessment/Plan Problem List: (1) Severe anemia ICD Codes: D64.9 - Anemia, unspecified SNOMED: 268759343 (2) DMII (diabetes mellitus, type 2) ICD Codes: E11.9 - Type 2 diabetes mellitus without complications SNOMED: 78985612 (3) Acute renal failure ICD Codes: N17.9 - Acute kidney failure, unspecified SNOMED: 33063684 (4) GI bleed ICD Codes: K92.2 - Gastrointestinal hemorrhage, unspecified SNOMED: 98044282 (5) Toe fracture, left ICD Codes: S92.912A - Unspecified fracture of left toe(s), initial encounter for closed fracture SNOMED: 21274821 (6) Contusion ICD Codes: T14.8 - Other injury of unspecified body region SNOMED: 229907044 Status: deteriorating Assessment/Plan: 69 year old female, with acute GI bleed likely upper. 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 IV PPI -GI consult appreciated, s/p EGD, no source of bleeding. No stool for occult blood yet. ?retroperitoneal bleed. For CT abdomen pelvis PENDING -Check stool for occult blood -bipap prn, o2 via nc, keep sats >92% , check ABG -Immunosuppression per nephrology consult -Ortho consult once hemodynamically more stable -Pain control, DC Dilaudid and ativan orders due to lethargy -PCP: Myra garcias, envelope stuffer: Bishop Villar -code: full code -vte ppx: SCD boots I spent 40 minutes on this patient's case, and 20 mins dedicated to counselling and care coordination. case d/w consultants and patient's pcp Dr. Villar. I spent an extra 31 minutes extended time. I spoke to PCP myra Garcias and outside envelope stuffer regarding transferring the patient to [facility]. She will be placed on transfer list. BIJAN Beasley informed to fax face sheet. case d/w with son Fracisco at bedside at length. his number is [phone] if he needs to be reached. time of this note may not reflect time of encounter. Subjective Date patient seen: Jun 04, 2019 ROS Limited/Unobtainable: Yes Allergies: Coded Allergies: No Known Allergies (Unverified , 06/26/17) Subjective Patient transferred to telemetry without my permission overnight. She received ativan and is very lethargic. She is on high flow oxygen. jenae Yap is at bedside. CT abdomen pelvis ordered yesterday morning however not done, it wad no communicated with me why it was not done. Her hemoglobin has dropped again. Per nurse last BM on . no obvious signs of bleeding. vitals stable. ROS unobtainable from patient due to lethargy. Objective Last 24 Hour Vital Signs Date Time Temp Pulse Resp B/P (MAP) Pulse Ox O2 Delivery O2 Flow Rate FiO2 06/04/19 09:09 85 125/64 06/04/19 05:00 89 21 100 Facial 100 06/04/19 04:00 Bi-pap Non-Rebreather Bi-pap 06/04/19 04:00 69 06/04/19 03:41 98.6 68 23 107/62 (77) 98 06/04/19 03:20 91 21 99 Facial 100 06/04/19 01:25 98 23 99 Facial 100 06/04/19 00:00 98.2 70 24 125/65 (85) 97 06/04/19 00:00 Bi-pap Non-Rebreather Bi-pap 06/04/19 00:00 77 06/03/19 23:26 98.2 06/03/19 21:26 76 134/63 06/03/19 20:00 98.2 76 25 134/63 (86) 98 06/03/19 20:00 80 06/03/19 20:00 Non-Rebreather 15.0 Non-Rebreather 15.0 Non-Rebreather 06/03/19 19:50 97 Nasal Cannula 4.0 36 06/03/19 17:49 98.5 06/03/19 16:00 78 06/03/19 16:00 Nasal Cannula 3.0 Non-Rebreather 3.0 Nasal Cannula 06/03/19 16:00 98.5 75 28 127/60 (82) 97 06/03/19 12:00 98.9 86 28 136/67 (90) 90 06/03/19 12:00 Nasal Cannula 3.0 Non-Rebreather 3.0 Nasal Cannula 06/03/19 12:00 86 06/03/19 11:48 99.2 Intake and Output 06/03/19 06/04/19 19:00 07:00 Intake Total 780 ml Output Total 1100 ml 700 ml Balance -320 ml -700 ml Intake Oral 500 ml Blood Product 280 ml Output Urine Total 1100 ml 700 ml # Voids 1 Laboratory Tests 06/03/19 14:27: Arterial Blood pH 7.305L, Arterial Blood Partial Pressure CO2 38.3, Arterial Blood Partial Pressure O2 107.9H, Arterial Blood HCO3 18.6L, Arterial Blood Oxygen Saturation 96.9, Arterial Blood Base Excess 7.1H, Rodolfo Test Positive 06/03/19 21:05: White Blood Count 7.1, Red Blood Count 2.44L, Hemoglobin 7.4L, Hematocrit 22.0L , Mean Corpuscular Volume 90, Mean Corpuscular Hemoglobin 30.5, Mean Corpuscular Hemoglobin Concent 33.7, Red Cell Distribution Width 14.9H, Platelet Count 112L, Mean Platelet Volume 7.2, Neutrophils (%) (Auto) , Lymphocytes (%) (Auto) , Monocytes (%) (Auto) , Eosinophils (%) (Auto) , Basophils (%) (Auto) , Differential Total Cells Counted 100, Neutrophils % ( Manual) 87H, Lymphocytes % (Manual) 7L, Monocytes % (Manual) 5, Eosinophils % ( Manual) 0, Basophils % (Manual) 1, Band Neutrophils 0, Platelet Estimate DecreasedL, Platelet Morphology Normal, Polychromasia 1+, Hypochromasia 1+, Anisocytosis 1+, D-Dimer 1.18H 06/04/19 03:50: White Blood Count 6.1, Red Blood Count 2.26L, Hemoglobin 6.9*L, Hematocrit 20.6L , Mean Corpuscular Volume 91, Mean Corpuscular Hemoglobin 30.4, Mean Corpuscular Hemoglobin Concent 33.4, Red Cell Distribution Width 14.6, Platelet Count 105L, Mean Platelet Volume 5.9L, Neutrophils (%) (Auto) , Lymphocytes (%) (Auto) , Monocytes (%) (Auto) , Eosinophils (%) (Auto) , Basophils (%) (Auto) , Differential Total Cells Counted 100, Neutrophils % (Manual) 81H, Lymphocytes % (Manual) 11L, Monocytes % (Manual) 8, Eosinophils % (Manual) 0, Basophils % ( Manual) 0, Band Neutrophils 0, Platelet Estimate DecreasedL, Platelet Morphology Normal, Hypochromasia 3+, Spherocytes 2+, Sodium Level 143, Potassium Level 3.8, Chloride Level 113H, Carbon Dioxide Level 23, Anion Gap 7, Blood Urea Nitrogen 42H, Creatinine 1.2, Estimat Glomerular Filtration Rate , Glucose Level 160H, Uric Acid 9.5H, Calcium Level 8.3L, Phosphorus Level 2.9, Magnesium Level 2.0, Total Bilirubin 1.5H, Direct Bilirubin 0.5H, Aspartate Amino Transf (AST/SGOT) 13L, Alanine Aminotransferase (ALT/SGPT) 19, Alkaline Phosphatase 56, C-Reactive Protein, Quantitative 16.7H, Pro-B-Type Natriuretic Peptide 60806B, Total Protein 5.3L, Albumin 2.5L, Globulin 2.8, Albumin/ Globulin Ratio 0.9L 06/04/19 06:00: Urine Eosinophils Few Height (Feet): 5 Height (Inches): 2.00 Weight (Pounds): 178 General Appearance: moderate distress EENT: PERRL/EOMI Neck: supple Cardiovascular: normal peripheral pulses, normal rate, no gallop/murmur Respiratory/Chest: lungs clear, respiratory distress, accessory muscle use Abdomen: soft, tender Edema: trace edema Neurologic: unresponsive Cristian Zambrano M.D. Jun 04, 2019 09:32
--- NOTE | 2019-06-04 09:39 | Diagnostic Imaging Report ---
. Indication: Shortness of breath Technique: One view of the chest Comparison: 05/31/2019 Findings: There is increased airspace disease in the right lung, now diffuse. There is increased pleural fluid bilaterally. Parenchymal disease in the left lung appears similar to the previous exam. A stent, presumably esophageal, is again demonstrated in the mid lower thorax Impression: Bilateral infiltrates versus edema, worse on the right and stable on the left Increasing bilateral pleural effusions
--- NOTE | 2019-06-04 09:49 | Nephrology Progress Note ---
Assessment/Plan Problem List: (1) Acute renal failure Assessment: Cr lowering (2) DMII (diabetes mellitus, type 2) (3) Severe anemia (4) Kidney transplant status Assessment Severe Anemia transfused 5 units Acute renal failure- Cr down to 1.1 from 1.4 from 1.6 s/p Kidney Tx DM Obese Hypotension h/o Obstructive uropathy CAD At fib Carotid Stenosis CVA s/p cholecystectomy Plan doing poorly renal parameters stable ABG Hold mind altering meds CT abd pending Spaulding Fluid challenge as needed more transfusion for low H&H IV Iron once monitor renal parameters Keep BP and BS in check ECHO RESULTS?? 65% Per orders Subjective ROS Limited/Unobtainable: Yes Objective Objective Last 24 Hour Vital Signs Date Time Temp Pulse Resp B/P (MAP) Pulse Ox O2 Delivery O2 Flow Rate FiO2 06/04/19 09:09 85 125/64 06/04/19 05:00 89 21 100 Facial 100 06/04/19 04:00 Bi-pap Non-Rebreather Bi-pap 06/04/19 04:00 69 06/04/19 03:41 98.6 68 23 107/62 (77) 98 06/04/19 03:20 91 21 99 Facial 100 06/04/19 01:25 98 23 99 Facial 100 06/04/19 00:00 98.2 70 24 125/65 (85) 97 06/04/19 00:00 Bi-pap Non-Rebreather Bi-pap 06/04/19 00:00 77 06/03/19 23:26 98.2 06/03/19 21:26 76 134/63 06/03/19 20:00 98.2 76 25 134/63 (86) 98 06/03/19 20:00 80 06/03/19 20:00 Non-Rebreather 15.0 Non-Rebreather 15.0 Non-Rebreather 06/03/19 19:50 97 Nasal Cannula 4.0 36 06/03/19 17:49 98.5 06/03/19 16:00 78 06/03/19 16:00 Nasal Cannula 3.0 Non-Rebreather 3.0 Nasal Cannula 06/03/19 16:00 98.5 75 28 127/60 (82) 97 06/03/19 12:00 98.9 86 28 136/67 (90) 90 06/03/19 12:00 Nasal Cannula 3.0 Non-Rebreather 3.0 Nasal Cannula 06/03/19 12:00 86 06/03/19 11:48 99.2 Intake and Output 06/03/19 06/04/19 18:59 06:59 Intake Total 780 ml Output Total 1100 ml 700 ml Balance -320 ml -700 ml Intake Oral 500 ml Blood Product 280 ml Output Urine Total 1100 ml 700 ml # Voids 1 Laboratory Tests 06/03/19 14:27: Arterial Blood pH 7.305L, Arterial Blood Partial Pressure CO2 38.3, Arterial Blood Partial Pressure O2 107.9H, Arterial Blood HCO3 18.6L, Arterial Blood Oxygen Saturation 96.9, Arterial Blood Base Excess 7.1H, Rodolfo Test Positive 06/03/19 21:05: White Blood Count 7.1, Red Blood Count 2.44L, Hemoglobin 7.4L, Hematocrit 22.0L , Mean Corpuscular Volume 90, Mean Corpuscular Hemoglobin 30.5, Mean Corpuscular Hemoglobin Concent 33.7, Red Cell Distribution Width 14.9H, Platelet Count 112L, Mean Platelet Volume 7.2, Neutrophils (%) (Auto) , Lymphocytes (%) (Auto) , Monocytes (%) (Auto) , Eosinophils (%) (Auto) , Basophils (%) (Auto) , Differential Total Cells Counted 100, Neutrophils % ( Manual) 87H, Lymphocytes % (Manual) 7L, Monocytes % (Manual) 5, Eosinophils % ( Manual) 0, Basophils % (Manual) 1, Band Neutrophils 0, Platelet Estimate DecreasedL, Platelet Morphology Normal, Polychromasia 1+, Hypochromasia 1+, Anisocytosis 1+, D-Dimer 1.18H 06/04/19 03:50: White Blood Count 6.1, Red Blood Count 2.26L, Hemoglobin 6.9*L, Hematocrit 20.6L , Mean Corpuscular Volume 91, Mean Corpuscular Hemoglobin 30.4, Mean Corpuscular Hemoglobin Concent 33.4, Red Cell Distribution Width 14.6, Platelet Count 105L, Mean Platelet Volume 5.9L, Neutrophils (%) (Auto) , Lymphocytes (%) (Auto) , Monocytes (%) (Auto) , Eosinophils (%) (Auto) , Basophils (%) (Auto) , Differential Total Cells Counted 100, Neutrophils % (Manual) 81H, Lymphocytes % (Manual) 11L, Monocytes % (Manual) 8, Eosinophils % (Manual) 0, Basophils % ( Manual) 0, Band Neutrophils 0, Platelet Estimate DecreasedL, Platelet Morphology Normal, Hypochromasia 3+, Spherocytes 2+, Sodium Level 143, Potassium Level 3.8, Chloride Level 113H, Carbon Dioxide Level 23, Anion Gap 7, Blood Urea Nitrogen 42H, Creatinine 1.2, Estimat Glomerular Filtration Rate , Glucose Level 160H, Uric Acid 9.5H, Calcium Level 8.3L, Phosphorus Level 2.9, Magnesium Level 2.0, Total Bilirubin 1.5H, Direct Bilirubin 0.5H, Aspartate Amino Transf (AST/SGOT) 13L, Alanine Aminotransferase (ALT/SGPT) 19, Alkaline Phosphatase 56, C-Reactive Protein, Quantitative 16.7H, Pro-B-Type Natriuretic Peptide 36064F, Total Protein 5.3L, Albumin 2.5L, Globulin 2.8, Albumin/ Globulin Ratio 0.9L 06/04/19 06:00: Urine Eosinophils Few Height (Feet): 5 Height (Inches): 2.00 Weight (Pounds): 178 General Appearance: lethargic, mild distress Cardiovascular: tachycardia Respiratory/Chest: decreased breath sounds Abdomen: distended Joaquim Gama MD Jun 04, 2019 09:49
--- NOTE | 2019-06-04 10:05 | NUR ---
NURSE NOTES: Received report Jonathan Jean patient lethargic,on restraints,I discontinued,on BIPAP,with franco cathter,urine sediments,pale,head ,elevated,bed low,close watch,will transfer to [facility]-close to nurses station,saturation 100 %
--- NOTE | 2019-06-04 10:20 | NUR ---
NURSE NOTES: The patient got safely transferred to [facility]. Comprehensive report given to ASHER Menjivar @ [facility] as receiving nurse. The patient's bed in the lowest position, call light in reach, and fall and aspiration precaution reinforced. IV site intact and patent. On Bipap for oxygen therapy as ordered. Spaulding intact and draining well. Endorsed plan of care.
--- NOTE | 2019-06-04 10:27 | General Progress Note ---
Assessment/Plan Problem List: (1) GI bleed ICD Codes: K92.2 - Gastrointestinal hemorrhage, unspecified SNOMED: 58048711 (2) Pneumonia ICD Codes: J18.9 - Pneumonia, unspecified organism SNOMED: 279662190 (3) Upper respiratory symptom ICD Codes: R09.89 - Other specified symptoms and signs involving the circulatory and respiratory systems SNOMED: 797872474 (4) Contusion ICD Codes: T14.8 - Other injury of unspecified body region SNOMED: 550869856 Status: stable Assessment/Plan: s/p EGD no obvious active GIB fu H&H transfuse to keep hgb above 7 stool ob bowel regimen CT of abd and pelvic>>> pending Subjective ROS Limited/Unobtainable: No Allergies: Coded Allergies: No Known Allergies (Unverified , 06/26/17) Objective Last 24 Hour Vital Signs Date Time Temp Pulse Resp B/P (MAP) Pulse Ox O2 Delivery O2 Flow Rate FiO2 06/04/19 09:09 85 125/64 06/04/19 07:00 98 Nasal Cannula 4.0 36 06/04/19 05:00 89 21 100 Facial 100 06/04/19 04:00 Bi-pap Non-Rebreather Bi-pap 06/04/19 04:00 69 06/04/19 03:41 98.6 68 23 107/62 (77) 98 06/04/19 03:20 91 21 99 Facial 100 06/04/19 01:25 98 23 99 Facial 100 06/04/19 00:00 98.2 70 24 125/65 (85) 97 06/04/19 00:00 Bi-pap Non-Rebreather Bi-pap 06/04/19 00:00 77 06/03/19 23:26 98.2 06/03/19 21:26 76 134/63 06/03/19 20:00 98.2 76 25 134/63 (86) 98 06/03/19 20:00 80 06/03/19 20:00 Non-Rebreather 15.0 Non-Rebreather 15.0 Non-Rebreather 06/03/19 19:50 97 Nasal Cannula 4.0 36 06/03/19 17:49 98.5 06/03/19 16:00 78 06/03/19 16:00 Nasal Cannula 3.0 Non-Rebreather 3.0 Nasal Cannula 06/03/19 16:00 98.5 75 28 127/60 (82) 97 06/03/19 12:00 98.9 86 28 136/67 (90) 90 06/03/19 12:00 Nasal Cannula 3.0 Non-Rebreather 3.0 Nasal Cannula 06/03/19 12:00 86 06/03/19 11:48 99.2 Intake and Output 06/03/19 06/04/19 19:00 07:00 Intake Total 780 ml Output Total 1100 ml 700 ml Balance -320 ml -700 ml Intake Oral 500 ml Blood Product 280 ml Output Urine Total 1100 ml 700 ml # Voids 1 Laboratory Tests 06/03/19 14:27: Arterial Blood pH 7.305L, Arterial Blood Partial Pressure CO2 38.3, Arterial Blood Partial Pressure O2 107.9H, Arterial Blood HCO3 18.6L, Arterial Blood Oxygen Saturation 96.9, Arterial Blood Base Excess 7.1H, Rodolfo Test Positive 06/03/19 21:05: White Blood Count 7.1, Red Blood Count 2.44L, Hemoglobin 7.4L, Hematocrit 22.0L , Mean Corpuscular Volume 90, Mean Corpuscular Hemoglobin 30.5, Mean Corpuscular Hemoglobin Concent 33.7, Red Cell Distribution Width 14.9H, Platelet Count 112L, Mean Platelet Volume 7.2, Neutrophils (%) (Auto) , Lymphocytes (%) (Auto) , Monocytes (%) (Auto) , Eosinophils (%) (Auto) , Basophils (%) (Auto) , Differential Total Cells Counted 100, Neutrophils % ( Manual) 87H, Lymphocytes % (Manual) 7L, Monocytes % (Manual) 5, Eosinophils % ( Manual) 0, Basophils % (Manual) 1, Band Neutrophils 0, Platelet Estimate DecreasedL, Platelet Morphology Normal, Polychromasia 1+, Hypochromasia 1+, Anisocytosis 1+, D-Dimer 1.18H 06/04/19 03:50: White Blood Count 6.1, Red Blood Count 2.26L, Hemoglobin 6.9*L, Hematocrit 20.6L , Mean Corpuscular Volume 91, Mean Corpuscular Hemoglobin 30.4, Mean Corpuscular Hemoglobin Concent 33.4, Red Cell Distribution Width 14.6, Platelet Count 105L, Mean Platelet Volume 5.9L, Neutrophils (%) (Auto) , Lymphocytes (%) (Auto) , Monocytes (%) (Auto) , Eosinophils (%) (Auto) , Basophils (%) (Auto) , Differential Total Cells Counted 100, Neutrophils % (Manual) 81H, Lymphocytes % (Manual) 11L, Monocytes % (Manual) 8, Eosinophils % (Manual) 0, Basophils % ( Manual) 0, Band Neutrophils 0, Platelet Estimate DecreasedL, Platelet Morphology Normal, Hypochromasia 3+, Spherocytes 2+, Sodium Level 143, Potassium Level 3.8, Chloride Level 113H, Carbon Dioxide Level 23, Anion Gap 7, Blood Urea Nitrogen 42H, Creatinine 1.2, Estimat Glomerular Filtration Rate , Glucose Level 160H, Uric Acid 9.5H, Calcium Level 8.3L, Phosphorus Level 2.9, Magnesium Level 2.0, Total Bilirubin 1.5H, Direct Bilirubin 0.5H, Aspartate Amino Transf (AST/SGOT) 13L, Alanine Aminotransferase (ALT/SGPT) 19, Alkaline Phosphatase 56, C-Reactive Protein, Quantitative 16.7H, Pro-B-Type Natriuretic Peptide 29749D, Total Protein 5.3L, Albumin 2.5L, Globulin 2.8, Albumin/ Globulin Ratio 0.9L 06/04/19 06:00: Urine Eosinophils Few Height (Feet): 5 Height (Inches): 2.00 Weight (Pounds): 178 General Appearance: lethargic EENT: PERRL/EOMI Neck: supple Cardiovascular: normal rate Respiratory/Chest: decreased breath sounds Abdomen: normal bowel sounds, non tender, soft Extremities: non-tender Anuj Gaffney MD Jun 04, 2019 10:27
[2019-06-04 10:59] VITALS: BP 127/55
--- NOTE | 2019-06-04 11:13 | NUR ---
RADIOLOGY DEPT. CHEST X-RAY DONE.-P.DYE
[2019-06-04] MEDS ORDERED: LORazepam 1mg tab ORAL PRN (11:30)
[2019-06-04] MEDS ORDERED: HYDROmorphone 1mg/ml Carpuject IVP PRN (11:30)
--- NOTE | 2019-06-04 13:18 | NUR ---
NURSE NOTES: patient restless,pulled BIPAP,replaced,desaturate without BIPAP 88 %,replaced restraints for safety,prevent pulling device
--- NOTE | 2019-06-04 13:32 | NUR ---
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 97.9 HR 75 RR 16 B/P 127/55 BIPAP 15/5 FIO2 45% H/H 6.9/20.6 BUN 42 BNP [id number] IS: PREDNISONE PROTONIX ALB HHN STEP DOWN STATUS
--- NOTE | 2019-06-04 13:52 | NUR ---
NURSE NOTES: Dr. Zambrano notified blood sugar 161,patient NPO-order not to cover
[2019-06-04] MEDS ORDERED: Albuterol/Ipratropium 3ml neb HHN PRN (14:15)
--- NOTE | 2019-06-04 14:17 | Pulmonology Progress Note ---
Assessment/Plan Problems: (1) Pneumonia (2) Acute renal failure (3) DMII (diabetes mellitus, type 2) (4) Severe anemia (5) Hypertension Assessment/Plan ASSESSMENT: The patient is a 69-year-old female with a history of end-stage renal disease secondary to presumed obstructive uropathy, status post cadaveric transplant x2, presenting with acute anemia presumed to be secondary to gastrointestinal bleed, though her endoscopy was unrevealing. She is progressively hypoxemic likely secondary to decompensated heart failure. Unfortunately, I's and O's have not been managed, but her initial chest x-ray on presentation was suggestive of pulmonary edema with an effusion. We will repeat an x-ray as well as a BNP, but I suspect that the patient will require some diuresis. I will get a D-dimer to rule out venous thromboembolism as well. We will check a repeat ABG to assess baseline gas exchange and I will write for p.r.n. BiPAP. PROBLEM LIST: 1. Acute hypoxemic and hypercapnic respiratory failure. 2. Congestive heart failure with diastolic dysfunction, valvular heart disease, and pulmonary hypertension. 3. 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 4. History of obstructive uropathy. 5. Likely acute on chronic anemia, status post negative EGD, still with suspicion for gastrointestinal source of bleeding. 6. Multiple medical problems: Diabetes, hypertension, congestive heart failure with preserved ejection fraction, paroxysmal atrial fibrillation, history of carotid stenosis, and prior CVA. TREATMENT PLAN: 1. Optimize pulmonary hygiene/mobilize as tolerated. 2. Titrate down FiO2 to keep saturations greater than 90%. 3. BiPAP as needed and nightly. Continue current settings with IPAP of 15, EPAP of 5. 4. Monitor gas exchange 5. P.r.n. DuoNebs. 6. Monitor volumes and renal function, diuresis as able 7. Monitor H and H, transfuse as needed. 8. Follow up GI recs, consider colonoscopy and WCE. Follow-up CTabdomen and pelvis. 9. Aspiration precautions. 10. DVT prophylaxis, SCDs. 11. The patient is a Full Code, continue to discuss goals of care. Subjective Allergies: Coded Allergies: No Known Allergies (Unverified , 06/26/17) Subjective TTF this am now back in [facility] lethargic on BiPAP Objective Last 24 Hour Vital Signs Date Time Temp Pulse Resp B/P (MAP) Pulse Ox O2 Delivery O2 Flow Rate FiO2 06/04/19 12:42 89 13 98 Facial 45 06/04/19 11:15 73 13 97 Facial 45 06/04/19 11:00 Bi-pap Bi-pap Bi-pap 06/04/19 10:59 97.9 75 16 127/55 (79) 100 06/04/19 10:00 73 2 98 Facial 45 06/04/19 09:09 85 125/64 06/04/19 07:00 98 Nasal Cannula 4.0 36 06/04/19 05:00 89 21 100 Facial 100 06/04/19 04:00 Bi-pap Non-Rebreather Bi-pap 06/04/19 04:00 69 06/04/19 03:41 98.6 68 23 107/62 (77) 98 06/04/19 03:20 91 21 99 Facial 100 06/04/19 01:25 98 23 99 Facial 100 06/04/19 00:00 98.2 70 24 125/65 (85) 97 06/04/19 00:00 Bi-pap Non-Rebreather Bi-pap 06/04/19 00:00 77 06/03/19 23:26 98.2 06/03/19 21:26 76 134/63 06/03/19 20:00 98.2 76 25 134/63 (86) 98 06/03/19 20:00 80 06/03/19 20:00 Non-Rebreather 15.0 Non-Rebreather 15.0 Non-Rebreather 06/03/19 19:50 97 Nasal Cannula 4.0 36 06/03/19 17:49 98.5 06/03/19 16:00 78 06/03/19 16:00 Nasal Cannula 3.0 Non-Rebreather 3.0 Nasal Cannula 06/03/19 16:00 98.5 75 28 127/60 (82) 97 Intake and Output 06/03/19 06/04/19 19:00 07:00 Intake Total 780 ml Output Total 1100 ml 700 ml Balance -320 ml -700 ml Intake Oral 500 ml Blood Product 280 ml Output Urine Total 1100 ml 700 ml # Voids 1 General Appearance: no acute distress, other - on BiPAP HEENT: normocephalic, atraumatic, anicteric, mucous membranes moist Respiratory/Chest: crackles/rales, rhonchi Cardiovascular: normal peripheral pulses, normal rate, regular rhythm Abdomen: normal bowel sounds, soft, non tender, no organomegaly, non distended Extremities: no cyanosis, no clubbing, other - trace Laboratory Tests 06/03/19 14:27: Arterial Blood pH 7.305L, Arterial Blood Partial Pressure CO2 38.3, Arterial Blood Partial Pressure O2 107.9H, Arterial Blood HCO3 18.6L, Arterial Blood Oxygen Saturation 96.9, Arterial Blood Base Excess 7.1H, Rodolfo Test Positive 06/03/19 21:05: White Blood Count 7.1, Red Blood Count 2.44L, Hemoglobin 7.4L, Hematocrit 22.0L , Mean Corpuscular Volume 90, Mean Corpuscular Hemoglobin 30.5, Mean Corpuscular Hemoglobin Concent 33.7, Red Cell Distribution Width 14.9H, Platelet Count 112L, Mean Platelet Volume 7.2, Neutrophils (%) (Auto) , Lymphocytes (%) (Auto) , Monocytes (%) (Auto) , Eosinophils (%) (Auto) , Basophils (%) (Auto) , Differential Total Cells Counted 100, Neutrophils % ( Manual) 87H, Lymphocytes % (Manual) 7L, Monocytes % (Manual) 5, Eosinophils % ( Manual) 0, Basophils % (Manual) 1, Band Neutrophils 0, Platelet Estimate DecreasedL, Platelet Morphology Normal, Polychromasia 1+, Hypochromasia 1+, Anisocytosis 1+, D-Dimer 1.18H 06/04/19 03:50: White Blood Count 6.1, Red Blood Count 2.26L, Hemoglobin 6.9*L, Hematocrit 20.6L , Mean Corpuscular Volume 91, Mean Corpuscular Hemoglobin 30.4, Mean Corpuscular Hemoglobin Concent 33.4, Red Cell Distribution Width 14.6, Platelet Count 105L, Mean Platelet Volume 5.9L, Neutrophils (%) (Auto) , Lymphocytes (%) (Auto) , Monocytes (%) (Auto) , Eosinophils (%) (Auto) , Basophils (%) (Auto) , Differential Total Cells Counted 100, Neutrophils % (Manual) 81H, Lymphocytes % (Manual) 11L, Monocytes % (Manual) 8, Eosinophils % (Manual) 0, Basophils % ( Manual) 0, Band Neutrophils 0, Platelet Estimate DecreasedL, Platelet Morphology Normal, Hypochromasia 3+, Spherocytes 2+, Sodium Level 143, Potassium Level 3.8, Chloride Level 113H, Carbon Dioxide Level 23, Anion Gap 7, Blood Urea Nitrogen 42H, Creatinine 1.2, Estimat Glomerular Filtration Rate , Glucose Level 160H, Uric Acid 9.5H, Calcium Level 8.3L, Phosphorus Level 2.9, Magnesium Level 2.0, Total Bilirubin 1.5H, Direct Bilirubin 0.5H, Aspartate Amino Transf (AST/SGOT) 13L, Alanine Aminotransferase (ALT/SGPT) 19, Alkaline Phosphatase 56, C-Reactive Protein, Quantitative 16.7H, Pro-B-Type Natriuretic Peptide 81704B, Total Protein 5.3L, Albumin 2.5L, Globulin 2.8, Albumin/ Globulin Ratio 0.9L 06/04/19 06:00: Urine Eosinophils Few 06/04/19 10:19: Arterial Blood pH 7.362, Arterial Blood Partial Pressure CO2 36.7, Arterial Blood Partial Pressure O2 92.9, Arterial Blood HCO3 20.4L, Arterial Blood Oxygen Saturation 96.3, Arterial Blood Base Excess -4.6L, Rodolfo Test Positive Current Medications Medications (Trade) Dose Ordered Sig/[place] Route PRN Reason Start Time Stop Time Status Last Admin Dose Admin Acetaminophen (Tylenol) 650 mg Q4H PRN ORAL T>100.5 06/04/19 14:15 06/30/19 18:14 Albuterol/ Ipratropium (Albuterol/ Ipratropium) 3 ml Q4H PRN HHN Shortness of Breath 06/04/19 14:15 06/05/19 18:14 Atorvastatin Calcium (Lipitor) 20 mg BEDTIME ORAL 06/04/19 21:00 07/01/19 20:59 Barium Sulfate (Readi-Cat 2) 450 ml NOW PRN ORAL Radiology Procedure 06/05/19 08:45 06/05/19 12:00 Barium Sulfate (Readi-Cat 2) 450 ml NOW PRN ORAL Radiology Procedure 06/04/19 12:30 06/05/19 12:27 Carvedilol (Coreg) 25 mg EVERY 12 HOURS ORAL 06/04/19 21:00 07/01/19 20:59 Dextrose (Dextrose 50%) 25 ml Q30M PRN IV Hypoglycemia 06/04/19 11:45 06/30/19 12:14 Dextrose (Dextrose 50%) 50 ml Q30M PRN IV Hypoglycemia 06/04/19 11:45 06/30/19 12:14 Docusate Sodium (Colace) 100 mg TWICE A DAY ORAL 06/04/19 18:00 07/01/19 18:14 Hydromorphone HCl (Dilaudid) 1 mg Q6H PRN IVP Moderate Pain (Pain Scale 4-6) 06/04/19 11:30 06/04/19 21:46 Insulin Aspart (NovoLOG) BEFORE MEALS AND HS SUBQ 06/04/19 11:30 06/30/19 16:29 Iohexol (OMNIPAQUE-300 100ml) 100 ml NOW PRN INJ Radiology Procedure 06/05/19 08:45 06/05/19 12:00 Lactulose (Cephulac) 10 gm BID ORAL 06/04/19 18:00 07/03/19 08:59 Mycophenolate Mofetil (Cellcept) 500 mg TWICE A DAY ORAL 06/04/19 18:00 07/01/19 18:14 Ondansetron HCl (Zofran) 4 mg Q6H PRN IVP Nausea & Vomiting 06/04/19 12:15 06/30/19 12:14 Pantoprazole (Protonix) 40 mg EVERY 12 HOURS IVP 06/04/19 21:00 07/01/19 20:59 Polyethylene Glycol (Miralax) 17 gm HSPRN PRN ORAL Constipation 06/04/19 21:00 06/30/19 20:59 Prednisone (predniSONE) 5 mg DAILY ORAL 06/05/19 09:00 07/01/19 08:59 Tacrolimus (Prograf) 2 mg EVERY 12 HOURS ORAL 06/04/19 21:00 06/30/19 20:59 Temazepam (RestoriL) 7.5 mg HSPRN PRN ORAL insomnia 06/04/19 21:00 06/09/19 20:59 Tramadol HCl (Ultram) 50 mg Q4H PRN ORAL Mild Pain (Pain Scale 1-3) 06/04/19 14:15 06/08/19 18:14 Jose Miranda MD Jun 04, 2019 14:16
--- NOTE | 2019-06-04 14:52 | Cardiac Electrophysiology PN ---
Assessment/Plan Assessment/Plan 1. Paroxysmal atrial fibrillation, in sinus rhythm. On Coreg 25 bid. Off anticoagulation in view of gastrointestinal bleed. 2. Inferolateral ischemia on the EKG due to severe anemia. EF 65% 3. Upper GI bleed with hemoglobin of 4.5. S/P 5 units of PRBC. Getting another PRBC today S/P EGD by Dr. Gaffney that showed gastritis and underwent biopsy. Otherwise normal upper gastrointestinal examination. 4. Severe azotemia, likely due to gastrointestinal bleed, status post renal transplant, followed by Dr. Gama, who is cell technician. 5. Diabetes. 6. Obesity. 7. History of CVA. 8. History of cholecystectomy. 9. Respiratory failure on BIPAP DW RN Subjective Subjective Had PRBC transfusion yesterday. Confused on BIPAP in restraints Objective Last 24 Hour Vital Signs Date Time Temp Pulse Resp B/P (MAP) Pulse Ox O2 Delivery O2 Flow Rate FiO2 06/04/19 12:42 89 13 98 Facial 45 06/04/19 11:47 73 06/04/19 11:15 73 13 97 Facial 45 06/04/19 11:00 Bi-pap Bi-pap Bi-pap 06/04/19 10:59 97.9 75 16 127/55 (79) 100 06/04/19 10:00 73 2 98 Facial 45 06/04/19 09:09 85 125/64 06/04/19 07:00 98 Nasal Cannula 4.0 36 06/04/19 05:00 89 21 100 Facial 100 06/04/19 04:00 Bi-pap Non-Rebreather Bi-pap 06/04/19 04:00 69 06/04/19 03:41 98.6 68 23 107/62 (77) 98 06/04/19 03:20 91 21 99 Facial 100 06/04/19 01:25 98 23 99 Facial 100 06/04/19 00:00 98.2 70 24 125/65 (85) 97 06/04/19 00:00 Bi-pap Non-Rebreather Bi-pap 06/04/19 00:00 77 06/03/19 23:26 98.2 06/03/19 21:26 76 134/63 06/03/19 20:00 98.2 76 25 134/63 (86) 98 06/03/19 20:00 80 06/03/19 20:00 Non-Rebreather 15.0 Non-Rebreather 15.0 Non-Rebreather 06/03/19 19:50 97 Nasal Cannula 4.0 36 06/03/19 17:49 98.5 06/03/19 16:00 78 06/03/19 16:00 Nasal Cannula 3.0 Non-Rebreather 3.0 Nasal Cannula 06/03/19 16:00 98.5 75 28 127/60 (82) 97 Intake and Output 06/03/19 06/04/19 19:00 07:00 Intake Total 780 ml Output Total 1100 ml 700 ml Balance -320 ml -700 ml Intake Oral 500 ml Blood Product 280 ml Output Urine Total 1100 ml 700 ml # Voids 1 Laboratory Tests Test 06/03/19 21:05 06/04/19 03:50 06/04/19 06:00 06/04/19 10:19 White Blood Count 7.1 K/UL (4.8-10.8) 6.1 K/UL (4.8-10.8) Red Blood Count 2.44 M/UL (4.20-5.40) L 2.26 M/UL (4.20-5.40) L Hemoglobin 7.4 G/DL (12.0-16.0) L 6.9 G/DL (12.0-16.0) *L Hematocrit 22.0 % (37.0-47.0) L 20.6 % (37.0-47.0) L Mean Corpuscular Volume 90 FL (80-99) 91 FL (80-99) Mean Corpuscular Hemoglobin 30.5 PG (27.0-31.0) 30.4 PG (27.0-31.0) Mean Corpuscular Hemoglobin Concent 33.7 G/DL (32.0-36.0) 33.4 G/DL (32.0-36.0) Red Cell Distribution Width 14.9 % (11.6-14.8) H 14.6 % (11.6-14.8) Platelet Count 112 K/UL (150-450) L 105 K/UL (150-450) L Mean Platelet Volume 7.2 FL (6.5-10.1) 5.9 FL (6.5-10.1) L Neutrophils (%) (Auto) % (45.0-75.0) % (45.0-75.0) Lymphocytes (%) (Auto) % (20.0-45.0) % (20.0-45.0) Monocytes (%) (Auto) % (1.0-10.0) % (1.0-10.0) Eosinophils (%) (Auto) % (0.0-3.0) % (0.0-3.0) Basophils (%) (Auto) % (0.0-2.0) % (0.0-2.0) Differential Total Cells Counted 100 100 Neutrophils % (Manual) 87 % (45-75) H 81 % (45-75) H Lymphocytes % (Manual) 7 % (20-45) L 11 % (20-45) L Monocytes % (Manual) 5 % (1-10) 8 % (1-10) Eosinophils % (Manual) 0 % (0-3) 0 % (0-3) Basophils % (Manual) 1 % (0-2) 0 % (0-2) Band Neutrophils 0 % (0-8) 0 % (0-8) Platelet Estimate Decreased L Decreased L Platelet Morphology Normal Normal Polychromasia 1+ Hypochromasia 1+ 3+ Anisocytosis 1+ D-Dimer 1.18 mg/L FEU (0.00-0.49) H Spherocytes 2+ Sodium Level 143 MMOL/L (136-145) Potassium Level 3.8 MMOL/L (3.5-5.1) Chloride Level 113 MMOL/L (98-107) H Carbon Dioxide Level 23 MMOL/L (21-32) Anion Gap 7 mmol/L (5-15) Blood Urea Nitrogen 42 mg/dL (7-18) H Creatinine 1.2 MG/DL (0.55-1.30) Estimat Glomerular Filtration Rate mL/min (>60) Glucose Level 160 MG/DL (74-106) H Uric Acid 9.5 MG/DL (2.6-7.2) H Calcium Level 8.3 MG/DL (8.5-10.1) L Phosphorus Level 2.9 MG/DL (2.5-4.9) Magnesium Level 2.0 MG/DL (1.8-2.4) Total Bilirubin 1.5 MG/DL (0.2-1.0) H Direct Bilirubin 0.5 MG/DL (0.0-0.3) H Aspartate Amino Transf (AST/SGOT) 13 U/L (15-37) L Alanine Aminotransferase (ALT/SGPT) 19 U/L (12-78) Alkaline Phosphatase 56 U/L (46-116) C-Reactive Protein, Quantitative 16.7 mg/dL (0.00-0.90) H Pro-B-Type Natriuretic Peptide 24366 pg/mL (0-125) H Total Protein 5.3 G/DL (6.4-8.2) L Albumin 2.5 G/DL (3.4-5.0) L Globulin 2.8 g/dL Albumin/Globulin Ratio 0.9 (1.0-2.7) L Urine Eosinophils Few (NONE SEEN) Arterial Blood pH 7.362 (7.350-7.450) Arterial Blood Partial Pressure CO2 36.7 mmHg (35.0-45.0) Arterial Blood Partial Pressure O2 92.9 mmHg (75.0-100.0) Arterial Blood HCO3 20.4 mmol/L (22.0-26.0) L Arterial Blood Oxygen Saturation 96.3 % (95-100) Arterial Blood Base Excess -4.6 (-2-2) L Rodolfo Test Positive Objective HEAD AND NECK: No JVD. LUNGS: Clear. CARDIOVASCULAR: Regular S1 and S2 with no gallop. ABDOMEN: Soft. EXTREMITIES: Trace pitting edema. Anderson Reddy MD Jun 04, 2019 14:51
[2019-06-04] MEDS ORDERED: NS 275ml ONE ×2 (15:05→16:35)
[2019-06-04 16:00] VITALS: BP 130/47
--- NOTE | 2019-06-04 17:52 | NUR ---
NURSE NOTES: Patient on and off restless pulling BIPAP,keep restraints CT scan not done patient unstable,will desaturate,BIPAP off Dr. Kenya hager and Dr. Miranda Addendum: 06/04/19 at 1758 by Onel GUERRA RN oral care,skin care done,keep head elevated,aspiration didier care done,franco off floor
--- NOTE | 2019-06-04 18:50 | NUR ---
NURSE NOTES: PATIENT PULLED BIPAP,with restraints,able to take it out,moved to 237-2 close to nurses ,place on 100 % non rebreather keeps screaming i can't breathe,saturation 97 %,place on BIPAP by respiratory therapist
--- NOTE | 2019-06-04 19:20 | NUR ---
NURSE NOTES: [facility] transfer center called provided with informations
--- NOTE | 2019-06-04 19:29 | NUR ---
HAND-OFF: Report given to RN Felicia Salamanca,patient on BIPAP calm saturation 100%
--- NOTE | 2019-06-04 19:42 | NUR ---
NURSE NOTES: Received pt from ASHER Menjivar. Pt is oriented x 1-2 and forgetful. Pt remains SR on conveyor monitor, no signs of distress noted at this time. Pt currently on Bipap 15/5 FiO2 45% with an O2 saturation of 97% noted. Pt is currently NPO due to Bipap and risk for aspiration. Left forearm 18g IV catheter noted which remains asymptomatic, intact and patent. Lt/Rt upper arm AV-shunt (dialysis) non-functioning. Skin alterations noted. Spaulding catheter noted and draining to gravity. Bilateral soft wrist restraints in place to prevent patient from removing medical equipment, CMS remains intact. Safety, aspiration and seizure precautions observed. Bed at its lowest position, call light in reach, safety wheels engaged and side rails up and padded x3. Will continue to monitor.
[2019-06-04] MEDS: Atorvastatin 20mg tab ORAL SCH (20:44)
[2019-06-04 21:00] VITALS: BP 148/66
[2019-06-04] MEDS ORDERED: Miralax 17gm pkt ORAL PRN (21:00)
[2019-06-04] MEDS ORDERED: Carvedilol 25mg Tab ORAL SCH (21:00)
--- NOTE | 2019-06-04 21:30 | NUR ---
NURSE NOTES: Pt provided with oral care. Pt tolerated care well. Bipap paused in order to allow for medication administration and oral care, O2 saturation of 95-98% maintained during patient care. Administered pt medications crushed with apple sauce. Pt tolerated crushed medications well. Pt continues resting in bed, bed is in lowest position with safety wheels engaged, bed alarm activated, call light within reach and side rails up x3. Will continue to monitor.
[2019-06-05] VITALS: BP 137/66
--- NOTE | 2019-06-05 00:12 | NUR ---
NURSE NOTES: Pt provided with bed bath, oral care and linen change. Pt tolerated care but was physically combative and verbally aggressive. Pt continue to try and pull at medical equipment despite multiple attempts to educate patient. Pt remains very confused. Pt continues resting in bed, bed is in lowest position with safety wheels engaged, bed alarm activated, call light within reach and side rails up x3 and padded per protocol. Will continue to monitor.
--- NOTE | 2019-06-05 01:22 | NUR ---
NURSE NOTES: Patient restless,pulled BIPAP,replaced,desaturate without BIPAP 86 %,replaced restraints for safety to prevent pulling device off. Will continue to monitor.
--- NOTE | 2019-06-05 02:43 | NUR ---
NURSE NOTES: Patient restless,pulled BIPAP,replaced,desaturate without BIPAP 84 %,replaced restraints for safety to prevent pulling device off. Will continue to monitor.
--- NOTE | 2019-06-05 03:32 | NUR ---
NURSE NOTES: Patient restless,pulled BIPAP,replaced,desaturate without BIPAP 86 %,replaced restraints for safety to prevent pulling device off. Will continue to monitor.
[2019-06-05 04:00] VITALS: BP 150/68
[2019-06-05 04:18] LABS: HEMATOCRIT 21.6 % (37.0-47.0); HEMOGLOBIN 7.1 G/DL (12.0-16.0); MEAN CORPUSCULAR VOLUME 91 FL (80-99); PLATELET COUNT 122 K/UL (150-450); RED BLOOD COUNT 2.38 M/UL (4.20-5.40); RED CELL DISTRIBUTION WIDTH 15.5 % (11.6-14.8); WHITE BLOOD COUNT 6.2 K/UL (4.8-10.8)
[2019-06-05 04:45] LABS: ALANINE AMINOTRANSFERASE 26 U/L (12-78); ALBUMIN 2.6 G/DL (3.4-5.0); ALBUMIN/GLOBULIN RATIO 0.8 (1.0-2.7); ALKALINE PHOSPHATASE 62 U/L (46-116); ANION GAP 9 mmol/L (5-15); ASPARTATE AMINO TRANSFERASE 25 U/L (15-37); BILIRUBIN,TOTAL 1.6 MG/DL (0.2-1.0); BLOOD UREA NITROGEN 42 mg/dL (7-18); CALCIUM 8.8 MG/DL (8.5-10.1); CARBON DIOXIDE 22 MMOL/L (21-32); CHLORIDE 116 MMOL/L (98-107); CREATININE 1.3 MG/DL (0.55-1.30); PHOSPHORUS 1.9 MG/DL (2.5-4.9); POTASSIUM 3.5 MMOL/L (3.5-5.1); SODIUM 147 MMOL/L (136-145)
[2019-06-05 04:47] LABS: BILIRUBIN,DIRECT 0.6 MG/DL (0.0-0.3)
[2019-06-05] MEDS: NovoLOG Insulin Flexpen SUBQ SCH ×4 (05:58→21:28)
--- NOTE | 2019-06-05 06:29 | NUR ---
NURSE NOTES: Called to report H&H and request order for swallow eval Will await a call back. Will continue to monitor.
--- NOTE | 2019-06-05 06:33 | NUR ---
NURSE NOTES: Spoke with Dr Landry regarding H&H, no additional orders for now Change diet to NPO until swallow eval complete. Will carry out orders.
--- NOTE | 2019-06-05 07:03 | NUR ---
HAND-OFF: Report given to ASHER Lemus. Pt remains stable at this time.
--- NOTE | 2019-06-05 07:05 | NUR ---
NURSE NOTES: Received report from ASHER Harris. Observed patient in bed, awake, verbally responsive, confused, restless, and combative. On BiPAP 15/5 FiO2 45%, patient is saturating 96%. Patient is currently NPO as ordered. Left FA IV intact and patent. Spaulding catheter intact and draining to gravity. Bilateral soft wrist restraints noted. Safety precautions in place; bed locked, alarmed, and in lowest position, side rails up x3; placed patient close to nurse's station for close visual monitoring. Will continue plan of care and will continue to monitor patient.
[2019-06-05 08:00] VITALS: BP 158/72
[2019-06-05] MEDS ORDERED: Omnipaque-300 100ml vial INJ PRN (08:45)
[2019-06-05] MEDS: Lactulose 10gm/15ml UDC ORAL SCH ×2 (09:00→17:45)
[2019-06-05] MEDS: Pantoprazole Inj IVP SCH ×2 (09:00→21:03)
[2019-06-05] MEDS: Mycophenolate 250mg cap ORAL SCH ×2 (09:07→17:45)
[2019-06-05] MEDS: Docusate 100mg cap ORAL SCH ×2 (09:07→17:45)
[2019-06-05] MEDS: Carvedilol 25mg Tab ORAL SCH ×2 (09:09→21:06)
--- NOTE | 2019-06-05 10:17 | General Progress Note ---
Assessment/Plan Problem List: (1) GI bleed ICD Codes: K92.2 - Gastrointestinal hemorrhage, unspecified SNOMED: 68146235 (2) Pneumonia ICD Codes: J18.9 - Pneumonia, unspecified organism SNOMED: 289989263 (3) Upper respiratory symptom ICD Codes: R09.89 - Other specified symptoms and signs involving the circulatory and respiratory systems SNOMED: 579624343 (4) Contusion ICD Codes: T14.8 - Other injury of unspecified body region SNOMED: 555853717 Status: deteriorating Assessment/Plan: s/p EGD no obvious active GIB fu H&H transfuse to keep hgb above [address] of abd and pelvic>>>still pending !! npo pending swallow eval pending transfer to [facility] Subjective ROS Limited/Unobtainable: Yes Allergies: Coded Allergies: No Known Allergies (Unverified , 06/26/17) Objective Last 24 Hour Vital Signs Date Time Temp Pulse Resp B/P (MAP) Pulse Ox O2 Delivery O2 Flow Rate FiO2 06/05/19 09:09 80 158/72 06/05/19 08:32 80 22 92 Facial 45 06/05/19 08:00 Bi-pap Bi-pap Bi-pap 06/05/19 08:00 97.5 78 20 158/72 (100) 98 06/05/19 08:00 45 06/05/19 07:51 75 16 100 Facial 45 06/05/19 07:50 100 Bi-Pap 06/05/19 07:49 75 06/05/19 04:56 72 26 100 Facial 45 06/05/19 04:00 45 06/05/19 04:00 98.8 84 18 150/68 (95) 99 06/05/19 04:00 Bi-pap Bi-pap Bi-pap 06/05/19 03:35 74 06/05/19 02:57 67 26 92 Facial 45 06/05/19 01:25 73 16 100 Facial 45 06/05/19 00:26 81 28 94 Facial 45 06/05/19 00:00 98.1 74 20 137/66 (89) 98 06/05/19 00:00 Bi-pap Bi-pap Bi-pap 06/04/19 23:57 72 06/04/19 21:09 73 27 100 Facial 45 06/04/19 21:00 98.7 73 17 148/66 (93) 98 06/04/19 20:44 75 145/85 06/04/19 20:00 Bi-pap Bi-pap Bi-pap 06/04/19 20:00 45 06/04/19 19:23 71 06/04/19 18:59 70 17 100 Facial 45 06/04/19 18:59 100 Bi-Pap 06/04/19 18:00 45 06/04/19 17:28 77 19 100 Facial 45 06/04/19 16:00 71 06/04/19 16:00 97.5 67 16 130/47 (74) 100 06/04/19 16:00 Bi-pap Bi-pap Bi-pap 06/04/19 15:00 70 17 96 Facial 45 06/04/19 12:42 89 13 98 Facial 45 06/04/19 11:47 73 06/04/19 11:15 73 13 97 Facial 45 06/04/19 11:00 Bi-pap Bi-pap Bi-pap 06/04/19 10:59 97.9 75 16 127/55 (79) 100 06/04/19 10:20 Bi-pap Bi-pap Bi-pap Intake and Output 06/04/19 06/05/19 19:00 07:00 Output Total 880 ml 300 ml Balance -880 ml -300 ml Output Urine Total 880 ml 300 ml # Voids 1 Laboratory Tests 06/04/19 10:19: Arterial Blood pH 7.362, Arterial Blood Partial Pressure CO2 36.7, Arterial Blood Partial Pressure O2 92.9, Arterial Blood HCO3 20.4L, Arterial Blood Oxygen Saturation 96.3, Arterial Blood Base Excess -4.6L, Rodolfo Test Positive 06/05/19 03:25: White Blood Count 6.2, Red Blood Count 2.38L, Hemoglobin 7.1L, Hematocrit 21.6L , Mean Corpuscular Volume 91, Mean Corpuscular Hemoglobin 29.9, Mean Corpuscular Hemoglobin Concent 33.0, Red Cell Distribution Width 15.5H, Platelet Count 122L, Mean Platelet Volume 6.8, Neutrophils (%) (Auto) , Lymphocytes (%) (Auto) , Monocytes (%) (Auto) , Eosinophils (%) (Auto) , Basophils (%) (Auto) , Differential Total Cells Counted 100, Neutrophils % ( Manual) 92H, Lymphocytes % (Manual) 5L, Monocytes % (Manual) 3, Eosinophils % ( Manual) 0, Basophils % (Manual) 0, Band Neutrophils 0, Platelet Estimate Adequate, Platelet Morphology Normal, Anisocytosis 1+, Sodium Level 147H, Potassium Level 3.5, Chloride Level 116H, Carbon Dioxide Level 22, Anion Gap 9, Blood Urea Nitrogen 42H, Creatinine 1.3, Estimat Glomerular Filtration Rate , Glucose Level 154H, Uric Acid 10.3H, Calcium Level 8.8, Phosphorus Level 1.9L, Magnesium Level 2.2, Total Bilirubin 1.6H, Direct Bilirubin 0.6H, Aspartate Amino Transf (AST/SGOT) 25, Alanine Aminotransferase (ALT/SGPT) 26, Alkaline Phosphatase 62, C-Reactive Protein, Quantitative 15.3H, Pro-B-Type Natriuretic Peptide 34560P, Total Protein 5.7L, Albumin 2.6L, Globulin 3.1, Albumin/ Globulin Ratio 0.8L Height (Feet): 5 Height (Inches): 2.00 Weight (Pounds): 172 General Appearance: alert EENT: normal ENT inspection Neck: supple Cardiovascular: tachycardia Respiratory/Chest: decreased breath sounds Abdomen: normal bowel sounds, non tender, soft Anuj Gaffney MD Jun 05, 2019 10:17
--- NOTE | 2019-06-05 10:39 | General Progress Note ---
Assessment/Plan Problem List: (1) Severe anemia ICD Codes: D64.9 - Anemia, unspecified SNOMED: 116254936 (2) DMII (diabetes mellitus, type 2) ICD Codes: E11.9 - Type 2 diabetes mellitus without complications SNOMED: 44644489 (3) Acute renal failure ICD Codes: N17.9 - Acute kidney failure, unspecified SNOMED: 62524009 (4) GI bleed ICD Codes: K92.2 - Gastrointestinal hemorrhage, unspecified SNOMED: 28852573 (5) Toe fracture, left ICD Codes: S92.912A - Unspecified fracture of left toe(s), initial encounter for closed fracture SNOMED: 65739024 (6) Contusion ICD Codes: T14.8 - Other injury of unspecified body region SNOMED: 634585888 Status: deteriorating Assessment/Plan: 69 year old female, with acute GI bleed likely upper. 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 IV PPI -GI consult appreciated, s/p EGD, no source of bleeding. No stool for occult blood yet. ?retroperitoneal bleed. For CT abdomen pelvis PENDING -Check stool for occult blood -bipap prn, o2 via nc, keep sats >92% , check ABG -Immunosuppression per nephrology consult -Ortho consult once hemodynamically more stable -Pain control, DC Dilaudid and ativan orders due to lethargy -PCP: Myra garcias, utility bill complaints investigator: Bishop Villar -code: full code -vte ppx: SCD boots I spent 40 minutes on this patient's case, and 20 mins dedicated to counselling and care coordination. case d/w consultants and patient's pcp Dr. Villar. I spent an extra 31 minutes extended time. I spoke to PCP myra Garcias and outside utility bill complaints investigator regarding transferring the patient to [facility]. She will be placed on transfer list. BIJAN Beasley informed to fax face sheet. case d/w with son Fracisco at bedside at length. his number is [phone] if he needs to be reached. time of this note may not reflect time of encounter. Subjective Date patient seen: Jun 05, 2019 ROS Limited/Unobtainable: Yes Allergies: Coded Allergies: No Known Allergies (Unverified , 06/26/17) Subjective mental status better, on bipap, hgb stable, waiting for CT, also on the transfer list at [facility]. Objective Last 24 Hour Vital Signs Date Time Temp Pulse Resp B/P (MAP) Pulse Ox O2 Delivery O2 Flow Rate FiO2 06/05/19 09:09 80 158/72 06/05/19 08:32 80 22 92 Facial 45 06/05/19 08:00 Bi-pap Bi-pap Bi-pap 06/05/19 08:00 97.5 78 20 158/72 (100) 98 06/05/19 08:00 45 06/05/19 07:51 75 16 100 Facial 45 06/05/19 07:50 100 Bi-Pap 06/05/19 07:49 75 06/05/19 04:56 72 26 100 Facial 45 06/05/19 04:00 45 06/05/19 04:00 98.8 84 18 150/68 (95) 99 06/05/19 04:00 Bi-pap Bi-pap Bi-pap 06/05/19 03:35 74 06/05/19 02:57 67 26 92 Facial 45 06/05/19 01:25 73 16 100 Facial 45 06/05/19 00:26 81 28 94 Facial 45 06/05/19 00:00 98.1 74 20 137/66 (89) 98 06/05/19 00:00 Bi-pap Bi-pap Bi-pap 06/04/19 23:57 72 06/04/19 21:09 73 27 100 Facial 45 06/04/19 21:00 98.7 73 17 148/66 (93) 98 06/04/19 20:44 75 145/85 06/04/19 20:00 Bi-pap Bi-pap Bi-pap 06/04/19 20:00 45 06/04/19 19:23 71 06/04/19 18:59 70 17 100 Facial 45 06/04/19 18:59 100 Bi-Pap 12/31/19 18:00 45 06/04/19 17:28 77 19 100 Facial 45 06/04/19 16:00 71 06/04/19 16:00 97.5 67 16 130/47 (74) 100 06/04/19 16:00 Bi-pap Bi-pap Bi-pap 06/04/19 15:00 70 17 96 Facial 45 06/04/19 12:42 89 13 98 Facial 45 06/04/19 11:47 73 06/04/19 11:15 73 13 97 Facial 45 06/04/19 11:00 Bi-pap Bi-pap Bi-pap 06/04/19 10:59 97.9 75 16 127/55 (79) 100 Intake and Output 06/04/19 06/05/19 19:00 07:00 Output Total 880 ml 300 ml Balance -880 ml -300 ml Output Urine Total 880 ml 300 ml # Voids 1 Laboratory Tests 06/05/19 03:25: White Blood Count 6.2, Red Blood Count 2.38L, Hemoglobin 7.1L, Hematocrit 21.6L , Mean Corpuscular Volume 91, Mean Corpuscular Hemoglobin 29.9, Mean Corpuscular Hemoglobin Concent 33.0, Red Cell Distribution Width 15.5H, Platelet Count 122L, Mean Platelet Volume 6.8, Neutrophils (%) (Auto) , Lymphocytes (%) (Auto) , Monocytes (%) (Auto) , Eosinophils (%) (Auto) , Basophils (%) (Auto) , Differential Total Cells Counted 100, Neutrophils % ( Manual) 92H, Lymphocytes % (Manual) 5L, Monocytes % (Manual) 3, Eosinophils % ( Manual) 0, Basophils % (Manual) 0, Band Neutrophils 0, Platelet Estimate Adequate, Platelet Morphology Normal, Anisocytosis 1+, Sodium Level 147H, Potassium Level 3.5, Chloride Level 116H, Carbon Dioxide Level 22, Anion Gap 9, Blood Urea Nitrogen 42H, Creatinine 1.3, Estimat Glomerular Filtration Rate , Glucose Level 154H, Uric Acid 10.3H, Calcium Level 8.8, Phosphorus Level 1.9L, Magnesium Level 2.2, Total Bilirubin 1.6H, Direct Bilirubin 0.6H, Aspartate Amino Transf (AST/SGOT) 25, Alanine Aminotransferase (ALT/SGPT) 26, Alkaline Phosphatase 62, C-Reactive Protein, Quantitative 15.3H, Pro-B-Type Natriuretic Peptide 00676P, Total Protein 5.7L, Albumin 2.6L, Globulin 3.1, Albumin/ Globulin Ratio 0.8L Height (Feet): 5 Height (Inches): 2.00 Weight (Pounds): 172 Objective General Appearance: moderate distress, + bipa EENT: PERRL/EOMI Neck: supple Cardiovascular: normal peripheral pulses, normal rate, no gallop/murmur Respiratory/Chest: lungs clear, respiratory distress, accessory muscle use Abdomen: soft, tender Edema: trace edema Neurologic: awake, alert, Cristian Zambrano M.D. Jun 05, 2019 10:39
[2019-06-05 11:27] VITALS: BP 159/73
--- NOTE | 2019-06-05 13:45 | NUR ---
NURSE NOTES: Patient noted to be restless, trying to pull out BiPAP mask, and trying to remove restraints. Placed patient on Venturi Mask 55%, 14L. Saturating 95-97%. Patient able to tolerate apple sauce with some water. No coughing noted. Will continue to monitor.
[2019-06-05] MEDS ORDERED: Potassium Phosphate 30 MM in Sodium Chloride 550 ML IV ONE (15:00)
--- NOTE | 2019-06-05 15:24 | Nephrology Progress Note ---
Assessment/Plan Problem List: (1) Acute renal failure Assessment: Cr lowering (2) DMII (diabetes mellitus, type 2) (3) Severe anemia (4) Kidney transplant status Assessment Severe Anemia transfused 5 units Acute renal failure- Cr down to 1.1 from 1.4 from 1.6 s/p Kidney Tx DM Obese Hypotension h/o Obstructive uropathy CAD At fib Carotid Stenosis CVA s/p cholecystectomy Plan renal parameters stable Adjust BP meds ABG reviewed Hold mind altering meds CT abd pending Spaulding Fluid challenge as needed more transfusion for low H&H IV Iron once monitor renal parameters Keep BP and BS in check ECHO RESULTS?? 65% Per orders Subjective ROS Limited/Unobtainable: No Constitutional: Reports: malaise, weakness Objective Objective Last 24 Hour Vital Signs Date Time Temp Pulse Resp B/P (MAP) Pulse Ox O2 Delivery O2 Flow Rate FiO2 06/05/19 14:36 77 20 100 Venturi Mask 14.0 55 06/05/19 12:54 71 30 99 Facial 45 06/05/19 12:00 Bi-pap Bi-pap Bi-pap 06/05/19 12:00 45 06/05/19 11:42 77 21 100 Facial 45 06/05/19 11:39 74 06/05/19 11:27 98.3 73 18 159/73 (101) 99 73 73 06/05/19 09:09 80 158/72 06/05/19 08:32 80 22 92 Facial 45 06/05/19 08:00 Bi-pap Bi-pap Bi-pap 06/05/19 08:00 97.5 78 20 158/72 (100) 98 06/05/19 08:00 45 06/05/19 07:51 75 16 100 Facial 45 06/05/19 07:50 100 Bi-Pap 06/05/19 07:49 75 06/05/19 04:56 72 26 100 Facial 45 06/05/19 04:00 45 06/05/19 04:00 98.8 84 18 150/68 (95) 99 06/05/19 04:00 Bi-pap Bi-pap Bi-pap 06/05/19 03:35 74 06/05/19 02:57 67 26 92 Facial 45 06/05/19 01:25 73 16 100 Facial 45 06/05/19 00:26 81 28 94 Facial 45 06/05/19 00:00 98.1 74 20 137/66 (89) 98 06/05/19 00:00 Bi-pap Bi-pap Bi-pap 06/04/19 23:57 72 06/04/19 21:09 73 27 100 Facial 45 06/04/19 21:00 98.7 73 17 148/66 (93) 98 06/04/19 20:44 75 145/85 06/04/19 20:00 Bi-pap Bi-pap Bi-pap 06/04/19 20:00 45 06/04/19 19:23 71 06/04/19 18:59 70 17 100 Facial 45 06/04/19 18:59 100 Bi-Pap 06/04/19 18:00 45 06/04/19 17:28 77 19 100 Facial 45 06/04/19 16:00 71 06/04/19 16:00 97.5 67 16 130/47 (74) 100 06/04/19 16:00 Bi-pap Bi-pap Bi-pap Intake and Output 06/04/19 06/05/19 19:00 07:00 Output Total 880 ml 300 ml Balance -880 ml -300 ml Output Urine Total 880 ml 300 ml # Voids 1 Laboratory Tests 06/05/19 03:25: White Blood Count 6.2, Red Blood Count 2.38L, Hemoglobin 7.1L, Hematocrit 21.6L , Mean Corpuscular Volume 91, Mean Corpuscular Hemoglobin 29.9, Mean Corpuscular Hemoglobin Concent 33.0, Red Cell Distribution Width 15.5H, Platelet Count 122L, Mean Platelet Volume 6.8, Neutrophils (%) (Auto) , Lymphocytes (%) (Auto) , Monocytes (%) (Auto) , Eosinophils (%) (Auto) , Basophils (%) (Auto) , Differential Total Cells Counted 100, Neutrophils % ( Manual) 92H, Lymphocytes % (Manual) 5L, Monocytes % (Manual) 3, Eosinophils % ( Manual) 0, Basophils % (Manual) 0, Band Neutrophils 0, Platelet Estimate Adequate, Platelet Morphology Normal, Anisocytosis 1+, Sodium Level 147H, Potassium Level 3.5, Chloride Level 116H, Carbon Dioxide Level 22, Anion Gap 9, Blood Urea Nitrogen 42H, Creatinine 1.3, Estimat Glomerular Filtration Rate , Glucose Level 154H, Uric Acid 10.3H, Calcium Level 8.8, Phosphorus Level 1.9L, Magnesium Level 2.2, Total Bilirubin 1.6H, Direct Bilirubin 0.6H, Aspartate Amino Transf (AST/SGOT) 25, Alanine Aminotransferase (ALT/SGPT) 26, Alkaline Phosphatase 62, C-Reactive Protein, Quantitative 15.3H, Pro-B-Type Natriuretic Peptide 66536U, Total Protein 5.7L, Albumin 2.6L, Globulin 3.1, Albumin/ Globulin Ratio 0.8L Height (Feet): 5 Height (Inches): 2.00 Weight (Pounds): 172 General Appearance: no apparent distress Cardiovascular: normal rate Respiratory/Chest: decreased breath sounds Abdomen: soft Objective no change Joaquim Gama MD Jun 05, 2019 15:24
[2019-06-05] MEDS: HydrALAZINE 50mg tab ORAL SCH ×2 (15:43→22:00)
[2019-06-05] MEDS: traMADol 50mg tab ORAL PRN ×2 (15:44→21:55)
[2019-06-05 16:00] VITALS: BP 139/60
--- NOTE | 2019-06-05 16:49 | NUR ---
NURSE NOTES: Patient remained stable on Venturi Mask, saturating 98% at this time. Patient able to tolerate ice chips, supervised. No choking/coughing noted. Will continue to monitor.
--- NOTE | 2019-06-05 18:06 | NUR ---
NURSE NOTES: SonFracisco, at bedside, updated on plan of care. Patient remains stable on Venturi mask at this time. Will continue to monitor. Addendum: 06/05/19 at 1836 by Mariah Arciniega RN Released from restraints at this time; reinforced teaching to patient and son. Instructed son to call for assistance. Will continue to monitor patient.
--- NOTE | 2019-06-05 18:16 | Cardiac Electrophysiology PN ---
Assessment/Plan Assessment/Plan 1. Paroxysmal atrial fibrillation, in sinus rhythm. On Coreg 25 bid. Off anticoagulation in view of gastrointestinal bleed. 2. Inferolateral ischemia on the EKG due to severe anemia. EF 65% 3. Upper GI bleed with hemoglobin of 4.5. S/P 5 units of PRBC. Getting another PRBC today S/P EGD by Dr. Gaffney that showed gastritis and underwent biopsy. Otherwise normal upper gastrointestinal examination. 4. Severe azotemia, likely due to gastrointestinal bleed, status post renal transplant, followed by Dr. Gama, 5. Diabetes. 6. Obesity. 7. History of CVA. 8. History of cholecystectomy. 9. Respiratory failure on BIPAP DW RN Awaiting transfer to [facility] Subjective Subjective Confused on Venturi and in restraints. Was on BIPAP last night Objective Last 24 Hour Vital Signs Date Time Temp Pulse Resp B/P (MAP) Pulse Ox O2 Delivery O2 Flow Rate FiO2 06/05/19 16:14 98.3 06/05/19 16:00 98.6 83 19 139/60 (86) 97 06/05/19 16:00 14.0 55 06/05/19 16:00 Venturi Mask Venturi Mask Venturi Mask 06/05/19 15:43 159/73 06/05/19 15:29 83 06/05/19 14:36 77 20 100 Venturi Mask 14.0 55 06/05/19 12:54 71 30 99 Facial 45 06/05/19 12:00 Bi-pap Bi-pap Bi-pap 06/05/19 12:00 45 06/05/19 11:42 77 21 100 Facial 45 06/05/19 11:39 74 06/05/19 11:27 98.3 73 18 159/73 (101) 99 73 73 06/05/19 09:09 80 158/72 06/05/19 08:32 80 22 92 Facial 45 06/05/19 08:00 Bi-pap Bi-pap Bi-pap 06/05/19 08:00 97.5 78 20 158/72 (100) 98 06/05/19 08:00 45 06/05/19 07:51 75 16 100 Facial 45 06/05/19 07:50 100 Bi-Pap 06/05/19 07:49 75 06/05/19 04:56 72 26 100 Facial 45 06/05/19 04:00 45 06/05/19 04:00 98.8 84 18 150/68 (95) 99 06/05/19 04:00 Bi-pap Bi-pap Bi-pap 06/05/19 03:35 74 06/05/19 02:57 67 26 92 Facial 45 06/05/19 01:25 73 16 100 Facial 45 06/05/19 00:26 81 28 94 Facial 45 06/05/19 00:00 98.1 74 20 137/66 (89) 98 06/05/19 00:00 Bi-pap Bi-pap Bi-pap 06/04/19 23:57 72 06/04/19 21:09 73 27 100 Facial 45 06/04/19 21:00 98.7 73 17 148/66 (93) 98 06/04/19 20:44 75 145/85 06/04/19 20:00 Bi-pap Bi-pap Bi-pap 06/04/19 20:00 45 06/04/19 19:23 71 06/04/19 18:59 70 17 100 Facial 45 06/04/19 18:59 100 Bi-Pap Intake and Output 06/04/19 06/05/19 19:00 07:00 Output Total 880 ml 300 ml Balance -880 ml -300 ml Output Urine Total 880 ml 300 ml # Voids 1 Laboratory Tests Test 06/05/19 03:25 White Blood Count 6.2 K/UL (4.8-10.8) Red Blood Count 2.38 M/UL (4.20-5.40) L Hemoglobin 7.1 G/DL (12.0-16.0) L Hematocrit 21.6 % (37.0-47.0) L Mean Corpuscular Volume 91 FL (80-99) Mean Corpuscular Hemoglobin 29.9 PG (27.0-31.0) Mean Corpuscular Hemoglobin Concent 33.0 G/DL (32.0-36.0) Red Cell Distribution Width 15.5 % (11.6-14.8) H Platelet Count 122 K/UL (150-450) L Mean Platelet Volume 6.8 FL (6.5-10.1) Neutrophils (%) (Auto) % (45.0-75.0) Lymphocytes (%) (Auto) % (20.0-45.0) Monocytes (%) (Auto) % (1.0-10.0) Eosinophils (%) (Auto) % (0.0-3.0) Basophils (%) (Auto) % (0.0-2.0) Differential Total Cells Counted 100 Neutrophils % (Manual) 92 % (45-75) H Lymphocytes % (Manual) 5 % (20-45) L Monocytes % (Manual) 3 % (1-10) Eosinophils % (Manual) 0 % (0-3) Basophils % (Manual) 0 % (0-2) Band Neutrophils 0 % (0-8) Platelet Estimate Adequate Platelet Morphology Normal Anisocytosis 1+ Sodium Level 147 MMOL/L (136-145) H Potassium Level 3.5 MMOL/L (3.5-5.1) Chloride Level 116 MMOL/L (98-107) H Carbon Dioxide Level 22 MMOL/L (21-32) Anion Gap 9 mmol/L (5-15) Blood Urea Nitrogen 42 mg/dL (7-18) H Creatinine 1.3 MG/DL (0.55-1.30) Estimat Glomerular Filtration Rate mL/min (>60) Glucose Level 154 MG/DL (74-106) H Uric Acid 10.3 MG/DL (2.6-7.2) H Calcium Level 8.8 MG/DL (8.5-10.1) Phosphorus Level 1.9 MG/DL (2.5-4.9) L Magnesium Level 2.2 MG/DL (1.8-2.4) Total Bilirubin 1.6 MG/DL (0.2-1.0) H Direct Bilirubin 0.6 MG/DL (0.0-0.3) H Aspartate Amino Transf (AST/SGOT) 25 U/L (15-37) Alanine Aminotransferase (ALT/SGPT) 26 U/L (12-78) Alkaline Phosphatase 62 U/L (46-116) C-Reactive Protein, Quantitative 15.3 mg/dL (0.00-0.90) H Pro-B-Type Natriuretic Peptide 09903 pg/mL (0-125) H Total Protein 5.7 G/DL (6.4-8.2) L Albumin 2.6 G/DL (3.4-5.0) L Globulin 3.1 g/dL Albumin/Globulin Ratio 0.8 (1.0-2.7) L Objective HEAD AND NECK: No JVD. LUNGS: Clear. CARDIOVASCULAR: Regular S1 and S2 with no gallop. ABDOMEN: Soft. EXTREMITIES: Trace pitting edema. Anderson Reddy MD Jun 05, 2019 18:16
--- NOTE | 2019-06-05 19:18 | NUR ---
NURSE NOTES: Received pt from ASHER Lemus. Pt is oriented x 1 and remains confused. Pt remains SR on activities assistant, no signs of distress noted at this time. Pt currently on O2 therapy via Venturi mask at 45% with O2 saturation of 98% noted. Pt is currently NPO except for meds and ice chips until swallow eval is completed. Left forearm 18g IV catheter noted which remains asymptomatic, intact and patent. Lt/Rt upper arm AV-shunt (dialysis) non-functioning. Skin alterations noted. Spaulding catheter noted and draining to gravity. Bilateral soft wrist restraints in place to prevent patient from removing medical equipment, CMS remains intact. Safety, aspiration and seizure precautions observed. Bed at its lowest position, call light in reach, safety wheels engaged and side rails up and padded x3. Will continue to monitor.
--- NOTE | 2019-06-05 19:18 | NUR ---
HAND-OFF: Report given to ASHER Harris. Patient remains in stable condition.
--- NOTE | 2019-06-05 19:37 | NUR ---
NURSE NOTES: Pt provided with bed bath, oral care and linen change. Stool collected for OB, will submit to lab. Pt tolerated care but was physically combative and verbally aggressive. Family present at bedside and educated on restraints, BiPap and Venturi mask. Pt continue to try and pull at medical equipment despite multiple attempts to educate patient and family intervention. Pt continues resting in bed, bed is in lowest position with safety wheels engaged, bed alarm activated, call light within reach and side rails up x3 and padded per protocol. Will continue to monitor.
--- NOTE | 2019-06-05 19:54 | Pulmonology Progress Note ---
Assessment/Plan Assessment/Plan PROBLEM LIST: 1. Acute hypoxemic and hypercapnic respiratory failure. 2. Congestive heart failure with diastolic dysfunction, valvular heart disease, and pulmonary hypertension. 3. 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 4. History of obstructive uropathy. 5. Likely acute on chronic anemia, status post negative EGD, still with suspicion for gastrointestinal source of bleeding. 6. Multiple medical problems: Diabetes, hypertension, congestive heart failure with preserved ejection fraction, paroxysmal atrial fibrillation, history of carotid stenosis, and prior CVA. TREATMENT PLAN: 1. Optimize pulmonary hygiene/mobilize as tolerated. 2. Titrate down FiO2 to keep saturations greater than 90%. 3. BiPAP as needed and nightly. Continue current settings with IPAP of 15, EPAP of 5. 4. Monitor gas exchange 5. P.r.n. DuoNebs. 6. Monitor volumes and renal function, diuresis as able 7. Monitor H and H, transfuse as needed. 8. Follow up GI recs, consider colonoscopy and WCE. Follow-up CTabdomen and pelvis. 9. Aspiration precautions. 10. DVT prophylaxis, SCDs. 11. The patient is a Full Code, continue to discuss goals of care. Subjective Constitutional: Reports: no symptoms HEENT: Repors: no symptoms Respiratory: Reports: productive cough, shortness of breath Gastrointestinal/Abdominal: Reports: no symptoms Genitourinary: Reports: no symptoms Allergies: Coded Allergies: No Known Allergies (Unverified , 06/26/17) Subjective on o2 sats stable on bipap over night positve cough no nv or bleeding not getting Objective Last 24 Hour Vital Signs Date Time Temp Pulse Resp B/P (MAP) Pulse Ox O2 Delivery O2 Flow Rate FiO2 06/05/19 19:10 100 Venturi Mask 10.0 45 06/05/19 16:14 98.3 06/05/19 16:00 98.6 83 19 139/60 (86) 97 06/05/19 16:00 14.0 55 06/05/19 16:00 Venturi Mask Venturi Mask Venturi Mask 06/05/19 15:43 159/73 06/05/19 15:29 83 06/05/19 14:36 77 20 100 Venturi Mask 14.0 55 06/05/19 12:54 71 30 99 Facial 45 06/05/19 12:00 Bi-pap Bi-pap Bi-pap 06/05/19 12:00 45 06/05/19 11:42 77 21 100 Facial 45 06/05/19 11:39 74 06/05/19 11:27 98.3 73 18 159/73 (101) 99 73 73 06/05/19 09:09 80 158/72 06/05/19 08:32 80 22 92 Facial 45 06/05/19 08:00 Bi-pap Bi-pap Bi-pap 06/05/19 08:00 97.5 78 20 158/72 (100) 98 06/05/19 08:00 45 06/05/19 07:51 75 16 100 Facial 45 06/05/19 07:50 100 Bi-Pap 06/05/19 07:49 75 06/05/19 04:56 72 26 100 Facial 45 06/05/19 04:00 45 06/05/19 04:00 98.8 84 18 150/68 (95) 99 06/05/19 04:00 Bi-pap Bi-pap Bi-pap 06/05/19 03:35 74 06/05/19 02:57 67 26 92 Facial 45 06/05/19 01:25 73 16 100 Facial 45 06/05/19 00:26 81 28 94 Facial 45 06/05/19 00:00 98.1 74 20 137/66 (89) 98 06/05/19 00:00 Bi-pap Bi-pap Bi-pap 06/04/19 23:57 72 06/04/19 21:09 73 27 100 Facial 45 06/04/19 21:00 98.7 73 17 148/66 (93) 98 06/04/19 20:44 75 145/85 06/04/19 20:00 Bi-pap Bi-pap Bi-pap 06/04/19 20:00 45 Intake and Output 06/04/19 06/05/19 19:00 07:00 Output Total 880 ml 300 ml Balance -880 ml -300 ml Output Urine Total 880 ml 300 ml # Voids 1 General Appearance: WD/WN Respiratory/Chest: crackles/rales, rhonchi Cardiovascular: normal rate, regular rhythm Abdomen: soft, non tender, no organomegaly Neurologic/Psychiatric: alert, oriented x 3 Laboratory Tests 06/05/19 03:25: White Blood Count 6.2, Red Blood Count 2.38L, Hemoglobin 7.1L, Hematocrit 21.6L , Mean Corpuscular Volume 91, Mean Corpuscular Hemoglobin 29.9, Mean Corpuscular Hemoglobin Concent 33.0, Red Cell Distribution Width 15.5H, Platelet Count 122L, Mean Platelet Volume 6.8, Neutrophils (%) (Auto) , Lymphocytes (%) (Auto) , Monocytes (%) (Auto) , Eosinophils (%) (Auto) , Basophils (%) (Auto) , Differential Total Cells Counted 100, Neutrophils % ( Manual) 92H, Lymphocytes % (Manual) 5L, Monocytes % (Manual) 3, Eosinophils % ( Manual) 0, Basophils % (Manual) 0, Band Neutrophils 0, Platelet Estimate Adequate, Platelet Morphology Normal, Anisocytosis 1+, Sodium Level 147H, Potassium Level 3.5, Chloride Level 116H, Carbon Dioxide Level 22, Anion Gap 9, Blood Urea Nitrogen 42H, Creatinine 1.3, Estimat Glomerular Filtration Rate , Glucose Level 154H, Uric Acid 10.3H, Calcium Level 8.8, Phosphorus Level 1.9L, Magnesium Level 2.2, Total Bilirubin 1.6H, Direct Bilirubin 0.6H, Aspartate Amino Transf (AST/SGOT) 25, Alanine Aminotransferase (ALT/SGPT) 26, Alkaline Phosphatase 62, C-Reactive Protein, Quantitative 15.3H, Pro-B-Type Natriuretic Peptide 91668I, Total Protein 5.7L, Albumin 2.6L, Globulin 3.1, Albumin/ Globulin Ratio 0.8L Current Medications Medications (Trade) Dose Ordered Sig/Charlotte Route PRN Reason Start Time Stop Time Status Last Admin Dose Admin Acetaminophen (Tylenol) 650 mg Q4H PRN ORAL T>100.5 06/04/19 14:15 06/30/19 18:14 Atorvastatin Calcium (Lipitor) 20 mg BEDTIME ORAL 06/04/19 21:00 07/01/19 20:59 06/04/19 20:44 Carvedilol (Coreg) 25 mg EVERY 12 HOURS ORAL 06/04/19 21:00 07/01/19 20:59 06/05/19 09:09 Dextrose (Dextrose 50%) 25 ml Q30M PRN IV Hypoglycemia 06/04/19 11:45 06/30/19 12:14 Dextrose (Dextrose 50%) 50 ml Q30M PRN IV Hypoglycemia 06/04/19 11:45 06/30/19 12:14 Docusate Sodium (Colace) 100 mg TWICE A DAY ORAL 06/04/19 18:00 07/01/19 18:14 06/05/19 17:45 Hydralazine HCl (Apresoline) 25 mg Q8HR ORAL 06/05/19 15:30 07/05/19 15:29 06/05/19 15:43 Insulin Aspart (NovoLOG) BEFORE MEALS AND HS SUBQ 06/04/19 11:30 06/30/19 16:29 06/05/19 17:55 Lactulose (Cephulac) 10 gm BID ORAL 06/04/19 18:00 07/03/19 08:59 06/05/19 17:45 Mycophenolate Mofetil (Cellcept) 500 mg TWICE A DAY ORAL 06/04/19 18:00 07/01/19 18:14 06/05/19 17:45 Ondansetron HCl (Zofran) 4 mg Q6H PRN IVP Nausea & Vomiting 06/04/19 12:15 06/30/19 12:14 Pantoprazole (Protonix) 40 mg EVERY 12 HOURS IVP 06/04/19 21:00 07/01/19 20:59 06/05/19 09:00 Polyethylene Glycol (Miralax) 17 gm HSPRN PRN ORAL Constipation 06/04/19 21:00 06/30/19 20:59 Potassium Phosphate 30 mm/ Sodium Chloride 560 ml @ 93.333 mls/ hr ONCE ONCE IV 06/05/19 15:00 06/05/19 20:59 06/05/19 15:01 Prednisone (predniSONE) 5 mg DAILY ORAL 06/05/19 09:00 07/01/19 08:59 06/05/19 09:07 Sodium Chloride 1,000 ml @ 100 mls/hr Q10H IV 06/05/19 15:30 07/05/19 15:29 06/05/19 15:30 Tacrolimus (Prograf) 2 mg EVERY 12 HOURS ORAL 06/04/19 21:00 06/30/19 20:59 06/05/19 09:09 Temazepam (RestoriL) 7.5 mg HSPRN PRN ORAL insomnia 06/04/19 21:00 06/09/19 20:59 12/31/19 20:44 Tramadol HCl (Ultram) 50 mg Q4H PRN ORAL Mild Pain (Pain Scale 1-3) 06/04/19 14:15 06/08/19 18:14 06/05/19 15:44 Rosa Isela Camejo DO Jun 05, 2019 19:54
[2019-06-05 20:00] VITALS: BP 145/62
[2019-06-05] MEDS: Atorvastatin 20mg tab ORAL SCH (21:03)
--- NOTE | 2019-06-05 22:33 | NUR ---
RESPIRATORY NOTE: Pt placed back on BiPAP 15/5, back up rate 12,40%. Pt on a Facial mask, skin intact, no redness/breakdowns noted. Foam tape applied on pt's nosebridge/cheeks/chin to prevent mask irritations. Pt alert/awake. B/S seun. diminished, nonproductive cough. BiPAP plugged into red outlet, alarms on & audible. Pt in no apparent distress at this time. Will continue plan of care.
[2019-06-06] VITALS: BP 144/59
--- NOTE | 2019-06-06 | NUR ---
NURSE NOTES: Pt provided with bed bath, oral care and linen change. Pt tolerated care well. Pt continue to try and pull at medical equipment despite multiple attempts to educate patient and family intervention. Pt continues resting in bed, bed is in lowest position with safety wheels engaged, bed alarm activated, call light within reach and side rails up x3 and padded per protocol. Will continue to monitor.
[2019-06-06 04:00] VITALS: BP 154/77
[2019-06-06 04:36] LABS: HEMATOCRIT 21.2 % (37.0-47.0); HEMOGLOBIN 7.1 G/DL (12.0-16.0); MEAN CORPUSCULAR VOLUME 90 FL (80-99); PLATELET COUNT 129 K/UL (150-450); RED BLOOD COUNT 2.35 M/UL (4.20-5.40); WHITE BLOOD COUNT 5.8 K/UL (4.8-10.8)
[2019-06-06 05:29] LABS: ALANINE AMINOTRANSFERASE 37 U/L (12-78); ALBUMIN 2.4 G/DL (3.4-5.0); ALBUMIN/GLOBULIN RATIO 0.9 (1.0-2.7); ALKALINE PHOSPHATASE 57 U/L (46-116); ANION GAP 11 mmol/L (5-15); ASPARTATE AMINO TRANSFERASE 32 U/L (15-37); BILIRUBIN,TOTAL 1.3 MG/DL (0.2-1.0); BLOOD UREA NITROGEN 32 mg/dL (7-18); CALCIUM 8.6 MG/DL (8.5-10.1); CARBON DIOXIDE 20 MMOL/L (21-32); CHLORIDE 118 MMOL/L (98-107); PHOSPHORUS 3.2 MG/DL (2.5-4.9); POTASSIUM 3.6 MMOL/L (3.5-5.1); SODIUM 149 MMOL/L (136-145)
[2019-06-06] MEDS: HydrALAZINE 50mg tab ORAL SCH (05:31)
[2019-06-06 05:32] LABS: BILIRUBIN,DIRECT 0.4 MG/DL (0.0-0.3)
[2019-06-06] MEDS: NovoLOG Insulin Flexpen SUBQ SCH ×3 (05:38→16:47)
--- NOTE | 2019-06-06 07:21 | NUR ---
HAND-OFF: Report given to ASHER Lemus. Pt remains stable at this time.
--- NOTE | 2019-06-06 07:23 | NUR ---
NURSE NOTES: Received report from ASHER Harris. Observed patient in bed, awake, verbally responsive, restless, screaming. On Venturi mask 40%, 8L; saturating 98%. HOB elevated. pet sitter shows sinus rhythm. Left FA 18g intact and patent with IV fluids infusing at prescribed rate. Bilateral soft wrist restraints. No s/s of pain at this time. Safety precautions in place, bed locked, alarmed, and in lowest position, side rails up x2, and call light within reach. Will continue plan of care and will continue to monitor patient.
[2019-06-06 08:00] VITALS: BP 147/60
--- NOTE | 2019-06-06 08:46 | CDS Physician Query ---
Clarification is required for compliance, coding accuracy, and to reflect severity of illness for this patient Dear Dr. Zambrano Date 06.06.19 CDS: Elisa Steele Please clarify if the patient had any of the following conditions based on the above clinical findings: ABG pH 7.295L, patient placed on BIPAP upon admission. [ x] Acute Respiratory Failure [ ] Chronic Respiratory Failure [ ] Acute on Chronic Respiratory Failure [ ] Acute Respiratory Distress [ ] Other: [ ] Unable to Determined Present on Admission: [x ] Yes [ ] No [ ] Clinically Undetermined janet zambrano 06/06/2019 ____ Physician signature Date Please also document in your Progress Notes and/or Discharge Summary and indicate if the condition was present on admission. DAKSHAD
--- NOTE | 2019-06-06 08:58 | Nephrology Progress Note ---
Assessment/Plan Problem List: (1) Acute renal failure Assessment: Cr lowering (2) DMII (diabetes mellitus, type 2) (3) Severe anemia (4) Kidney transplant status Assessment Severe Anemia transfused 5 units Acute renal failure- Cr down to 1.1 from 1.4 from 1.6 s/p Kidney Tx DM Obese Hypotension h/o Obstructive uropathy CAD At fib Carotid Stenosis CVA s/p cholecystectomy Plan renal parameters stable Adjust BP meds ABG reviewed Hold mind altering meds CT abd pending Spaulding Fluid challenge as needed more transfusion for low H&H IV Iron once monitor renal parameters Keep BP and BS in check ECHO RESULTS?? 65% Per orders Subjective ROS Limited/Unobtainable: No Constitutional: Reports: malaise Objective Objective Last 24 Hour Vital Signs Date Time Temp Pulse Resp B/P (MAP) Pulse Ox O2 Delivery O2 Flow Rate FiO2 06/06/19 08:00 8.0 40 06/06/19 08:00 98.1 86 18 147/60 (89) 95 06/06/19 06:50 97 Venturi Mask 8.0 40 06/06/19 05:31 160/77 06/06/19 04:00 Bi-pap Bi-pap Bi-pap 06/06/19 04:00 98.1 77 18 154/77 (102) 98 06/06/19 04:00 45 06/06/19 03:28 73 06/06/19 02:51 70 22 100 Facial 40 06/06/19 00:50 73 23 100 Facial 40 06/06/19 00:00 Venturi Mask Venturi Mask Venturi Mask 06/06/19 00:00 98.2 57 16 144/59 (87) 94 06/05/19 23:12 74 06/05/19 22:30 77 23 100 Facial 40 06/05/19 21:45 45 06/05/19 21:06 91 153/86 06/05/19 20:00 Venturi Mask Venturi Mask Venturi Mask 06/05/19 20:00 98.0 65 22 145/62 (89) 96 06/05/19 20:00 14.0 45 06/05/19 19:13 87 06/05/19 19:10 100 Venturi Mask 10.0 45 06/05/19 16:14 98.3 06/05/19 16:00 98.6 83 19 139/60 (86) 97 06/05/19 16:00 14.0 55 06/05/19 16:00 Venturi Mask Venturi Mask Venturi Mask 06/05/19 15:43 159/73 06/05/19 15:29 83 06/05/19 14:36 77 20 100 Venturi Mask 14.0 55 06/05/19 12:54 71 30 99 Facial 45 06/05/19 12:00 Bi-pap Bi-pap Bi-pap 06/05/19 12:00 45 06/05/19 11:42 77 21 100 Facial 45 06/05/19 11:39 74 06/05/19 11:27 98.3 73 18 159/73 (101) 99 73 73 06/05/19 09:09 80 158/72 Intake and Output 06/05/19 06/06/19 19:00 07:00 Intake Total 823.332 ml 1300 ml Output Total 550 ml 350 ml Balance 273.332 ml 950 ml Intake Oral 100 ml 100 ml IV Total 723.332 ml 1200 ml Output Urine Total 550 ml 350 ml # Bowel Movements 1 Laboratory Tests 06/05/19 22:00: Stool Occult Blood [Pending] 06/06/19 03:50: White Blood Count 5.8, Red Blood Count 2.35L, Hemoglobin 7.1L, Hematocrit 21.2L , Mean Corpuscular Volume 90, Mean Corpuscular Hemoglobin 30.2, Mean Corpuscular Hemoglobin Concent 33.5, Red Cell Distribution Width 15.0H, Platelet Count 129L, Mean Platelet Volume 6.9, Neutrophils (%) (Auto) , Lymphocytes (%) (Auto) , Monocytes (%) (Auto) , Eosinophils (%) (Auto) , Basophils (%) (Auto) , Differential Total Cells Counted 100, Neutrophils % ( Manual) 85H, Lymphocytes % (Manual) 9L, Monocytes % (Manual) 5, Eosinophils % ( Manual) 1, Basophils % (Manual) 0, Band Neutrophils 0, Platelet Estimate DecreasedL, Platelet Morphology Normal, Anisocytosis 1+, Sodium Level 149H, Potassium Level 3.6, Chloride Level 118H, Carbon Dioxide Level 20L, Anion Gap 11 , Blood Urea Nitrogen 32H, Creatinine 1.0, Estimat Glomerular Filtration Rate , Glucose Level 149H, Uric Acid 9.0H, Calcium Level 8.6, Phosphorus Level 3.2, Magnesium Level 2.1, Total Bilirubin 1.3H, Direct Bilirubin 0.4H, Aspartate Amino Transf (AST/SGOT) 32, Alanine Aminotransferase (ALT/SGPT) 37, Alkaline Phosphatase 57, C-Reactive Protein, Quantitative 11.0H, Total Protein 5.2L, Albumin 2.4L, Globulin 2.8, Albumin/Globulin Ratio 0.9L Height (Feet): 5 Height (Inches): 2.00 Weight (Pounds): 173 General Appearance: agitated - at times Cardiovascular: normal rate Respiratory/Chest: decreased breath sounds Abdomen: distended Objective no change Joaquim aGma MD Jun 06, 2019 08:58
[2019-06-06] MEDS: Mycophenolate 250mg cap ORAL SCH ×2 (09:00→17:42)
[2019-06-06] MEDS: Docusate 100mg cap ORAL SCH ×2 (09:00→17:41)
[2019-06-06] MEDS: Lactulose 10gm/15ml UDC ORAL SCH ×2 (09:00→17:41)
[2019-06-06] MEDS: Carvedilol 25mg Tab ORAL SCH ×2 (09:00→20:20)
[2019-06-06] MEDS ORDERED: HydrALAZINE 50mg tab ORAL SCH ×2 (10:00→14:00)
--- NOTE | 2019-06-06 11:14 | General Progress Note ---
Assessment/Plan Problem List: (1) Encephalopathy acute ICD Codes: G93.40 - Encephalopathy, unspecified SNOMED: 00274816, 289130297 (2) Acute respiratory failure with hypoxemia ICD Codes: J96.01 - Acute respiratory failure with hypoxia SNOMED: 819690980 (3) GI bleed ICD Codes: K92.2 - Gastrointestinal hemorrhage, unspecified SNOMED: 05178038 (4) Severe anemia ICD Codes: D64.9 - Anemia, unspecified SNOMED: 343206596 (5) DMII (diabetes mellitus, type 2) ICD Codes: E11.9 - Type 2 diabetes mellitus without complications SNOMED: 57539369 (6) Acute renal failure ICD Codes: N17.9 - Acute kidney failure, unspecified SNOMED: 07499352 (7) Toe fracture, left ICD Codes: S92.912A - Unspecified fracture of left toe(s), initial encounter for closed fracture SNOMED: 70711732 (8) Contusion ICD Codes: T14.8 - Other injury of unspecified body region SNOMED: 521575227 (9) Kidney transplant status ICD Codes: Z94.0 - Kidney transplant status SNOMED: 33005852, 47018058, 951771298 Status: deteriorating Assessment/Plan: 69 year old female, with acute GI bleed likely upper. #Acute toxic metabolic and hypoxic Encephalopathy #Acute upper GI bleed, egd unrevealing, CT abdomen pelvis pending. now with tarry stools, hgb stable #Left foot base 3rd and 4th phalanges fracture, pending ortho evaluation #CKD secondary to obstructive uropathy status post cadaveric renal transplant x2 on chronic immunosuppression #CAD #atrial fibrillation #hypertension #HFpEF #DM II #carotid stenosis #History of CVA Plan: -SDU -Transfuse prbc to hgb 8 given cardiac history . IV PPI -GI consult appreciated, s/p EGD, no source of bleeding. No stool for occult blood yet. ?retroperitoneal bleed. For CT abdomen pelvis PENDING -Check stool for occult blood -bipap prn, o2 via nc, keep sats >92% , check ABG -Immunosuppression per nephrology consult -Ortho consult once hemodynamically more stable -Pain control, DC Dilaudid and ativan orders due to lethargy -PCP: Myra garcias, dispensing optician: Bishop Villar -code: full code -vte ppx: SCD hermes I spent 40 minutes on this patient's case, and 20 mins dedicated to counselling and care coordination. case d/w consultants and patient's pcp Dr. Villar. I spent an extra 31 minutes extended time. I spoke to PCP myra Garcias and outside dispensing optician regarding transferring the patient to [facility]. She will be placed on transfer list. BIJAN Beasley informed to fax face sheet. case d/w with son Fracisco at bedside at length. his number is [phone] if he needs to be reached. time of this note may not reflect time of encounter. Subjective Date patient seen: Jun 06, 2019 ROS Limited/Unobtainable: No Constitutional: Reports: weakness Gastrointestinal/Abdominal: Reports: tarry stools, nausea Allergies: Coded Allergies: No Known Allergies (Unverified , 06/26/17) Subjective more awake, on venti mask. per rn had large black stool. says she is nauseated and wants to throw up. She is going to have cT abdomen pelvis now that more stable Objective Last 24 Hour Vital Signs Date Time Temp Pulse Resp B/P (MAP) Pulse Ox O2 Delivery O2 Flow Rate FiO2 06/06/19 08:00 8.0 40 06/06/19 08:00 98.1 86 18 147/60 (89) 95 06/06/19 06:50 97 Venturi Mask 8.0 40 06/06/19 05:31 160/77 06/06/19 04:00 Bi-pap Bi-pap Bi-pap 06/06/19 04:00 98.1 77 18 154/77 (102) 98 06/06/19 04:00 45 06/06/19 03:28 73 06/06/19 02:51 70 22 100 Facial 40 06/06/19 00:50 73 23 100 Facial 40 06/06/19 00:00 Venturi Mask Venturi Mask Venturi Mask 06/06/19 00:00 98.2 57 16 144/59 (87) 94 06/05/19 23:12 74 06/05/19 22:30 77 23 100 Facial 40 06/05/19 21:45 45 06/05/19 21:06 91 153/86 06/05/19 20:00 Venturi Mask Venturi Mask Venturi Mask 06/05/19 20:00 98.0 65 22 145/62 (89) 96 06/05/19 20:00 14.0 45 06/05/19 19:13 87 06/05/19 19:10 100 Venturi Mask 10.0 45 06/05/19 16:14 98.3 06/05/19 16:00 98.6 83 19 139/60 (86) 97 06/05/19 16:00 14.0 55 06/05/19 16:00 Venturi Mask Venturi Mask Venturi Mask 06/05/19 15:43 159/73 06/05/19 15:29 83 06/05/19 14:36 77 20 100 Venturi Mask 14.0 55 06/05/19 12:54 71 30 99 Facial 45 06/05/19 12:00 Bi-pap Bi-pap Bi-pap 06/05/19 12:00 45 06/05/19 11:42 77 21 100 Facial 45 06/05/19 11:39 74 06/05/19 11:27 98.3 73 18 159/73 (101) 99 73 73 Intake and Output 06/05/19 06/06/19 19:00 07:00 Intake Total 823.332 ml 1300 ml Output Total 550 ml 350 ml Balance 273.332 ml 950 ml Intake Oral 100 ml 100 ml IV Total 723.332 ml 1200 ml Output Urine Total 550 ml 350 ml # Bowel Movements 1 Laboratory Tests 06/05/19 22:00: Stool Occult Blood [Pending] 06/06/19 03:50: White Blood Count 5.8, Red Blood Count 2.35L, Hemoglobin 7.1L, Hematocrit 21.2L , Mean Corpuscular Volume 90, Mean Corpuscular Hemoglobin 30.2, Mean Corpuscular Hemoglobin Concent 33.5, Red Cell Distribution Width 15.0H, Platelet Count 129L, Mean Platelet Volume 6.9, Neutrophils (%) (Auto) , Lymphocytes (%) (Auto) , Monocytes (%) (Auto) , Eosinophils (%) (Auto) , Basophils (%) (Auto) , Differential Total Cells Counted 100, Neutrophils % ( Manual) 85H, Lymphocytes % (Manual) 9L, Monocytes % (Manual) 5, Eosinophils % ( Manual) 1, Basophils % (Manual) 0, Band Neutrophils 0, Platelet Estimate DecreasedL, Platelet Morphology Normal, Anisocytosis 1+, Sodium Level 149H, Potassium Level 3.6, Chloride Level 118H, Carbon Dioxide Level 20L, Anion Gap 11 , Blood Urea Nitrogen 32H, Creatinine 1.0, Estimat Glomerular Filtration Rate , Glucose Level 149H, Uric Acid 9.0H, Calcium Level 8.6, Phosphorus Level 3.2, Magnesium Level 2.1, Total Bilirubin 1.3H, Direct Bilirubin 0.4H, Aspartate Amino Transf (AST/SGOT) 32, Alanine Aminotransferase (ALT/SGPT) 37, Alkaline Phosphatase 57, C-Reactive Protein, Quantitative 11.0H, Total Protein 5.2L, Albumin 2.4L, Globulin 2.8, Albumin/Globulin Ratio 0.9L Height (Feet): 5 Height (Inches): 2.00 Weight (Pounds): 173 Objective General Appearance: moderate respiratory distress on venti mask EENT: PERRL/EOMI Neck: supple Cardiovascular: normal peripheral pulses, normal rate, no gallop/murmur Respiratory/Chest: lungs clear, respiratory distress, accessory muscle use Abdomen: soft, tender Edema: trace edema Neurologic: awake, alert Cristian Zambrano M.D. Jun 06, 2019 11:14
--- NOTE | 2019-06-06 11:43 | GI Progress Note ---
Assessment/Plan Problems: (1) Severe anemia ICD Codes: D64.9 - Anemia, unspecified SNOMED: 501114358 (2) GI bleed ICD Codes: K92.2 - Gastrointestinal hemorrhage, unspecified SNOMED: 73766397 Status: stable Status Narrative Discussed with Dr. Gaffney. Assessment/Plan s/p EGD , no obvious active GIB reported 2 episodes of black stools today, pending OB stool on venturi mask will need colonoscopy when respiratory status more stable pending swallow eval, NGT if needed fu H&H, fu OB stool transfuse to keep hgb above [address] of abd and pelvic pending transfer to [facility] The patient was seen and examined at bedside and all new and available data was reviewed in the patients chart. I agree with the above findings, impression and plan. (Patient seen earlier today. Signature stamp does not reflect patient encounter time.). - Anuj Gaffney MD Subjective Gastrointestinal/Abdominal: Reports: no symptoms Objective Last 24 Hour Vital Signs Date Time Temp Pulse Resp B/P (MAP) Pulse Ox O2 Delivery O2 Flow Rate FiO2 06/06/19 08:00 8.0 40 06/06/19 08:00 98.1 86 18 147/60 (89) 95 06/06/19 06:50 97 Venturi Mask 8.0 40 06/06/19 05:31 160/77 06/06/19 04:00 Bi-pap Bi-pap Bi-pap 06/06/19 04:00 98.1 77 18 154/77 (102) 98 06/06/19 04:00 45 06/06/19 03:28 73 06/06/19 02:51 70 22 100 Facial 40 06/06/19 00:50 73 23 100 Facial 40 06/06/19 00:00 Venturi Mask Venturi Mask Venturi Mask 06/06/19 00:00 98.2 57 16 144/59 (87) 94 06/05/19 23:12 74 06/05/19 22:30 77 23 100 Facial 40 06/05/19 21:45 45 06/05/19 21:06 91 153/86 06/05/19 20:00 Venturi Mask Venturi Mask Venturi Mask 06/05/19 20:00 98.0 65 22 145/62 (89) 96 06/05/19 20:00 14.0 45 1/1/20 19:13 87 06/05/19 19:10 100 Venturi Mask 10.0 45 06/05/19 16:14 98.3 06/05/19 16:00 98.6 83 19 139/60 (86) 97 06/05/19 16:00 14.0 55 06/05/19 16:00 Venturi Mask Venturi Mask Venturi Mask 06/05/19 15:43 159/73 06/05/19 15:29 83 06/05/19 14:36 77 20 100 Venturi Mask 14.0 55 06/05/19 12:54 71 30 99 Facial 45 06/05/19 12:00 Bi-pap Bi-pap Bi-pap 06/05/19 12:00 45 06/05/19 11:42 77 21 100 Facial 45 Intake and Output 06/05/19 06/06/19 19:00 07:00 Intake Total 823.332 ml 1300 ml Output Total 550 ml 350 ml Balance 273.332 ml 950 ml Intake Oral 100 ml 100 ml IV Total 723.332 ml 1200 ml Output Urine Total 550 ml 350 ml # Bowel Movements 1 Laboratory Tests Test 06/05/19 22:00 06/06/19 03:50 Stool Occult Blood Pending White Blood Count 5.8 K/UL (4.8-10.8) Red Blood Count 2.35 M/UL (4.20-5.40) L Hemoglobin 7.1 G/DL (12.0-16.0) L Hematocrit 21.2 % (37.0-47.0) L Mean Corpuscular Volume 90 FL (80-99) Mean Corpuscular Hemoglobin 30.2 PG (27.0-31.0) Mean Corpuscular Hemoglobin Concent 33.5 G/DL (32.0-36.0) Red Cell Distribution Width 15.0 % (11.6-14.8) H Platelet Count 129 K/UL (150-450) L Mean Platelet Volume 6.9 FL (6.5-10.1) Neutrophils (%) (Auto) % (45.0-75.0) Lymphocytes (%) (Auto) % (20.0-45.0) Monocytes (%) (Auto) % (1.0-10.0) Eosinophils (%) (Auto) % (0.0-3.0) Basophils (%) (Auto) % (0.0-2.0) Differential Total Cells Counted 100 Neutrophils % (Manual) 85 % (45-75) H Lymphocytes % (Manual) 9 % (20-45) L Monocytes % (Manual) 5 % (1-10) Eosinophils % (Manual) 1 % (0-3) Basophils % (Manual) 0 % (0-2) Band Neutrophils 0 % (0-8) Platelet Estimate Decreased L Platelet Morphology Normal Anisocytosis 1+ Sodium Level 149 MMOL/L (136-145) H Potassium Level 3.6 MMOL/L (3.5-5.1) Chloride Level 118 MMOL/L (98-107) H Carbon Dioxide Level 20 MMOL/L (21-32) L Anion Gap 11 mmol/L (5-15) Blood Urea Nitrogen 32 mg/dL (7-18) H Creatinine 1.0 MG/DL (0.55-1.30) Estimat Glomerular Filtration Rate mL/min (>60) Glucose Level 149 MG/DL (74-106) H Uric Acid 9.0 MG/DL (2.6-7.2) H Calcium Level 8.6 MG/DL (8.5-10.1) Phosphorus Level 3.2 MG/DL (2.5-4.9) Magnesium Level 2.1 MG/DL (1.8-2.4) Total Bilirubin 1.3 MG/DL (0.2-1.0) H Direct Bilirubin 0.4 MG/DL (0.0-0.3) H Aspartate Amino Transf (AST/SGOT) 32 U/L (15-37) Alanine Aminotransferase (ALT/SGPT) 37 U/L (12-78) Alkaline Phosphatase 57 U/L (46-116) C-Reactive Protein, Quantitative 11.0 mg/dL (0.00-0.90) H Total Protein 5.2 G/DL (6.4-8.2) L Albumin 2.4 G/DL (3.4-5.0) L Globulin 2.8 g/dL Albumin/Globulin Ratio 0.9 (1.0-2.7) L Height (Feet): 5 Height (Inches): 2.00 Weight (Pounds): 173 General Appearance: WD/WN, no apparent distress, alert Cardiovascular: normal rate Respiratory/Chest: normal breath sounds, no respiratory distress Abdominal Exam: normal bowel sounds, non tender, soft Extremities: non-tender Chelsy Bradshaw NP Jun 06, 2019 11:43
[2019-06-06 12:00] VITALS: BP 152/67
--- NOTE | 2019-06-06 12:00 | NUR ---
NURSE NOTES: ST eval unable to be completed today; charge nurse Tiara notified and made aware. Charge nurse spoke with Lori, speech therapist. Patient remains NPO at this time, will continue to monitor.
[2019-06-06] MEDS: Pantoprazole Inj IVP SCH (12:14)
--- NOTE | 2019-06-06 12:30 | NUR ---
NURSE NOTES: Mike Bradshaw NP making rounds, at bedside, notified and made aware of patient's black, tarry stool this morning. Ordered to give half dose of insulin coverage d/t patient NPO. Also notified and made aware that ST eval unable to complete today. No orders noted at this time. Will continue to monitor patient.
--- NOTE | 2019-06-06 12:31 | NUR ---
LANDSCAPE ARCHITECTASSISTANT MANAGER QUALITY MANAGEMENT SI: UNABLE TO AMBULATE,ENCEPHALOPATHY T. 98.1 HR 86 RR 18 B/P 147/68 VM FIO2 45% H/H 7.1/21.2 IS: PREDNISONE COREG APRESOLINE STEP DOWN STATUS
--- NOTE | 2019-06-06 14:00 | NUR ---
NOTES: REFERRED FOR SWALLOW EVAL BY DR. WEEKS (DR LANCASTER AND DR SARMIENTO SEEING PATIENT). CHART REVIEWED AND CONSULTATION VIA TELEPHONE ONLY COMPLETED DUE TO TIME/WORK CONSTRAINTS. DYSPHAGIA RISK FACTORS FOR THIS 69 Y.O.F.: ACUTE ISSUES: WEAKNESS, ENCEPHALOPATHY, UPPER GIB, EGD/BIOPSY 06/03/19, LUNG/CXR BILATERAL INFILTRATES VERSUS EDEMA LEFT STABLE INCREASING BILATERAL PLEURAL EFFUSIONS, PULMONARY CONGESTION, VENTURI-MASK 8 LITERS, FI02 40, RESP RATE 18, SATS 93 TO 97, PER RT 06/05/09 YESTERDAY, SOB AT REST EVEN ON VENTURI-MASK, HIGH BP NOW, LEG PAIN H/O OBESITY, CVA (HIGH SILENT ASPIRATION RISK), ENCEPHALITIS, SEIZURES, RESP D/O NEED FOR BIPAP, PNEUMONIA, GERD (PROTONIX), DIVERTICULOSIS LEFT COLON 01/2019 AT [facility], RENAL TRANSPLANT X2, DM2, HTN, CARDIAC D/O. POLST/AD REGARDING TUBE FEEDINGS - ELECTRONIC MED RECORD NOTED [facility] (NUMBER NOT ON CHART) BUT NO POLST/AD FOUND ONLINE. WILL CHECK PAPER CHART. CURRENTLY NPO EXCEPT MEDS/ICE CHIPS SINCE YESTERDAY 06/05/19; HOWEVER, HE DID TAKE FULL LIQUID DIET ON 06/01/19 50% AND 06/02/19 AND 03/14/25%. RD RECOMMENDED SOFT CHEW CCHO-LOW AND LOW NA DIET AND THIN LIQUIDS IF CLEARED TO HAVE PO DIET. PER RD HE REFUSED ENSURE AND GLUCERNA. INITIAL IMPRESSIONS: HIGH RISK FOR SIGNIFICANT DYSPHAGIA AND SILENT ASPIRATION (GIVEN H/O CVA, CURRENT BILATERAL LUNG INFILTRATES, SOB AT REST EVEN ON VENTURI-MASK) HIGH RISK FOR PERSISTENT POOR PO INTAKE (MOSTLY POOR PRIOR TO NPO STATUS) RECOMMENDATIONS: GIVEN HER HIGH RISK OF SILENT ASPIRATION, IT IS RECOMMENDED THAT THE PATIENT BE CLEARED FOR PO INTAKE VIA MODIFIED BARIUM SWALLOW STUDY ([place] [facility] [place] [facility] UPON TRANSFER) WHEN SHE IS MEDICALLY STABLE AND READY FOR THE STUDY. PER GI JUAN, THE PATIENT IS NOT MEDICALLY READY TO HAVE THIS ASSESSMENT TODAY (CURRENTLY ON CHRIS) CONSERVATIVELY, WOULD RECOMMEND PATIENT CONTINUE TO BE NPO AND CONSIDER INITIATING TEMPORARY NONORAL (NGT 12 BOLIVIAN) FEEDINGS FOR NOW IF PATIENT AND FAMILY ARE RECEPTIVE. CONTINUE WITH ORAL CARE (AND SUCTION IF NEEDED) IF NGT PLACED, USE STRICT ASPIRATION PRECAUTIONS WHEN TUBE FEEDINGS RUNNING. D/W GI VEHICLE MODIFICATION TECHNICIAN JUAN WHO WILL CONFIRM WITH DR WEEKS AND DR LANCASTER AND RELAY TO THE MARI. ASHER LEFT MESSAGE WITH DIETITIANS IN CASE RECOMMENDATIONS NEEDED FOR TUBE FEEDINGS AT THIS TIME. Addendum: 06/06/19 at 1404 by PARDEEP LISA MACHINE COREMAKER LEFT MESSAGE WITH INSTRUCTOR ADJUNCT PHARMACY TECHNICIAN, ELSA, TO TELL PRIMARY GIOVANNI STERLING.
--- NOTE | 2019-06-06 14:30 | NUR ---
HAND-OFF: Report given to ASHER Menjivar.
[2019-06-06] MEDS ORDERED: NS 500ML ONE (15:03)
--- NOTE | 2019-06-06 15:06 | Diagnostic Imaging Report ---
Indication: Abdominal pain Technique: Spiral acquisitions obtained through the abdomen and pelvis. No oral contrast utilized, per emergency room physician request No IV contrast utilized, per referring physician request.. Multiplanar reconstructions were generated. Total dose length product 1359 mGycm. CTDIvol(s) 23 mGy. Dose reduction achieved using automated exposure control Comparison: None Findings: There is image degradation due to respiratory motion artifact. Lack of oral and IV contrast considerably limit the exam There is mild distention of the rectum by feces, rectal diameter up to 6.6 cm. There is evidence of rectal fecal incontinence. No definite evidence of colonic diverticulosis or diverticulitis. Note, however, that portions of the colon are very poorly visualized. What is probably a normal appendix is visualized. No definite gaseous distention of small bowel. Distal esophagus, stomach, duodenum are unremarkable. No definite free or loculated intraperitoneal gas or fluid is evident. There is extensive atherosclerotic vascular calcification. There is a duplicated inferior vena cava. There is a left lower quadrant transplant kidney. Adjacent to the hilum of this, there is a rounded structure with central and rim calcification which measures approximately 4.4 cm in diameter. Extending cephalad from this is a tortuous tubular structure running parallel to the spine which measures approximately 2 cm in diameter, and appears to end blindly in the expected region of the left renal fossa. No left renal remnant is demonstrated and there are surgical clips in this region. There is an extremely atrophic right renal remnant noted. The transplant kidney itself appears unremarkable. The bladder is decompressed, contains a Spaulding catheter. The gallbladder has been removed. The liver is grossly unremarkable. The bile ducts, pancreas, adrenals are unremarkable. The spleen is borderline enlarged. The uterus is absent. No definite pelvic mass or adenopathy. Surgical hardware is seen in the left femur. The visualized lung bases demonstrate extensive basilar parenchymal consolidation bilaterally. There are small bilateral pleural effusions. The heart is enlarged and there is evidence of a percutaneous aortic valve prosthesis. The bones demonstrate degenerative spondylosis and thoracolumbar scoliotic deformity. Impression: Extremely limited exam, as described Left iliac fossa transplant kidney noted. No evidence of hydronephrosis Evidence of prior left nephrectomy Unusual tubular structure extending from the left renal fossa to the left iliac fossa transplant renal sinus. Etiology of this is uncertain, possibly a dilated remnant ureter. This terminates in an unusual rounded calcified structure, the nature of which is uncertain. Appearance is of the rounded structure somewhat suggestive of an aneurysm that this is probably not likely given the relationship to the tubular structure.. Further evaluation with either contrast CT or sonography is recommended to clarify Evidence of mild rectal fecal distention, fecal impaction possible Empty bladder with a Spaulding catheter Evidence of prior cholecystectomy and hysterectomy Borderline splenomegaly Evidence of prior left hip surgery Extensive bilateral basilar pulmonary parenchymal consolidation and atelectasis. Small bilateral pleural effusions Cardiomegaly Evidence of percutaneous aortic valve prosthesis Incidental findings as noted The CT scanner at [facility] is accredited by the [employer] and the scans are performed using protocols designed to limit radiation exposure to as low as reasonably achievable to attain images of sufficient resolution adequate for diagnostic evaluation.
--- NOTE | 2019-06-06 15:08 | Diagnostic Imaging Report ---
Indication: Shortness of breath Technique: One view of the chest Comparison: 06/04/2019 Findings: There is bilateral interstitial and airspace disease again demonstrated. Bilateral pleural effusions are again demonstrated. Aortic valve prosthesis is again demonstrated. Findings are unchanged. Impression: Unchanged, over 2 days, findings as above.
[2019-06-06 16:00] VITALS: BP 161/63
--- NOTE | 2019-06-06 16:06 | Cardiac Electrophysiology PN ---
Assessment/Plan Assessment/Plan 1. Paroxysmal atrial fibrillation, in sinus rhythm on Coreg 25 bid. Off anticoagulation in view of gastrointestinal bleed. 2. Inferolateral ischemia on the EKG due to severe anemia. EF 65% 3. Upper GI bleed with hemoglobin of 4.5. S/P 6 units of PRBC. S/P EGD by Dr. Gaffney that showed gastritis and underwent biopsy. Otherwise normal upper gastrointestinal examination. 4. Severe azotemia, likely due to gastrointestinal bleed, status post renal transplant, followed by Dr. Gama, 5. Diabetes. 6. Obesity. 7. History of CVA. 8. History of cholecystectomy. 9. Respiratory failure on BIPAP DW RN Awaiting transfer to [facility] Subjective Subjective Confused on Venturi and in restraints. Swallow eval could not be completed. NG tube placement pending Objective Last 24 Hour Vital Signs Date Time Temp Pulse Resp B/P (MAP) Pulse Ox O2 Delivery O2 Flow Rate FiO2 06/06/19 12:00 Venturi Mask Venturi Mask Venturi Mask 06/06/19 12:00 98.2 89 18 152/67 (95) 93 06/06/19 12:00 8.0 40 06/06/19 11:47 90 06/06/19 09:00 86 147/60 06/06/19 08:00 8.0 40 06/06/19 08:00 98.1 86 18 147/60 (89) 95 06/06/19 08:00 Venturi Mask Venturi Mask Venturi Mask 06/06/19 07:19 84 06/06/19 06:50 97 Venturi Mask 8.0 40 06/06/19 05:31 160/77 06/06/19 04:00 Bi-pap Bi-pap Bi-pap 06/06/19 04:00 98.1 77 18 154/77 (102) 98 06/06/19 04:00 45 06/06/19 03:28 73 06/06/19 02:51 70 22 100 Facial 40 06/06/19 00:50 73 23 100 Facial 40 06/06/19 00:00 Venturi Mask Venturi Mask Venturi Mask 06/06/19 00:00 98.2 57 16 144/59 (87) 94 06/05/19 23:12 74 06/05/19 22:30 77 23 100 Facial 40 06/05/19 21:45 45 06/05/19 21:06 91 153/86 06/05/19 20:00 Venturi Mask Venturi Mask Venturi Mask 06/05/19 20:00 98.0 65 22 145/62 (89) 96 06/05/19 20:00 14.0 45 06/05/19 19:13 87 06/05/19 19:10 100 Venturi Mask 10.0 45 06/05/19 16:14 98.3 Intake and Output 06/05/19 06/06/19 19:00 07:00 Intake Total 823.332 ml 1300 ml Output Total 550 ml 350 ml Balance 273.332 ml 950 ml Intake Oral 100 ml 100 ml IV Total 723.332 ml 1200 ml Output Urine Total 550 ml 350 ml # Bowel Movements 1 Laboratory Tests Test 06/05/19 22:00 06/06/19 03:50 Stool Occult Blood Positive (NEGATIVE) White Blood Count 5.8 K/UL (4.8-10.8) Red Blood Count 2.35 M/UL (4.20-5.40) L Hemoglobin 7.1 G/DL (12.0-16.0) L Hematocrit 21.2 % (37.0-47.0) L Mean Corpuscular Volume 90 FL (80-99) Mean Corpuscular Hemoglobin 30.2 PG (27.0-31.0) Mean Corpuscular Hemoglobin Concent 33.5 G/DL (32.0-36.0) Red Cell Distribution Width 15.0 % (11.6-14.8) H Platelet Count 129 K/UL (150-450) L Mean Platelet Volume 6.9 FL (6.5-10.1) Neutrophils (%) (Auto) % (45.0-75.0) Lymphocytes (%) (Auto) % (20.0-45.0) Monocytes (%) (Auto) % (1.0-10.0) Eosinophils (%) (Auto) % (0.0-3.0) Basophils (%) (Auto) % (0.0-2.0) Differential Total Cells Counted 100 Neutrophils % (Manual) 85 % (45-75) H Lymphocytes % (Manual) 9 % (20-45) L Monocytes % (Manual) 5 % (1-10) Eosinophils % (Manual) 1 % (0-3) Basophils % (Manual) 0 % (0-2) Band Neutrophils 0 % (0-8) Platelet Estimate Decreased L Platelet Morphology Normal Anisocytosis 1+ Sodium Level 149 MMOL/L (136-145) H Potassium Level 3.6 MMOL/L (3.5-5.1) Chloride Level 118 MMOL/L (98-107) H Carbon Dioxide Level 20 MMOL/L (21-32) L Anion Gap 11 mmol/L (5-15) Blood Urea Nitrogen 32 mg/dL (7-18) H Creatinine 1.0 MG/DL (0.55-1.30) Estimat Glomerular Filtration Rate mL/min (>60) Glucose Level 149 MG/DL (74-106) H Uric Acid 9.0 MG/DL (2.6-7.2) H Calcium Level 8.6 MG/DL (8.5-10.1) Phosphorus Level 3.2 MG/DL (2.5-4.9) Magnesium Level 2.1 MG/DL (1.8-2.4) Total Bilirubin 1.3 MG/DL (0.2-1.0) H Direct Bilirubin 0.4 MG/DL (0.0-0.3) H Aspartate Amino Transf (AST/SGOT) 32 U/L (15-37) Alanine Aminotransferase (ALT/SGPT) 37 U/L (12-78) Alkaline Phosphatase 57 U/L (46-116) C-Reactive Protein, Quantitative 11.0 mg/dL (0.00-0.90) H Total Protein 5.2 G/DL (6.4-8.2) L Albumin 2.4 G/DL (3.4-5.0) L Globulin 2.8 g/dL Albumin/Globulin Ratio 0.9 (1.0-2.7) L Objective HEAD AND NECK: No JVD. LUNGS: Coarse Rhonchi CARDIOVASCULAR: Regular S1 and S2 with no gallop. ABDOMEN: Soft. EXTREMITIES: Trace pitting edema. Anderson Reddy MD Jun 06, 2019 16:06
--- NOTE | 2019-06-06 16:20 | NUR ---
NURSE NOTES: Spoke with patient's sonFracisco via telephone. Updated on patient's plan of care.
--- NOTE | 2019-06-06 16:56 | NUR ---
NURSE NOTES: Patient refusing NGT insertion. Patient states she has "sinus problems". Mike Bradshaw NP notified and made aware.
--- NOTE | 2019-06-06 17:01 | Pulmonology Progress Note ---
Assessment/Plan Problems: (1) Pneumonia (2) Acute renal failure (3) DMII (diabetes mellitus, type 2) (4) Severe anemia (5) Hypertension Assessment/Plan ASSESSMENT: The patient is a 69-year-old female with a history of end-stage renal disease secondary to presumed obstructive uropathy, status post cadaveric transplant x2, presenting with acute anemia presumed to be secondary to gastrointestinal bleed, though her endoscopy was unrevealing. She is progressively hypoxemic likely secondary to decompensated heart failure. Unfortunately, I's and O's have not been managed, but her initial chest x-ray on presentation was suggestive of pulmonary edema with an effusion. We will repeat an x-ray as well as a BNP, but I suspect that the patient will require some diuresis. I will get a D-dimer to rule out venous thromboembolism as well. We will check a repeat ABG to assess baseline gas exchange and I will write for p.r.n. BiPAP. PROBLEM LIST: 1. Acute hypoxemic and hypercapnic respiratory failure. 2. Congestive heart failure with diastolic dysfunction, valvular heart disease, and pulmonary hypertension. 3. 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 4. History of obstructive uropathy. 5. Likely acute on chronic anemia, status post negative EGD, still with suspicion for gastrointestinal source of bleeding. 6. Multiple medical problems: Diabetes, hypertension, congestive heart failure with preserved ejection fraction, paroxysmal atrial fibrillation, history of carotid stenosis, and prior CVA. TREATMENT PLAN: 1. Optimize pulmonary hygiene/mobilize as tolerated. 2. Titrate down FiO2 to keep saturations greater than 90%. 3. BiPAP as needed and nightly. Continue current settings with IPAP of 15, EPAP of 5. 4. Monitor gas exchange 5. P.r.n. DuoNebs. 6. Monitor volumes and renal function, diuresis as able 7. Monitor H and H, transfuse as needed. 8. Follow up GI recs, consider colonoscopy and WCE. 9. Aspiration precautions. 10. DVT prophylaxis, SCDs. 11. The patient is a Full Code, continue to discuss goals of care. Subjective Allergies: Coded Allergies: No Known Allergies (Unverified , 06/26/17) Subjective On and Off BiPAP failed [employer] refused NGT No cough no SOB HH stable Objective Last 24 Hour Vital Signs Date Time Temp Pulse Resp B/P (MAP) Pulse Ox O2 Delivery O2 Flow Rate FiO2 06/06/19 16:36 161/63 06/06/19 16:10 80 06/06/19 16:00 97.7 80 20 161/63 (95) 93 06/06/19 16:00 Venturi Mask Venturi Mask Venturi Mask 06/06/19 16:00 8.0 40 06/06/19 12:00 Venturi Mask Venturi Mask Venturi Mask 06/06/19 12:00 98.2 89 18 152/67 (95) 93 06/06/19 12:00 8.0 40 06/06/19 11:47 90 06/06/19 09:00 86 147/60 06/06/19 08:00 8.0 40 06/06/19 08:00 98.1 86 18 147/60 (89) 95 06/06/19 08:00 Venturi Mask Venturi Mask Venturi Mask 06/06/19 07:19 84 06/06/19 06:50 97 Venturi Mask 8.0 40 06/06/19 05:31 160/77 06/06/19 04:00 Bi-pap Bi-pap Bi-pap 06/06/19 04:00 98.1 77 18 154/77 (102) 98 06/06/19 04:00 45 06/06/19 03:28 73 06/06/19 02:51 70 22 100 Facial 40 06/06/19 00:50 73 23 100 Facial 40 06/06/19 00:00 Venturi Mask Venturi Mask Venturi Mask 06/06/19 00:00 98.2 57 16 144/59 (87) 94 06/05/19 23:12 74 06/05/19 22:30 77 23 100 Facial 40 06/05/19 21:45 45 06/05/19 21:06 91 153/86 06/05/19 20:00 Venturi Mask Venturi Mask Venturi Mask 06/05/19 20:00 98.0 65 22 145/62 (89) 96 06/05/19 20:00 14.0 45 06/05/19 19:13 87 06/05/19 19:10 100 Venturi Mask 10.0 45 Intake and Output 06/05/19 06/06/19 19:00 07:00 Intake Total 823.332 ml 1300 ml Output Total 550 ml 350 ml Balance 273.332 ml 950 ml Intake Oral 100 ml 100 ml IV Total 723.332 ml 1200 ml Output Urine Total 550 ml 350 ml # Bowel Movements 1 General Appearance: no acute distress, cachetic HEENT: normocephalic, atraumatic, anicteric, mucous membranes moist Respiratory/Chest: crackles/rales, rhonchi Cardiovascular: normal peripheral pulses, normal rate, regular rhythm Abdomen: normal bowel sounds, soft, non tender, no organomegaly, non distended , no mass Extremities: no cyanosis, no clubbing, no edema Laboratory Tests 06/05/19 22:00: Stool Occult Blood Positive 06/06/19 03:50: White Blood Count 5.8, Red Blood Count 2.35L, Hemoglobin 7.1L, Hematocrit 21.2L , Mean Corpuscular Volume 90, Mean Corpuscular Hemoglobin 30.2, Mean Corpuscular Hemoglobin Concent 33.5, Red Cell Distribution Width 15.0H, Platelet Count 129L, Mean Platelet Volume 6.9, Neutrophils (%) (Auto) , Lymphocytes (%) (Auto) , Monocytes (%) (Auto) , Eosinophils (%) (Auto) , Basophils (%) (Auto) , Differential Total Cells Counted 100, Neutrophils % ( Manual) 85H, Lymphocytes % (Manual) 9L, Monocytes % (Manual) 5, Eosinophils % ( Manual) 1, Basophils % (Manual) 0, Band Neutrophils 0, Platelet Estimate DecreasedL, Platelet Morphology Normal, Anisocytosis 1+, Sodium Level 149H, Potassium Level 3.6, Chloride Level 118H, Carbon Dioxide Level 20L, Anion Gap 11 , Blood Urea Nitrogen 32H, Creatinine 1.0, Estimat Glomerular Filtration Rate , Glucose Level 149H, Uric Acid 9.0H, Calcium Level 8.6, Phosphorus Level 3.2, Magnesium Level 2.1, Total Bilirubin 1.3H, Direct Bilirubin 0.4H, Aspartate Amino Transf (AST/SGOT) 32, Alanine Aminotransferase (ALT/SGPT) 37, Alkaline Phosphatase 57, C-Reactive Protein, Quantitative 11.0H, Total Protein 5.2L, Albumin 2.4L, Globulin 2.8, Albumin/Globulin Ratio 0.9L Current Medications Medications (Trade) Dose Ordered Sig/Charlotte Route PRN Reason Start Time Stop Time Status Last Admin Dose Admin Acetaminophen (Tylenol) 650 mg Q4H PRN ORAL T>100.5 06/04/19 14:15 06/30/19 18:14 Atorvastatin Calcium (Lipitor) 20 mg BEDTIME ORAL 06/04/19 21:00 07/01/19 20:59 06/05/19 21:03 Barium Sulfate (Readi-Cat 2) 450 ml NOW PRN ORAL Radiology Procedure 06/06/19 09:15 06/08/19 09:06 Carvedilol (Coreg) 25 mg EVERY 12 HOURS ORAL 06/04/19 21:00 07/01/19 20:59 06/05/19 21:06 Dextrose (Dextrose 50%) 25 ml Q30M PRN IV Hypoglycemia 06/04/19 11:45 06/30/19 12:14 Dextrose (Dextrose 50%) 50 ml Q30M PRN IV Hypoglycemia 06/04/19 11:45 06/30/19 12:14 Docusate Sodium (Colace) 100 mg TWICE A DAY ORAL 06/04/19 18:00 07/01/19 18:14 06/05/19 17:45 Hydralazine HCl (Apresoline) 50 mg Q8H ORAL 06/06/19 14:00 07/06/19 13:59 06/06/19 16:36 Insulin Aspart (NovoLOG) BEFORE MEALS AND HS SUBQ 06/04/19 11:30 06/30/19 16:29 06/06/19 16:47 Lactulose (Cephulac) 10 gm BID ORAL 06/04/19 18:00 07/03/19 08:59 06/05/19 17:45 Mycophenolate Mofetil (Cellcept) 500 mg TWICE A DAY ORAL 06/04/19 18:00 07/01/19 18:14 06/05/19 17:45 Ondansetron HCl (Zofran) 4 mg Q6H PRN IVP Nausea & Vomiting 06/04/19 12:15 06/30/19 12:14 Pantoprazole (Protonix) 40 mg EVERY 12 HOURS IVP 06/04/19 21:00 07/01/19 20:59 06/06/19 12:14 Polyethylene Glycol (Miralax) 17 gm HSPRN PRN ORAL Constipation 06/04/19 21:00 06/30/19 20:59 Prednisone (predniSONE) 5 mg DAILY ORAL 06/05/19 09:00 07/01/19 08:59 06/05/19 09:07 Tacrolimus (Prograf) 2 mg EVERY 12 HOURS ORAL 06/04/19 21:00 06/30/19 20:59 06/05/19 21:02 Temazepam (RestoriL) 7.5 mg HSPRN PRN ORAL insomnia 06/04/19 21:00 06/09/19 20:59 06/05/19 21:03 Tramadol HCl (Ultram) 50 mg Q4H PRN ORAL Mild Pain (Pain Scale 1-3) 06/04/19 14:15 06/08/19 18:14 06/05/19 21:55 Jose Miranda MD Jun 06, 2019 17:01
[2019-06-06] MEDS ORDERED: 1/2 NS 1000ml IV ONE (17:13)
--- NOTE | 2019-06-06 17:52 | NUR ---
NURSE NOTES: Patient able to tolerate ice chips and small amount of apple sauce with medications. No coughing noted. Patient remained on Venturi Mask, saturating 96%. Caregiver, Linsey present at bedside. Will continue to monitor.
--- NOTE | 2019-06-06 18:32 | NUR ---
NURSE NOTES: Spoke with patient's sonFracisco via telephone. Per son, he called an ambulance to turkey picker the patient to transfer to another facility. Son was informed that he has to sign AMA for the patient. Per son, he is in [place] at this time, and making his way to this hospital. Charge nurse notified and made aware of son's plan. Charge nurse contacted Dr Rousseau. Awaiting for call back. Patient remains stable at this time, caregiver present at bedside. Will continue to monitor.
--- NOTE | 2019-06-06 18:48 | NUR ---
NURSE NOTES: Dr Swenson covering for Dr Rousseau called back, notified and made aware of son's plan. No further orders at this time. Will continue to monitor patient.
--- NOTE | 2019-06-06 19:05 | NUR ---
HAND-OFF: Report given to ASHER Harris. Patient in stable condition.
--- NOTE | 2019-06-06 19:07 | NUR ---
NURSE NOTES: Received pt from ASHER Lemus. Pt is oriented x 1 and remains confused. Pt remains SR on secured entrance monitor, no signs of distress noted at this time. Pt currently on O2 therapy via Venturi mask at 8 L FiO2 40% with O2 saturation of 96% noted. Pt is currently NPO except for meds and ice chips until swallow eval is completed. Left forearm 18g IV catheter noted which remains asymptomatic, intact and patent. Lt/Rt upper arm AV-shunt (dialysis) non-functioning. Skin alterations noted. Spaulding catheter noted and draining to gravity. Bilateral soft wrist restraints in place to prevent patient from removing medical equipment, CMS remains intact. Family and nurse healthcare manager are present at bedside and educated on safety and aspiration precautions as well as soft wrist restraints and removal criteria/alternative measures. Safety, aspiration and seizure precautions observed. Bed at its lowest position, call light in reach, safety wheels engaged and side rails up and padded x3. Will continue to monitor.
[2019-06-06 20:20] VITALS: BP 160/77
--- NOTE | 2019-06-06 20:42 | NUR ---
AMA: SEE AMA FORM AMA signed by pts son Fracisco York. Patient valuables and medications were released to Fracisco York. Belongings verified upon AMA and son signed belongings list. Fracisco stated pt would be going to [facility] for additional treatment. Patient left AMA via [id number]. Report given to SAHARA James. EMT not aware of where he was taking patient, pt family spoke with EMT and gave directions to [facility]. Family present during report and transfer to [facility]. Family walked with pt out of facility. EMT refused to take any information down during report. Pt remains alert and oriented x 1. When released pt was SR on tele monitor and on venturi mask 8L FiO2@ 40%. EMT showed up to unit without O2, requested that they get oxygen in order to safely transfer pt. RT present at bedside during transfer of pt from bed to [facility] to assist. Spaulding catheter remains intact and patent, refusal to remove. IV catheter removed by pt who pulled it out. Family noted to be giving free access to thin liquids and pt coughing. Family refused all 2000 medication except for Coreg. Medications returned to xis. VS at discharge as follows HR 92, BP 160/7, RR 32, O2 sat 90%, temp 98.[address] Swenson to update pt has left AMA
--- NOTE | 2019-06-06 20:48 | NUR ---
NURSE NOTES: Called and left message with Kari at [facility] to notify MD of AMA discharge. Will await call back.
--- NOTE | 2019-06-06 20:52 | NUR ---
NURSE NOTES: Dr Swenson called back and was notified pt left AMA
--- NOTE | 2019-06-06 21:33 | Discharge Summary ---
Discharge Summary Hospital Course Date of Admission May 31, 2019 at 09:50 Date of Discharge Jun 06, 2019 at 20:50 Admitting Diagnosis weakness, unable to ambulate HPI Patsy York is a 69 year old female who was admitted on May 31, 2019 at 09:50 for Weakness, Unable To Ambulate Consultations GI, orthopedic, pulmonary, cardiology, nephrology Procedures EGD Hospital Course 69 year old female, with acute GI bleed likely upper. #Acute toxic metabolic and hypoxic Encephalopathy #Acute upper GI bleed, egd unrevealing, CT abdomen pelvis pending. now with tarry stools, hgb stable, fecal occult positive #Left foot base 3rd and 4th phalanges fracture, pending ortho evaluation #CKD secondary to obstructive uropathy status post cadaveric renal transplant x2 on chronic immunosuppression #CAD #atrial fibrillation #hypertension #HFpEF #DM II #carotid stenosis #History of CVA Plan: -SDU -Transfuse prbc to hgb 8 given cardiac history . IV PPI -GI consult appreciated, s/p EGD, no source of bleeding. stool + occult blood. ? retroperitoneal bleed. CT abdomen pelvis unrevealing. colonoscopy planned -Check stool for occult blood -bipap prn, o2 via nc, keep sats >92% , check ABG -Immunosuppression per nephrology consult -Ortho consult once hemodynamically more stable -Pain control, DC Dilaudid and ativan orders due to lethargy -PCP: Myra garcias, tibco developer: Bishop Villar -code: full code -vte ppx: SCD boots I spent 40 minutes on this patient's case, and 20 mins dedicated to counselling and care coordination. case d/w consultants and patient's pcp Dr. Villar. I spent an extra 31 minutes extended time. I spoke to PCP myra Garcias and outside tibco developer regarding transferring the patient to [facility]. She will be placed on transfer list. BIJAN Beasley informed to fax face sheet. case d/w with son Fracisco at bedside at length. his number is [phone] if he needs to be reached. Patient's son signed him out AMA via ambulance and took her to [facility] reportedly time of this note may not reflect time of encounter. Discharge Condition Upon Discharge: critical Discharge Disposition Patient was discharged to AMA Discharge Diagnoses: (1) GI bleed (2) Pneumonia (3) Acute respiratory failure with hypoxemia (4) Encephalopathy acute (5) Acute renal failure (6) Severe anemia (7) DMII (diabetes mellitus, type 2) Cristian Zambrano M.D. Jun 06, 2019 21:33
== END 2019-06-06 20:50 | disposition left against medical advice (07) | DRG 377 ==
LOC: EDBD 08:45 → EMR 09:06 → EDBEDREQ 09:32 → 2W 09:50 → EDBEDREQ 10:29 → EDBEDREQSVC 10:29 → EDBEDREQ 11:37 → EDBEDREQSVC 12:29 → EDBEDREQ 12:29 → ICU 14:30 → 2W 06-01 16:23 → 2E 06-04 06:30 → 2W 06-04 12:35
PROC: 30233N1 Transfusion of Nonautologous Red Blood Cells into Peripheral Vein, Percutaneous Approach (ICD-10-PCS; principal; 2019-05-31)
PROC: 5A09457 Assistance with Respiratory Ventilation, 24-96 Consecutive Hours, Continuous Positive Airway Pressure (ICD-10-PCS; 2019-05-31)
PROC: 0DB78ZX Excision of Stomach, Pylorus, Via Natural or Artificial Opening Endoscopic, Diagnostic (ICD-10-PCS; 2019-06-01)
DX: K29.71 Gastritis, unspecified, with bleeding (principal); J18.9 Pneumonia, unspecified organism; G92 Toxic encephalopathy; J96.01 Acute respiratory failure with hypoxia; J96.02 Acute respiratory failure with hypercapnia; N18.6 End stage renal disease; I13.2 Hypertensive heart and chronic kidney disease with heart failure and with stage 5 chronic kidney disease, or end stage renal disease; I50.30 Unspecified diastolic (congestive) heart failure; Z94.0 Kidney transplant status; N17.9 Acute kidney failure, unspecified; G93.1 Anoxic brain damage, not elsewhere classified; N13.8 Other obstructive and reflux uropathy; S92.912A Unspecified fracture of left toe(s), initial encounter for closed fracture; E66.9 Obesity, unspecified; Z68.32 Body mass index [BMI] 32.0-32.9, adult; I48.0 Paroxysmal atrial fibrillation; R79.89 Other specified abnormal findings of blood chemistry; I65.29 Occlusion and stenosis of unspecified carotid artery; S92.512A Displaced fracture of proximal phalanx of left lesser toe(s), initial encounter for closed fracture; X58.XXXA Exposure to other specified factors, initial encounter; E11.22 Type 2 diabetes mellitus with diabetic chronic kidney disease; I25.10 Atherosclerotic heart disease of native coronary artery without angina pectoris; Z86.73 Personal history of transient ischemic attack (TIA), and cerebral infarction without residual deficits; K57.90 Diverticulosis of intestine, part unspecified, without perforation or abscess without bleeding; K64.8 Other hemorrhoids; D64.9 Anemia, unspecified; Z86.718 Personal history of other venous thrombosis and embolism; M10.9 Gout, unspecified; E78.5 Hyperlipidemia, unspecified; Z86.711 Personal history of pulmonary embolism; Z85.89 Personal history of malignant neoplasm of other organs and systems; Z88.6 Allergy status to analgesic agent; Z88.8 Allergy status to other drugs, medicaments and biological substances; Z90.49 Acquired absence of other specified parts of digestive tract; I27.20 Pulmonary hypertension, unspecified
CPT/HCPCS: 36415; 36600; 71045; 74176; 80048; 80053; 80061; 82248; 82270; 82607; 82728; 82746; 82803; 82962; 83036; 83540; 83550; 83605; 83690; 83735; 83880; 84100; 84443; 84484; 84550; 85007; 85025; 85379; 85610; 85730; 86140; 86850; 86900; 86901; 86920; 87081; 89050; 93005; 93306; 93970; 93971; 94003; 94150; 94640; 94660; 94664; 96372; 96374; 96375; 99291; 99292; J1815; J2405; J7030; J7620